=== PATIENT | female | born 1930 | race Caucasian/White ===

== ENCOUNTER 2016-10-02 10:55 | Emergency (ER) | payer MEDICARE ==
--- NOTE | 2016-10-02 12:11 | XR ---
EXAMINATION TYPE: XR chest 2V DATE OF EXAM: 10/02/2016 12:05 PM COMPARISON: Chest x-ray May 27, 2015. CTA chest January 08, 2016. HISTORY: Left-sided chest pain today TECHNIQUE: Frontal and lateral views of the chest are obtained. FINDINGS: Chronic emphysematous change is redemonstrated. There is no focal air space opacity, pleur al effusion, or pneumothorax seen. The cardiac silhouette size is stable in the upper limits of norm al with atherosclerotic and ectatic thoracic aorta redemonstrated. There is metallic stent graft in t he abdominal aorta noted. Prominence of right paratracheal stripe corresponds to brachiocephalic art deonte takeoff on CT. The osseous structures are demineralized. IMPRESSION: Chronic emphysematous change without acute pulmonary process. No significant change from prior studies.
--- NOTE | 2016-10-02 12:11 | ED ---
General Adult HPI - General Chief complaint: Chest Pain Stated complaint: Chest Pain Time Seen by Provider: 10/02/16 11:29 Source: patient, EMS, RN notes reviewed Mode of arrival: EMS Limitations: no limitations - History of Present Illness Initial comments: Chief complaint and history of present illness this is an 86-year-old female here with family. Patient reports she awakened this morning has pain to her left axillary region and wraps around to her upper back with deep breathing. Slightly with coughing. Slightly reproducible with palpation. No rashes noted early shingles discussed. No fever. No productive cough. - Related Data Home Medications Medication Instructions Recorded Confirmed Atorvastatin [Lipitor] 20 mg PO DAILY 10/02/16 10/02/16 amLODIPine [Norvasc] 5 mg PO DAILY 10/02/16 10/02/16 Previous Rx's Medication Instructions Recorded Ibuprofen [Motrin] 400 mg PO Q6HR PRN #20 tab 10/02/16 Allergies Allergy/AdvReac Type Severity Reaction Status Date / Time No Known Allergies Allergy Verified 10/02/16 12:22 Review of Systems ROS Statement: Those systems with pertinent positive or pertinent negative responses have been documented in the HPI. Review of systems no visual acuity changes patient is hard of hearing does not have her hearing aids today. No complaint neck pain. Her discomfort as noted above to the left axillary region. No complaint of shortness of breath. The discomfort does increase with breathing. Does not seem to decrease with splinting the area. No abdominal pain, no nausea ,no vomiting ,no reported neuro deficits., Past medical problems hyperlipidemia hypertension hearing disorder, cancers include stomach, breast twice, cervical and basal cell leg and second surgery for lymphoma the stomach. The patient's also had pulmonary emboli 2 years ago on Xarelto is taken off. The patient's surgeries include tonsils, hysterectomy and two thirds of her stomach removed. Family history sister had pancreatic cancer. Patient has no ALLERGIES. She quit smoking over 20 years ago drinks one glass of wine per night for medicinal purposes. ROS Other: All systems not noted in ROS Statement are negative. Past Medical History Past Medical History: Cancer, Hearing Disorder / Deafness, Hyperlipidemia, Hypertension, Pulmonary Embolus (PE) Additional Past Medical History / Comment(s): cervical ca, lymphoma, bilateral breast cancer, skin cancer, STOMACH CANCER, HX HEPATITIS A CHILD, VERTIgO History of Any Multi-Drug Resistant Organisms: None Reported Past Surgical History: Hysterectomy Additional Past Surgical History / Comment(s): 2/3 stomach removed, bilateral masectomy, skin cancer removal, ETHAN CATARACTS Past Anesthesia/Blood Transfusion Reactions: Motion Sickness Additional Past Anesthesia/Blood Transfusion Reaction / Comment(s): VERTIGO Past Psychological History: No Psychological Hx Reported Additional Psychological History / Comment(s): PT LIVES IN OWN HOME WITH 2 CATS.PT STATED GETS AROUND WITHOUT A CANE OR WALKER. 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 Smoking Status: Former smoker Past Alcohol Use History: Daily Additional Past Alcohol Use History / Comment(s): STARTED SMOKING AT AGE 22 QUIT , ENJOYS 1 GLASS OF RED WINE A NIGHT Past Drug Use History: None Reported - Past Family History Mother Family Medical History: CVA/TIA Additional Family Medical History / Comment(s): AGE 94 IN HER SLEEP. Father Family Medical History: Myocardial Infarction ([place]) Additional Family Medical History / Comment(s): FROM [place] AGE 55 General Exam - General Exam Comments Initial Comments: General: The patient is awake and alert, in no distress, and does not appear acutely ill. States she's has pain to her left axillary region with deep breathing. Started this morning. No known injury. Vital signs show temperature 97.3 pulse 80 respiratory rate 20 pulse ox 99% on 2 L. Blood pressure 161/79. Elevated systolic noted. Patient does have some discomfort. This be rechecked. She will be following up with her family physician in the next 1-4 weeks. Eye: Pupils are equal, round and reactive to light, extra-ocular movements are intact ; there is normal conjunctiva bilaterally. No signs of icterus. Ears, nose, mouth and throat: There are moist mucous membranes and no oral lesions. Neck: The neck is supple, there is no tenderness , no anterior cervical lymphadenopathy, thyroid not enlarged. Cardiovascular: There is a regular rate and rhythm. No murmur, rub or gallop is appreciated. Respiratory: Lungs are clear to auscultation, respirations are non-labored, breath sounds are equal. No wheezes, stridor, rales, or rhonchi. Deep breathing causes discomfort to the left axillary region. Small area over the patient appears to been scratching or itching. Early shingles was discussed she and her family member told to continue to watch this area should she developed shingles this should be reported to her family physician. Gastrointestinal: Soft, non-distended, non-tender abdomen without masses or organomegaly noted. There is no rebound or guarding present. No CVA tenderness. Bowel sounds are unremarkable. No change in appetite or bowel movements. Back: There is no tenderness to palpation in the midline. There is no obvious deformity. No rashes noted. Again early shingles discussed. Musculoskeletal: Normal ROM, no tenderness, right leg slightly edematous left leg normal. She reports her right leg shows a little swollen.. There is no calf tenderness or swelling. Sensation intact. Neurological: No complaint of any neuro deficits, no complaint of balance problems. No evidence of any focal or lateralizing findings. Skin: No rashes noted. Early shingles discussed. Limitations: no limitations Course Vital Signs 10/02/16 10:57 Temperature 97.3 F L Pulse Rate 80 Respiratory 20 Rate Blood Pressure 161/79 O2 Sat by Pulse 99 Oximetry EKG Findings - EKG Comments: EKG Findings:: EKG was done and reviewed at 1113 showing sinus bradycardia rate 57. Left ventricular hypertrophy noted. Age undetermined anterior DE. CO interval is 186 QRS [address] Escalante Medical Decision Making - Medical Decision Making Medical decision making; chest x-ray was done and reviewed by radiologist his impression is a chronic emphysematous changes redemonstrated. There is no focal airspace opacity., Pleural effusion, or pneumothorax seen. Cardiac silhouette size is stable in the upper limits of normal with atherosclerotic and ectatic thoracic aorta redemonstrated. There is metallic stent and graft in the abdominal aorta noted. Prominence of the right peritracheal stripe corresponds to brachial cephalic artery takeoff on CT. The osseous structures are demineralized. Impression; chronic emphysematous changes without acute bony process. No significant change from prior studies. As read by Dr. chi Patient appears to have either pleuritic discomfort or costochondritis. Due to poor hearing problem and advanced age difficulty determine which. We did discuss early onset shingles and this will be watched by her family member who takes care of her. In the meanwhile the patient be placed on ibuprofen 400 mg 1 every 6 hours for the next several days and advised to watch for rash development and follow-up with family physician. Disposition Clinical Impression: Costochondritis, acute Disposition: HOME SELF-CARE Condition: Fair Instructions: Costochondritis (ED) Additional Instructions: Take the pain medication started first with Tylenol if that's not sufficient use ibuprofen. Watch for any rash and may signal shingles. If you do see a rash contact her family physician for antiviral medications. Prescriptions: Ibuprofen [Motrin] 400 mg PO Q6HR PRN #20 tab PRN Reason: Pain Time of Disposition: 12:29
[2016-10-02 12:31] VITALS: BP 161/69; PULSE 56; RESP 17; TEMP 97.5
== END 2016-10-02 12:43 | disposition home or self-care (01) ==
LOC: EC 10:55
DX: M94.0 Chondrocostal junction syndrome [Tietze] (principal); E78.5 Hyperlipidemia, unspecified; I10 Essential (primary) hypertension; H91.90 Unspecified hearing loss, unspecified ear; Z85.028 Personal history of other malignant neoplasm of stomach; Z85.3 Personal history of malignant neoplasm of breast; Z85.41 Personal history of malignant neoplasm of cervix uteri; Z85.828 Personal history of other malignant neoplasm of skin; Z86.711 Personal history of pulmonary embolism; Z87.891 Personal history of nicotine dependence; Z79.899 Other long term (current) drug therapy
CPT/HCPCS: 71020; 93005; 99285

== ENCOUNTER 2016-10-14 11:46 | Observation (INO) | payer MEDICARE ==
--- NOTE | 2016-10-14 12:07 | ED ---
General Adult HPI - General Chief complaint: Chest Pain Stated complaint: abdominal pain Time Seen by Provider: 10/14/16 11:55 Source: patient, RN notes reviewed Mode of arrival: EMS Limitations: physical limitation - History of Present Illness Initial comments: This is an 86-year-old female with past medical history significant for an aortic abdominal aneurysm repair and also she had a pulmonary embolism about one year ago on the right side. Patient comes in today complaining of left- sided chest pain. She states it started yesterday and it's a pressure sensation but it is worse with deep breathing. Patient denies any shortness of breath. Patient denies any radiation of the pain she states it doesn't go to her neck back or arm. Patient denies any diaphoretic episodes. Patient denies any abdominal pain patient denies nausea vomiting or diarrhea. Patient denies any recent fever chills or cough. Patient denies any headache patient denies numbness weakness. Patient denies any dizziness lightheadedness or near syncopal episode. - Related Data Home Medications Medication Instructions Recorded Confirmed Atorvastatin [Lipitor] 20 mg PO DAILY 10/02/16 10/14/16 amLODIPine [Norvasc] 5 mg PO DAILY 10/02/16 10/14/16 Allergies Allergy/AdvReac Type Severity Reaction Status Date / Time No Known Allergies Allergy Verified 10/14/16 11:56 Review of Systems ROS Statement: Those systems with pertinent positive or pertinent negative responses have been documented in the HPI. ROS Other: All systems not noted in ROS Statement are negative. Past Medical History Past Medical History: Cancer, Hearing Disorder / Deafness, Hyperlipidemia, Hypertension, Pulmonary Embolus (PE) Additional Past Medical History / Comment(s): cervical ca, lymphoma, bilateral breast cancer, skin cancer, STOMACH CANCER, HX HEPATITIS A CHILD, VERTIgO History of Any Multi-Drug Resistant Organisms: None Reported Past Surgical History: Hysterectomy Additional Past Surgical History / Comment(s): 2/3 stomach removed, bilateral masectomy, skin cancer removal, ETHAN CATARACTS Past Anesthesia/Blood Transfusion Reactions: Motion Sickness Additional Past Anesthesia/Blood Transfusion Reaction / Comment(s): VERTIGO Past Psychological History: No Psychological Hx Reported Additional Psychological History / Comment(s): PT LIVES IN OWN HOME WITH 2 CATS.PT STATED GETS AROUND WITHOUT A CANE OR WALKER. 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 Smoking Status: Former smoker Past Alcohol Use History: Daily Additional Past Alcohol Use History / Comment(s): STARTED SMOKING AT AGE 22 QUIT , ENJOYS 1 GLASS OF RED WINE A NIGHT Past Drug Use History: None Reported - Past Family History Mother Family Medical History: CVA/TIA Additional Family Medical History / Comment(s): AGE 94 IN HER SLEEP. Father Family Medical History: Myocardial Infarction ([place]) Additional Family Medical History / Comment(s): FROM [place] AGE 55 General Exam - General Exam Comments Initial Comments: GENERAL: Patient is well-developed and well-nourished. Patient is nontoxic and well- hydrated and is in mild distress. ENT: Neck is soft and supple. No significant lymphadenopathy is noted. Oropharynx is clear. Moist mucous membranes. Neck has full range of motion without eliciting any pain. EYES: The sclera were anicteric and conjunctiva were pink and moist. Extraocular movements were intact and pupils were equal round and reactive to light. Eyelids were unremarkable. PULMONARY: Unlabored respirations. Good breath sounds bilaterally. No audible rales rhonchi or wheezing was noted. CARDIOVASCULAR: There is a regular rate and rhythm without any murmurs gallops or rubs. ABDOMEN: Soft and nontender with normal bowel sounds. SKIN: Skin is clear with no lesions or rashes and otherwise unremarkable. NEUROLOGIC: Patient is alert and oriented x3. Cranial nerves II through XII are grossly intact. Motor and sensory are also intact. Normal speech, volume and content. Symmetrical smile. MUSCULOSKELETAL: Normal extremities with adequate strength and full range of motion. No lower extremity swelling or edema. No calf tenderness. LYMPHATICS: No significant lymphadenopathy is noted PSYCHIATRIC: Normal psychiatric evaluation. Limitations: physical limitation Course Vital Signs 10/14/16 10/14/16 10/14/16 11:52 12:12 13:48 Temperature 96.9 F L Pulse Rate 64 70 Pulse Rate [ 63 Crisis Clinician ] Respiratory 18 18 Rate Blood Pressure 184/93 167/64 O2 Sat by Pulse 97 98 Oximetry 10/14/16 14:50 Temperature 97.2 F L Pulse Rate 57 L Pulse Rate [ Crisis Clinician ] Respiratory 20 Rate Blood Pressure 144/63 O2 Sat by Pulse 99 Oximetry Medical Decision Making - Medical Decision Making EKG shows sinus bradycardia 58 bpm. It was 178 QRSs 82 QT interval 418 QTC of 410 per patient's EKG shows no ST segment elevation or depression or T-wave abdomen is noted. Chest x-ray shows normality. patient's d-dimer was elevated i sent the patient for a ct of the chest to rule out pe. radiology read the cat scan and stated there was no PE. Patient still has chest discomfort so the patient will be admitted. Patient will be getting heparin aspirin and Nitropaste and those will continue on the floor. I spoke with because he agreed to admit the patient admitted the patient and consult cardiology I wrote admitting orders. - Lab Data Result diagrams: 10/14/16 12:08 10/14/16 12:08 Lab Results 10/14/16 10/14/16 10/14/16 Range/Units 12:08 12:08 12:08 WBC 7.0 (3.8-10.6) k/uL RBC 5.17 (3.80-5.40) m/uL Hgb 15.6 (11.4-16.0) gm/dL Hct 48.5 H (34.0-46.0) % MCV 94.0 (80.0-100.0) fL MCH 30.2 (25.0-35.0) pg MCHC 32.2 (31.0-37.0) g/dL RDW 14.3 (11.5-15.5) % Plt Count 200 (150-450) k/uL Neutrophils % 63 % Lymphocytes % 24 % Monocytes % 8 % Eosinophils % 3 % Basophils % 0 % Neutrophils # 4.4 (1.3-7.7) k/uL Lymphocytes # 1.7 (1.0-4.8) k/uL Monocytes # 0.5 (0-1.0) k/uL Eosinophils # 0.2 (0-0.7) k/uL Basophils # 0.0 (0-0.2) k/uL PT (9.0-12.0) sec INR (<1.1) APTT (22.0-30.0) sec D-Dimer (<0.60) mg/L FEU Sodium 140 (137-145) mmol/L Potassium 5.0 (3.5-5.1) mmol/L Chloride 104 (98-107) mmol/L Carbon Dioxide 25 (22-30) mmol/L Anion Gap 11 mmol/L BUN 13 (7-17) mg/dL Creatinine 0.85 (0.52-1.04) mg/dL Est GFR (MDRD) Af Amer >60 (>60 ml/min/1.73 sqM) Est GFR (MDRD) Non-Af >60 (>60 ml/min/1.73 sqM) Glucose 95 (74-99) mg/dL Calcium 9.6 (8.4-10.2) mg/dL Magnesium 2.0 (1.6-2.3) mg/dL Total Bilirubin 0.9 (0.2-1.3) mg/dL AST 27 (14-36) U/L ALT 25 (9-52) U/L Alkaline Phosphatase 115 (38-126) U/L Total Creatine Kinase 44 (30-135) U/L CK-MB (CK-2) 0.3 (0.0-2.4) ng/mL CK-MB (CK-2) Rel Index 0.7 Troponin I <0.012 (0.000-0.034) ng/mL Total Protein 6.9 (6.3-8.2) g/dL Albumin 4.0 (3.5-5.0) g/dL 10/14/16 Range/Units 12:08 WBC (3.8-10.6) k/uL RBC (3.80-5.40) m/uL Hgb (11.4-16.0) gm/dL Hct (34.0-46.0) % MCV (80.0-100.0) fL MCH (25.0-35.0) pg MCHC (31.0-37.0) g/dL RDW (11.5-15.5) % Plt Count (150-450) k/uL Neutrophils % % Lymphocytes % % Monocytes % % Eosinophils % % Basophils % % Neutrophils # (1.3-7.7) k/uL Lymphocytes # (1.0-4.8) k/uL Monocytes # (0-1.0) k/uL Eosinophils # (0-0.7) k/uL Basophils # (0-0.2) k/uL PT 10.8 (9.0-12.0) sec INR 1.1 (<1.1) APTT 18.7 L (22.0-30.0) sec D-Dimer 4.49 H (<0.60) mg/L FEU Sodium (137-145) mmol/L Potassium (3.5-5.1) mmol/L Chloride (98-107) mmol/L Carbon Dioxide (22-30) mmol/L Anion Gap mmol/L BUN (7-17) mg/dL Creatinine (0.52-1.04) mg/dL Est GFR (MDRD) Af Amer (>60 ml/min/1.73 sqM) Est GFR (MDRD) Non-Af (>60 ml/min/1.73 sqM) Glucose (74-99) mg/dL Calcium (8.4-10.2) mg/dL Magnesium (1.6-2.3) mg/dL Total Bilirubin (0.2-1.3) mg/dL AST (14-36) U/L ALT (9-52) U/L Alkaline Phosphatase (38-126) U/L Total Creatine Kinase (30-135) U/L CK-MB (CK-2) (0.0-2.4) ng/mL CK-MB (CK-2) Rel Index Troponin I (0.000-0.034) ng/mL Total Protein (6.3-8.2) g/dL Albumin (3.5-5.0) g/dL Critical Care Time Critical Care Time: Yes Total Critical Care Time: 35 Disposition Clinical Impression: Unstable angina pectoris Disposition: ADMITTED IP TO THIS [facility] Time of Disposition: 15:11
[2016-10-14 12:27] LABS: Basophils % (A) 0 %; CH 30.4; CHCM 32.4; Eosinophils # (A) 0.2 k/uL (0-0.7); Eosinophils % (A) 3 %; HCT 48.5 % (34.0-46.0); HDW 2.32; HGB 15.6 gm/dL (11.4-16.0); Luc # (Auto) 0.11; Luc % (Auto) 2; Lymphocytes # (A) 1.7 k/uL (1.0-4.8); Lymphocytes % (A) 24 %; MCH 30.2 pg (25.0-35.0); MCHC 32.2 g/dL (31.0-37.0); Mean Platelet Volume 8.2; Monocytes # (A) 0.5 k/uL (0-1.0); Monocytes % (A) 8 %; Neutrophils # (A) 4.4 k/uL (1.3-7.7); Neutrophils % (A) 63 %; RBC 5.17 m/uL (3.80-5.40); RDW 14.3 % (11.5-15.5); WBC (Perox) 7.23
--- NOTE | 2016-10-14 12:33 | XR ---
EXAMINATION TYPE: XR chest 2V DATE OF EXAM: 10/14/2016 12:26 PM COMPARISON: 10/02/2016 HISTORY: 86-year-old female with left-sided chest pain TECHNIQUE: Frontal and lateral views FINDINGS: Heart is upper limits of normal in size. Aorta and pulmonary vasculature within normal limits. Increa sed AP chest dimension secondary to a pronounced thoracic kyphosis. No consolidation or pleural effus ion seen. There is endovascular stent graft of the abdominal aorta. IMPRESSION: Chronic changes and a marked thoracic kyphosis. No acute cardiopulmonary process seen.
[2016-10-14 12:39] LABS: Anion Gap 11 mmol/L; Calcium 9.6 mg/dL (8.4-10.2); Carbon Dioxide 25 mmol/L (22-30); Chloride 104 mmol/L (98-107); Glucose 95 mg/dL (74-99); Non-African American GFR(MDRD) >60 (>60 ml/min/1.73 sqM); Sodium 140 mmol/L (137-145); Total Bilirubin 0.9 mg/dL (0.2-1.3); Total Protein 6.9 g/dL (6.3-8.2)
[2016-10-14 12:42] LABS: AST 27 U/L (14-36); Blood Urea Nitrogen 13 mg/dL (7-17)
[2016-10-14 12:43] LABS: ALT 25 U/L (9-52); Alkaline Phosphatase 115 U/L (38-126)
[2016-10-14 12:50] LABS: Creatine Kinase 44 U/L (30-135)
[2016-10-14 13:06] LABS: Creatine Kinase MB 0.3 ng/mL (0.0-2.4); Troponin I <0.012 ng/mL (0.000-0.034)
[2016-10-14 13:21] LABS: INR 1.1 (<1.1); Prothrombin Time 10.8 sec (9.0-12.0)
[2016-10-14 13:22] LABS: Partial Thromboplastin Time 18.7 sec (22.0-30.0)
[2016-10-14] MEDS ORDERED: RX INFO: IV CONTRAST WAS GIVEN 1 EACH MISC MISCELLANE PRN (13:25)
--- NOTE | 2016-10-14 14:37 | CT ---
EXAMINATION TYPE: CT chest angio for PE DATE OF EXAM: 10/14/2016 2:12 PM COMPARISON: 01/08/2016 and radiograph same day HISTORY: 86-year-old female with pain, evaluate for PE. TECHNIQUE: Contiguous axial scanning of the chest performed with IV Contrast, patient injected with 1 00 ml mL of Omnipaque 350. Delayed coronal/sagittal MIP reconstructions performed. CT DLP: 322 mGycm Automated exposure control for dose reduction was used. FINDINGS: The heart is upper limits of normal in size without pericardial effusion. Coronary vessel calcificati ons are present and are remarkable for coronary artery disease. Aorta is normal caliber with moderate atherosclerotic calcifications and conventional arch vessel bra nching anatomy. Moderate plaque is present in the proximal left subclavian artery with mild narrowing . There is satisfactory opacification of the pulmonary arterial system with large caliber to the main r ight and left pulmonary arteries which measure 3.1 and 2.7 cm, respectively, suggesting underlying pu lmonary arterial hypertension. There is small amount of mural-based low density along the roof of the distal right main pulmonary artery which may represent small amount of chronic thrombus. No acute pu lmonary embolus is seen. A few nonenlarged mediastinal lymph nodes are present. No thoracic lymphadenopathy. Lungs show mild emphysematous change and some strandy atelectasis at the lung bases. No consolidation or pleural effusion. There is some reflux of contrast into the IVC and hepatic veins. Upper abdomen shows mild diffuse thi ckening of the adrenal glands without discrete nodularity. Abdominal aortic endovascular stent graft is present. Bones: Degenerative disc disease especially in the mid to lower thoracic spine with accentuated thora cic kyphosis. IMPRESSION: 1. NO EVIDENCE FOR ACUTE PULMONARY EMBOLUS. SOME LOW-DENSITY MATERIAL ADHERENT TO THE ROOF OF THE RIG HT MAIN PULMONARY ARTERY COULD REPRESENT SOME CHRONIC THROMBUS. 2. 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
[2016-10-14] MEDS ORDERED: HEPARIN SODIUM,PORCINE 5,000 UNIT/ML 1 ML VIAL IV ONE (15:09)
[2016-10-14] MEDS ORDERED: ASPIRIN 81 MG CHEW PO STA (15:13)
[2016-10-14] MEDS ORDERED: NITROGLYCERIN SL TABS 0.4 MG TAB SUBLINGUAL PRN (15:13)
[2016-10-14] MEDS ORDERED: HEPARIN SODIUM,PORCINE/D5W PMX 25,000 UNIT in DEXTROSE/WATER 1 500ML.BAG IV SCH (15:15)
[2016-10-14] MEDS ORDERED: IBUPROFEN 400 MG TAB PO PRN (16:28)
[2016-10-14] MEDS: NITROGLYCERIN OINT 1 INCH/GM PACKET TOPICAL SCH ×2 (18:18→23:59)
--- NOTE | 2016-10-14 18:18 | P.HPIM ---
History of Present Illness H&P Date: 10/14/16 Chief Complaint: CP 86 yr old with history of multiple cancers, PE, COPD is admitted to the hospital with complaints of left sided chest pain, that started while pt was resting, states it was 6/10, non radiating, exacerbated with deep breathing. No alleviating factors are reported. Pt states that pain has been constant since the last 24 hrs, onset of pain. Denies recent uri symptoms, cough. Pt has had a MALTOMA< Breast cancer times 2, basal cell cancer and cervical cancer. Pt was noted to be hypoxic, CTA was negative on admission, however was noted to have an enlarged pulmonary artery. Review of Systems All systems: negative (noted in HPI) Past Medical History Past Medical History: Cancer, Hearing Disorder / Deafness, Hyperlipidemia, Hypertension, Pulmonary Embolus (PE) Additional Past Medical History / Comment(s): cervical ca, lymphoma, bilateral breast cancer, skin cancer, STOMACH CANCER, HX HEPATITIS A CHILD, VERTIgO History of Any Multi-Drug Resistant Organisms: None Reported Past Surgical History: Hysterectomy Additional Past Surgical History / Comment(s): 2/3 stomach removed, bilateral masectomy, skin cancer removal, ETHAN CATARACTS Past Anesthesia/Blood Transfusion Reactions: Motion Sickness Additional Past Anesthesia/Blood Transfusion Reaction / Comment(s): VERTIGO Past Psychological History: No Psychological Hx Reported Additional Psychological History / Comment(s): PT LIVES IN OWN HOME WITH 2 CATS.PT STATED GETS AROUND WITHOUT A CANE OR WALKER. 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 Smoking Status: Former smoker Past Alcohol Use History: Daily Additional Past Alcohol Use History / Comment(s): STARTED SMOKING AT AGE 22 QUIT , ENJOYS 1 GLASS OF RED WINE A NIGHT Past Drug Use History: None Reported - Past Family History Mother Family Medical History: CVA/TIA Additional Family Medical History / Comment(s): AGE 94 IN HER SLEEP. Father Family Medical History: Myocardial Infarction ([place]) Additional Family Medical History / Comment(s): FROM [place] AGE 55 Medications and Allergies Home Medications Medication Instructions Recorded Confirmed Type Atorvastatin [Lipitor] 20 mg PO DAILY 10/02/16 10/14/16 History amLODIPine [Norvasc] 5 mg PO DAILY 10/02/16 10/14/16 History Allergies Allergy/AdvReac Type Severity Reaction Status Date / Time No Known Allergies Allergy Verified 10/14/16 11:56 Physical Exam Vitals: Vital Signs Temp Pulse Pulse Resp BP BP Pulse Ox 10/14/16 16:00 98.0 F 68 18 142/61 98 10/14/16 15:45 98.4 F 10/14/16 15:42 69 18 160/71 99 Intake and Output 10/14/16 10/14/16 10/14/16 06:59 14:59 22:59 Intake Total 100 Balance 100 Intake: Oral 100 Other: Weight 51.2 kg Patient Weight 10/15/16 06:59 Weight 51.2 kg Gen alert oriented times 3 Lungs Diminished breath sounds, no wheezing, crackles HEart RRR< s1, s2 heard, no mumurs Abdomen Soft , non tender BS present, no organomegaly. Lower ext no edema noted. Neuro No focal motor or sensory deficits noted. At baseline, pt doesnot ambualte, is bedridden most of the time. Results CBC & Chem 7: 10/14/16 12:08 10/14/16 12:08 Assessment and Plan Plan: 1. Acute hypoxic respiratory failure, unknown etiology , question of chronic hypoxia 2. Atypical CP, rule out acs, unlikely cardiac in nature 3. HTN, stable 4. COPD, 5. Underlying pulmonary HTN 6. Dyslipidemia 7. Multiple cancers, currently in remission Plan Echocardiogram to eval RVSP. Titrate down o2. O2 test at bedside Cardiology consult. Cardiac enzymes.
[2016-10-14 18:42] LABS: Creatine Kinase <20 U/L (30-135)
[2016-10-14 18:54] LABS: Troponin I <0.012 ng/mL (0.000-0.034)
[2016-10-14 18:59] LABS: Creatine Kinase MB <0.2 ng/mL (0.0-2.4)
[2016-10-15 00:58] LABS: Creatine Kinase <20 U/L (30-135)
[2016-10-15 01:11] LABS: Creatine Kinase MB 0.3 ng/mL (0.0-2.4); Troponin I <0.012 ng/mL (0.000-0.034)
[2016-10-15 01:30] LABS: Cholesterol 146 mg/dL (<200); HDL Cholesterol 74 mg/dL (40-60); Triglycerides 82 mg/dL (<150)
[2016-10-15] MEDS: NITROGLYCERIN OINT 1 INCH/GM PACKET TOPICAL SCH ×2 (06:38→12:36)
[2016-10-15] MEDS ORDERED: ATORVASTATIN 20 MG TAB PO SCH (09:00)
[2016-10-15] MEDS ORDERED: ASPIRIN 325 MG TAB PO SCH (09:00)
[2016-10-15] MEDS ORDERED: amLODIPine 5 MG TAB PO SCH (09:00)
--- NOTE | 2016-10-15 10:08 | ECHOF ---
Referral Reason:pulmonary HTN MEASUREMENTS -------- HEIGHT: 157.5 cm WEIGHT: 50.8 kg BP: RVIDd: 2.4 cm (< 3.3) IVSd: 0.9 cm (0.6 - 1.1) LVIDd: 4.1 cm (3.9 - 5.3) LVPWd: 1.0 cm (0.6 - 1.1) IVSs: 1.2 cm LVIDs: 3.1 cm LVPWs: 1.4 cm LA Diam: 3.5 cm (2.7 - 3.8) LAESV Index (A-L): 25.98 ml/m Ao Diam: 3.1 cm (2.0 - 3.7) AV Cusp: 1.9 cm (1.5 - 2.6) LA Diam: 3.3 cm (2.7 - 3.8) MV EXCURSION: 16.703 mm (> 18.000) MV EF SLOPE: 73 mm/s (70 - 150) EPSS: 0.5 cm MV E Brendan: 0.45 m/s MV DecT: 374 ms MV A Brendan: 0.80 m/s MV E/A Ratio: 0.56 RAP: 5.00 mmHg RVSP: 24.28 mmHg FINDINGS -------- Sinus rhythm. This was a technically adequate study. There is mild concentric left ventricular hypertrophy. Overall left ventricular systolic function is low-normal with, an EF between 50 - 55 %. The right ventricle is normal in size. Normal LA size by volume 22+/-6 ml/m2. There is an area of intrest seen in the RA There is mild aortic valve sclerosis. There is no evidence of aortic regurgitation. Mild mitral annular calcification present. Mild mitral regurgitation is present. Mild tricuspid regurgitation present. There is no evidence of pulmonary hypertension. The right ventricular systolic pressure, as measured by Doppler, is 24.28mmHg. There is no pulmonic regurgitation present. The aortic root size is normal. There is no pericardial effusion. CONCLUSIONS -------- 1. There is mild concentric left ventricular hypertrophy. 2. Overall left ventricular systolic function is low-normal with, an EF between 50 - 55 %. 3. There is mild aortic valve sclerosis. 4. Mild mitral annular calcification present. 5. Mild mitral regurgitation is present. 6. Mild tricuspid regurgitation present. 7. There is no evidence of pulmonary hypertension. 8. The right ventricular systolic pressure, as measured by Doppler, is 24.28mmHg. AIRPLANE RIGGER: Oneida Georges RDCS
--- NOTE | 2016-10-15 10:43 | P.CRDCN ---
History of Present Illness Consult date: 10/15/16 Chief complaint: Chest discomfort History of present illness: This is a pleasant 86-year-old female patient who sees Dr. Ortiz as an outpatient with a known history of breast cancer and history of PE presented to the hospital was atypical and pleuritic chest discomfort. In view of her history she underwent a CTA of the chest which showed no evidence of acute PE but chronic PE. The EKG showed sinus rhythm without any significant ST or T-wave abnormalities. She had 3 sets of cardiac enzymes came in to be unremarkable. I recommended proceeding with a stress test. The patient would like to go home and have the test done as an outpatient. I will get the patient up and around and she is asymptomatic she can be discharged home when she follows with Dr. Ortiz in the office next week. Past Medical History Past Medical History: Cancer, Hearing Disorder / Deafness, Hyperlipidemia, Hypertension, Pulmonary Embolus (PE) Additional Past Medical History / Comment(s): cervical ca, lymphoma, bilateral breast cancer, skin cancer, STOMACH CANCER, HX HEPATITIS A CHILD, VERTIgO, AAA(UNK SIZE), UTI, EATS SMALL FREQ MEALS D/T HAVING 2/3 STOMACH REMOVED. History of Any Multi-Drug Resistant Organisms: None Reported Past Surgical History: Hysterectomy Additional Past Surgical History / Comment(s): 2/3 stomach removed, bilateral masectomy, skin cancer removal, ETHAN CATARACTS Past Anesthesia/Blood Transfusion Reactions: Motion Sickness Additional Past Anesthesia/Blood Transfusion Reaction / Comment(s): VERTIGO Past Psychological History: No Psychological Hx Reported Additional Psychological History / Comment(s): PT LIVES IN OWN HOME WITH 1 CAT.PT STATED GETS AROUND WITHOUT A CANE OR WALKER.STILL DRIVES, HAS PERSON COME IN TO CLEAN HOUSE EVERY OTHER WEEK. 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 Smoking Status: Former smoker Past Alcohol Use History: Daily Additional Past Alcohol Use History / Comment(s): STARTED SMOKING AT AGE 22 QUIT , ENJOYS 1 GLASS OF WINE A NIGHT Past Drug Use History: None Reported - Past Family History Mother Family Medical History: CVA/TIA Additional Family Medical History / Comment(s): AGE 94 IN HER SLEEP. Father Family Medical History: Myocardial Infarction ([place]) Additional Family Medical History / Comment(s): FROM [place] AGE 55 Medications and Allergies Home Medications Medication Instructions Recorded Confirmed Type Atorvastatin [Lipitor] 20 mg PO DAILY 10/02/16 10/14/16 History amLODIPine [Norvasc] 5 mg PO DAILY 10/02/16 10/14/16 History Allergies Allergy/AdvReac Type Severity Reaction Status Date / Time No Known Allergies Allergy Verified 10/14/16 11:56 Physical Exam Vitals: Vital Signs Temp Pulse Pulse Pulse Resp BP BP 10/15/16 08:00 98.1 F 61 18 129/64 10/15/16 04:00 98.6 F 66 16 116/55 10/15/16 00:00 98.3 F 80 16 118/72 10/14/16 20:00 16 10/14/16 19:50 98.4 F 64 18 126/62 10/14/16 16:05 60 16 10/14/16 16:00 98.0 F 68 18 142/61 10/14/16 15:45 98.4 F 10/14/16 15:42 69 18 160/71 Pulse Ox 10/15/16 08:00 99 10/15/16 04:00 92 L 10/15/16 00:00 98 10/14/16 20:00 10/14/16 19:50 99 10/14/16 16:05 10/14/16 16:00 98 10/14/16 15:45 10/14/16 15:42 99 Intake and Output 10/14/16 10/15/16 10/15/16 22:59 06:59 14:59 Intake Total 218 120.584 Balance 218 120.584 Intake: Intake, IV Titration 120.584 Amount Heparin Sodium,Porcine/ 120.584 D5w Pmx 25,000 unit In Dextrose/Water 1 500ml. bag @ 12 UNITS/KG/HR 12. 41 mls/hr IV .Q24H [facility] Rx #:[id number] Oral 218 Other: Voiding Method Toilet Toilet Toilet # Voids 1 Weight 51.2 kg - Constitutional General appearance: no acute distress - Respiratory Respiratory: bilateral: CTA - Cardiovascular Rhythm: regular Heart sounds: normal: S1, S2 Results 10/14/16 12:08 10/14/16 12:08 Cardiac Enzymes 10/14/16 10/15/16 Range/Units 17:59 00:09 CK-MB (CK-2) <0.2 0.3 (0.0-2.4) ng/mL Troponin I <0.012 <0.012 (0.000-0.034) ng/mL Coagulation 10/15/16 10/15/16 Range/Units 00:09 07:24 APTT 34.3 H >200.0 H* (22.0-30.0) sec Current Medications Generic Name Dose Route Start Last Admin Trade Name Freq PRN Reason Stop Dose Admin Amlodipine Besylate 5 mg 10/15/16 09:00 Norvasc PO DAILY [facility] Aspirin 325 mg 10/15/16 09:00 Aspirin PO DAILY [facility] Atorvastatin Calcium 20 mg 10/15/16 09:00 Lipitor PO DAILY [facility] Heparin Sodium/Dextrose 25,000 500 mls @ 12.41 mls/hr 10/14/16 15:15 01:23 unit/ IV Solution IV 15 units/kg/hr .Q24H [facility]ANDI 15.51 mls/hr Protocol Titration 12 UNITS/KG/HR Ibuprofen 400 mg 10/14/16 16:28 10/14/16 18:21 Motrin PO 400 mg Q6HR PRN Administration Pain Miscellaneous Information 1 each 10/14/16 13:25 Rx Info: Iv Contrast Was Given MISCELLANE 10/16/16 13:25 DAILY PRN Per Protocol Nitroglycerin 1 inch 10/14/16 18:00 10/15/16 06:38 Nitro-Bid Oint TOPICAL 1 inch Q6HR MANDI Administration Nitroglycerin 0.4 mg 10/14/16 15:13 10/14/16 20:20 Nitrostat SUBLINGUAL 0.4 mg Q5M PRN Administration Chest Pain Intake and Output 10/14/16 10/15/16 10/15/16 22:59 06:59 14:59 Intake Total 218 120.584 Balance 218 120.584 Intake: Intake, IV Titration 120.584 Amount Heparin Sodium,Porcine/ 120.584 D5w Pmx 25,000 unit In Dextrose/Water 1 500ml. bag @ 12 UNITS/KG/HR 12. 41 mls/hr IV .Q24H [facility] Rx #:[id number] Oral 218 Other: Voiding Method Toilet Toilet Toilet # Voids 1 Weight 51.2 kg Assessment and Plan Plan: Assessment #1 atypical chest pain #2 history of PE Plan #1 we'll get the patient up and around and if she is asymptomatic she can be discharged home
[2016-10-15 11:54] VITALS: BP 124/59; PULSE 69; RESP 16; TEMP 98.7
--- NOTE | 2016-10-18 11:31 | DS ---
DATE OF ADMISSION: 10/14/2016 DATE OF DISCHARGE: 10/15/2016 DISCHARGE DIAGNOSES: 1. Atypical chest pain. Serial EKG's and troponins are negative but admission, resolved now. History of pulmonary embolism, currently CT angiogram is negative for pulmonary embolism. 2. Hypertension. 3. Chronic obstructive pulmonary disease. 4. Underlying pulmonary hypertension. 5. Dyslipidemia. 6. Multiple cancers history. HOSPITAL COURSE: Ms. Hernandez is an 86 -year-old with known history of multiple medical problems including multiple cancers, ( ) breast cancer x2, basal cell carcinoma and cervical cancer, came to the hospital with complaints of left-sided chest pain exacerbated with deep breathing and not associated nausea, vomiting or dizziness, lightheadedness. Patient underwent a CT angiogram ( ) showed no evidence of pulmonary embolism. Patient does have history of PE. Otherwise, the patient was monitored in the telemetry unit and serial EKGs and troponins are negative. Cardiology recommended 2-D echocardiogram showed normal ejection fraction and also there is no evidence of pulmonary hypertension on the 2-D echocardiogram. Currently patient is chest pain free and will be discharged home and will follow with cardiology as an outpatient for stress test. Patient is stable to be discharged home. DISCHARGE PHYSICAL EXAMINATION: An 86 -year-old female lying in the bed comfortably, awake, alert, oriented times three. Appears to be in no apparent distress. VITALS SIGNS: Blood pressure is 125/59, pulse is 69, respirations 16, temperature afebrile, pulse ox 96% on room air. Laboratory data reviewed. Discharge physical examination done. Discharge medications include: 1. Atorvastatin 20 mg p.o. daily. 2. Amlodipine 5 mg p.o. daily. Patient will be discharged home in stable condition. Follow with primary care physician in one to three days. Follow with Dr. Ortiz on 10/22/2016 at 4:00 p.m. Home with self-care. Heart healthy diet.
== END 2016-10-15 16:05 | disposition home or self-care (01) ==
LOC: EC 11:46 → 3OBS 15:13
PROVIDERS: ADMIT Internal Medicine; ATTEND Internal Medicine
DX: R07.89 Other chest pain (principal); J96.01 Acute respiratory failure with hypoxia; I10 Essential (primary) hypertension; J44.9 Chronic obstructive pulmonary disease, unspecified; I27.2 Other secondary pulmonary hypertension; E78.5 Hyperlipidemia, unspecified; H91.90 Unspecified hearing loss, unspecified ear; Z86.711 Personal history of pulmonary embolism; Z85.41 Personal history of malignant neoplasm of cervix uteri; Z85.3 Personal history of malignant neoplasm of breast; Z85.828 Personal history of other malignant neoplasm of skin; Z85.72 Personal history of non-Hodgkin lymphomas; Z85.028 Personal history of other malignant neoplasm of stomach; Z87.891 Personal history of nicotine dependence; Z90.13 Acquired absence of bilateral breasts and nipples; Z79.899 Other long term (current) drug therapy; Z82.49 Family history of ischemic heart disease and other diseases of the circulatory system; Z82.3 Family history of stroke
CPT/HCPCS: 36415; 93005; 93306; 85379; 80061; 80053; 82550 ×2; 82553 ×2; 83735; 84484 ×2; 85025; 85610; 85730 ×2; 71020; 71275; 99291; 96376; G0378 ×2; J1644 ×2; Q9967; 96366

== ENCOUNTER 2016-10-22 07:59 | Observation (INO) | payer MEDICARE ==
[2016-10-22] MEDS ORDERED: NITROGLYCERIN OINT 1 INCH/GM PACKET TOPICAL STA (08:31)
[2016-10-22] MEDS ORDERED: NITROGLYCERIN SL TABS 0.4 MG TAB SUBLINGUAL STA (08:31)
[2016-10-22] MEDS ORDERED: ASPIRIN 81 MG CHEW PO STA (08:31)
--- NOTE | 2016-10-22 08:33 | ED ---
General Adult HPI - General Chief complaint: Chest Pain Stated complaint: CHEST PAIN Time Seen by Provider: 10/22/16 08:00 Source: patient, family, RN notes reviewed Mode of arrival: wheelchair Limitations: no limitations - History of Present Illness Initial comments: This is an 86-year-old female who who presents emergency Department with left- sided chest pain. Patient states is no radiation of the pain patient states his been ongoing since last night and associated with this pain has been some shortness of breath. Patient states she had a similar symptoms approximately a week ago she was set to do a stress test today with Dr. Ortiz. Patient states his been no sweating is been no nausea. Patient states the pain persists at this time. Patient denies any headache patient denies any lightheadedness dizziness or near syncopal episode. Patient denies any recent fever chills or cough. Patient denies any palpitations. Patient denies any abdominal pain. - Related Data Home Medications Medication Instructions Recorded Confirmed Atorvastatin [Lipitor] 20 mg PO DAILY 10/02/16 10/22/16 amLODIPine [Norvasc] 5 mg PO DAILY 10/02/16 10/22/16 Allergies Allergy/AdvReac Type Severity Reaction Status Date / Time No Known Allergies Allergy Verified 10/22/16 08:36 Review of Systems ROS Statement: Those systems with pertinent positive or pertinent negative responses have been documented in the HPI. ROS Other: All systems not noted in ROS Statement are negative. Past Medical History Past Medical History: Cancer, Hearing Disorder / Deafness, Hyperlipidemia, Hypertension, Pulmonary Embolus (PE) Additional Past Medical History / Comment(s): cervical ca, lymphoma, bilateral breast cancer, skin cancer, STOMACH CANCER, HX HEPATITIS A CHILD, VERTIgO, AAA(UNK SIZE), UTI, EATS SMALL FREQ MEALS D/T HAVING 2/3 STOMACH REMOVED. History of Any Multi-Drug Resistant Organisms: None Reported Past Surgical History: Hysterectomy Additional Past Surgical History / Comment(s): 2/3 stomach removed, bilateral masectomy, skin cancer removal, ETHAN CATARACTS Past Anesthesia/Blood Transfusion Reactions: Motion Sickness Additional Past Anesthesia/Blood Transfusion Reaction / Comment(s): VERTIGO Past Psychological History: No Psychological Hx Reported Additional Psychological History / Comment(s): PT LIVES IN OWN HOME WITH 1 CAT.PT STATED GETS AROUND WITHOUT A CANE OR WALKER.STILL DRIVES, HAS PERSON COME IN TO CLEAN HOUSE EVERY OTHER WEEK. 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 Smoking Status: Former smoker Past Alcohol Use History: Daily Additional Past Alcohol Use History / Comment(s): STARTED SMOKING AT AGE 22 QUIT , ENJOYS 1 GLASS OF WINE A NIGHT Past Drug Use History: None Reported - Past Family History Mother Family Medical History: CVA/TIA Additional Family Medical History / Comment(s): AGE 94 IN HER SLEEP. Father Family Medical History: Myocardial Infarction ([place]) Additional Family Medical History / Comment(s): FROM [place] AGE 55 General Exam - General Exam Comments Initial Comments: GENERAL: Patient is well-developed and well-nourished. Patient is nontoxic and well- hydrated and is in mild distress ENT: Neck is soft and supple. No significant lymphadenopathy is noted. Oropharynx is clear. Moist mucous membranes. Neck has full range of motion without eliciting any pain. EYES: The sclera were anicteric and conjunctiva were pink and moist. Extraocular movements were intact and pupils were equal round and reactive to light. Eyelids were unremarkable. PULMONARY: Unlabored respirations. Good breath sounds bilaterally. No audible rales rhonchi or wheezing was noted. CARDIOVASCULAR: There is a regular rate and rhythm without any murmurs gallops or rubs. ABDOMEN: Soft and nontender with normal bowel sounds. No palpable organomegaly was noted. There is no palpable pulsatile mass. SKIN: Skin is clear with no lesions or rashes and otherwise unremarkable. NEUROLOGIC: Patient is alert and oriented x3. Cranial nerves II through XII are grossly intact. Motor and sensory are also intact. Normal speech, volume and content. Symmetrical smile. MUSCULOSKELETAL: Normal extremities with adequate strength and full range of motion. No lower extremity swelling or edema. No calf tenderness. LYMPHATICS: No significant lymphadenopathy is noted PSYCHIATRIC: Normal psychiatric evaluation. Normal interpersonal interactions appears functionally intact in deals appropriately with others. No signs of depression. No signs of anxiety. Limitations: no limitations Course Vital Signs 10/22/16 10/22/16 10/22/16 08:02 08:57 11:44 Temperature 97.5 F L Pulse Rate 80 81 80 Respiratory 20 17 17 Rate Blood Pressure 142/79 141/81 146/88 O2 Sat by Pulse 96 99 93 L Oximetry 10/22/16 10/22/16 12:47 14:25 Temperature 98.4 F 98.2 F Pulse Rate 80 65 Respiratory 16 16 Rate Blood Pressure 146/88 158/88 O2 Sat by Pulse 97 98 Oximetry Medical Decision Making - Medical Decision Making EKG shows a normal sinus rhythm at 60 bpm NC interval is 188 QRSs 88 QT interval 396 QTC is 421. Patient's EKG shows no ST segment elevation or depression or T-wave abdomen is noted. Because of the patient's significant symptoms and the fact that the patient was already scheduled for stress test I started the patient on heparin and admit her for unstable angina. I spoke with the hospitalist and they agreed to admit the patient I wrote admitting orders and consult cardiology and continue the heparin and nitroglycerin and aspirin on the floor. I went back in and reexamined the patient she stated this time she was chest pain-free and had no complaints Patient was having sore chest pain near his or repeated EKG showed normal sinus rhythm at 81 bpm NC interval is 178 QRSs 88 QT interval is 406 QTC is 471 per patient's EKG shows no ST segment elevation or depression when compared the old EKG there are no acute changes noted. - Lab Data Result diagrams: 10/22/16 08:30 10/22/16 08:30 Lab Results 10/22/16 10/22/16 10/22/16 Range/Units 08:30 08:30 08:30 WBC 6.2 (3.8-10.6) k/uL RBC 4.94 (3.80-5.40) m/uL Hgb 15.0 (11.4-16.0) gm/dL Hct 46.2 H (34.0-46.0) % MCV 93.7 (80.0-100.0) fL MCH 30.3 (25.0-35.0) pg MCHC 32.3 (31.0-37.0) g/dL RDW 14.0 (11.5-15.5) % Plt Count 218 (150-450) k/uL Neutrophils % 62 % Lymphocytes % 26 % Monocytes % 6 % Eosinophils % 4 % Basophils % 1 % Neutrophils # 3.8 (1.3-7.7) k/uL Lymphocytes # 1.6 (1.0-4.8) k/uL Monocytes # 0.4 (0-1.0) k/uL Eosinophils # 0.2 (0-0.7) k/uL Basophils # 0.1 (0-0.2) k/uL PT (9.0-12.0) sec INR (<1.1) APTT (22.0-30.0) sec Sodium 141 (137-145) mmol/L Potassium 5.6 H (3.5-5.1) mmol/L Chloride 105 (98-107) mmol/L Carbon Dioxide 26 (22-30) mmol/L Anion Gap 10 mmol/L BUN 15 (7-17) mg/dL Creatinine 0.82 (0.52-1.04) mg/dL Est GFR (MDRD) Af Amer >60 (>60 ml/min/1.73 sqM) Est GFR (MDRD) Non-Af >60 (>60 ml/min/1.73 sqM) Glucose 97 (74-99) mg/dL Calcium 9.5 (8.4-10.2) mg/dL Magnesium 2.1 (1.6-2.3) mg/dL Total Bilirubin 0.8 (0.2-1.3) mg/dL AST 27 (14-36) U/L ALT 21 (9-52) U/L Alkaline Phosphatase 100 (38-126) U/L Total Creatine Kinase <20 L (30-135) U/L CK-MB (CK-2) 0.4 (0.0-2.4) ng/mL CK-MB (CK-2) Rel Index 0.0 Troponin I <0.012 (0.000-0.034) ng/mL Total Protein 6.7 (6.3-8.2) g/dL Albumin 3.7 (3.5-5.0) g/dL 10/22/16 Range/Units 08:30 WBC (3.8-10.6) k/uL RBC (3.80-5.40) m/uL Hgb (11.4-16.0) gm/dL Hct (34.0-46.0) % MCV (80.0-100.0) fL MCH (25.0-35.0) pg MCHC (31.0-37.0) g/dL RDW (11.5-15.5) % Plt Count (150-450) k/uL Neutrophils % % Lymphocytes % % Monocytes % % Eosinophils % % Basophils % % Neutrophils # (1.3-7.7) k/uL Lymphocytes # (1.0-4.8) k/uL Monocytes # (0-1.0) k/uL Eosinophils # (0-0.7) k/uL Basophils # (0-0.2) k/uL PT 11.2 (9.0-12.0) sec INR 1.1 (<1.1) APTT 22.2 (22.0-30.0) sec Sodium (137-145) mmol/L Potassium (3.5-5.1) mmol/L Chloride (98-107) mmol/L Carbon Dioxide (22-30) mmol/L Anion Gap mmol/L BUN (7-17) mg/dL Creatinine (0.52-1.04) mg/dL Est GFR (MDRD) Af Amer (>60 ml/min/1.73 sqM) Est GFR (MDRD) Non-Af (>60 ml/min/1.73 sqM) Glucose (74-99) mg/dL Calcium (8.4-10.2) mg/dL Magnesium (1.6-2.3) mg/dL Total Bilirubin (0.2-1.3) mg/dL AST (14-36) U/L ALT (9-52) U/L Alkaline Phosphatase (38-126) U/L Total Creatine Kinase (30-135) U/L CK-MB (CK-2) (0.0-2.4) ng/mL CK-MB (CK-2) Rel Index Troponin I (0.000-0.034) ng/mL Total Protein (6.3-8.2) g/dL Albumin (3.5-5.0) g/dL Critical Care Time Critical Care Time: Yes Total Critical Care Time: 35 Disposition Clinical Impression: Unstable angina Disposition: ADMITTED IP TO THIS [facility] Time of Disposition: 10:14
[2016-10-22] MEDS ORDERED: amLODIPine 5 MG TAB PO STA (08:39)
[2016-10-22 08:51] LABS: Basophils # (A) 0.1 k/uL (0-0.2); Basophils % (A) 1 %; CH 30.7; Eosinophils # (A) 0.2 k/uL (0-0.7); Eosinophils % (A) 4 %; HCT 46.2 % (34.0-46.0); HDW 2.31; Luc # (Auto) 0.09; Luc % (Auto) 1; Lymphocytes # (A) 1.6 k/uL (1.0-4.8); Lymphocytes % (A) 26 %; MCH 30.3 pg (25.0-35.0); MCHC 32.3 g/dL (31.0-37.0); MCV 93.7 fL (80.0-100.0); Mean Platelet Volume 7.6; Monocytes # (A) 0.4 k/uL (0-1.0); Monocytes % (A) 6 %; Neutrophils # (A) 3.8 k/uL (1.3-7.7); Neutrophils % (A) 62 %; RBC 4.94 m/uL (3.80-5.40); WBC 6.2 k/uL (3.8-10.6); WBC (Perox) 6.19
[2016-10-22 09:02] LABS: ALT 21 U/L (9-52); AST 27 U/L (14-36); Alkaline Phosphatase 100 U/L (38-126); Anion Gap 10 mmol/L; Blood Urea Nitrogen 15 mg/dL (7-17); Calcium 9.5 mg/dL (8.4-10.2); Carbon Dioxide 26 mmol/L (22-30); Chloride 105 mmol/L (98-107); Glucose 97 mg/dL (74-99); Magnesium 2.1 mg/dL (1.6-2.3); Non-African American GFR(MDRD) >60 (>60 ml/min/1.73 sqM); Sodium 141 mmol/L (137-145); Total Bilirubin 0.8 mg/dL (0.2-1.3); Total Protein 6.7 g/dL (6.3-8.2)
[2016-10-22 09:07] LABS: Potassium 5.6 mmol/L (3.5-5.1)
[2016-10-22 09:16] LABS: Creatine Kinase <20 U/L (30-135)
[2016-10-22 09:18] LABS: INR 1.1 (<1.1); Partial Thromboplastin Time 22.2 sec (22.0-30.0); Prothrombin Time 11.2 sec (9.0-12.0)
[2016-10-22 09:29] LABS: Creatine Kinase MB 0.4 ng/mL (0.0-2.4); Troponin I <0.012 ng/mL (0.000-0.034)
--- NOTE | 2016-10-22 09:59 | XR ---
EXAMINATION TYPE: XR chest 2V DATE OF EXAM: 10/22/2016 9:08 AM COMPARISON: Prior chest x-ray 14 October 2016 HISTORY: Chest pain TECHNIQUE: Frontal and lateral views of the chest are obtained. FINDINGS: Prominent lung volumes are again noted compatible with emphysema. Aortic stent graft alexis e present in the abdomen. The aorta is dense. Degenerative disc changes in the visualized spine. No a irspace disease, pneumothorax, or pleural effusion. Patient is rotated, there may be scoliotic curvat ure. Cardiomediastinal silhouette, pulmonary vascularity and roberto are stable. There are overlying car diac leads. IMPRESSION: No acute cardiopulmonary process.
[2016-10-22] MEDS ORDERED: HEPARIN SODIUM,PORCINE 5,000 UNIT/ML 1 ML VIAL IV ONE (10:12)
[2016-10-22] MEDS ORDERED: NITROGLYCERIN SL TABS 0.4 MG TAB SUBLINGUAL PRN (10:14)
[2016-10-22] MEDS ORDERED: HEPARIN SODIUM,PORCINE/D5W PMX 25,000 UNIT in DEXTROSE/WATER 1 500ML.BAG IV SCH (10:15)
[2016-10-22] MEDS: NITROGLYCERIN OINT 1 INCH/GM PACKET TOPICAL SCH ×2 (12:44→18:56)
[2016-10-22] MEDS ORDERED: MORPHINE SULFATE 2 MG/ML SYRINGE IVP PRN (14:32)
[2016-10-22 16:09] LABS: Creatine Kinase <20 U/L (30-135)
[2016-10-22 16:23] LABS: Creatine Kinase MB 0.4 ng/mL (0.0-2.4); Troponin I <0.012 ng/mL (0.000-0.034)
[2016-10-22 20:01] LABS: Creatine Kinase 21 U/L (30-135)
[2016-10-22 20:14] LABS: Creatine Kinase MB 0.4 ng/mL (0.0-2.4); Troponin I <0.012 ng/mL (0.000-0.034)
[2016-10-22] MEDS ORDERED: HEPARIN SODIUM,PORCINE 5,000 UNIT/ML 1 ML VIAL IV PRN (20:21)
[2016-10-22] MEDS ORDERED: methylPREDNISolone SOD SUCCI 125 MG/2 ML VIAL IV STA (20:30)
--- NOTE | 2016-10-22 20:30 | P.HPIM ---
History of Present Illness H&P Date: 10/22/16 Chief Complaint: cp 86 yr old with history of Multiple cancers who was recently seen on our service for chest pain comes back into the hospital with complaints of chest pain, Pt was hypoxic on a previous admission, CTA was negative. Pt does have a history of PE . Pt was noted to have atypical chest pain, which was mostly pleuritc in nature, echocardiogram was done, which didnot reveal any wall motion abnormalities, pt was discharged to be setup with an outpatient stress test bi. However pt was having recurring episodes of chest pain, that was worse and hence came into the hospital . Chest pain is left sided, exacerbated by arm movement, and deep breathing, denies any cough, fevers, chills, nausea, vomiting. No radiating features are described. Review of Systems All systems: negative (noted in hpi) Past Medical History Past Medical History: Cancer, Hearing Disorder / Deafness, Hyperlipidemia, Hypertension, Pulmonary Embolus (PE) Additional Past Medical History / Comment(s): cervical ca, lymphoma, bilateral breast cancer, skin cancer, STOMACH CANCER, HX HEPATITIS A CHILD, VERTIgO, AAA(UNK SIZE), UTI, EATS SMALL FREQ MEALS D/T HAVING 2/3 STOMACH REMOVED. History of Any Multi-Drug Resistant Organisms: None Reported Past Surgical History: Hysterectomy Additional Past Surgical History / Comment(s): 2/3 stomach removed, bilateral masectomy, skin cancer removal, ETHAN CATARACTS Past Anesthesia/Blood Transfusion Reactions: Motion Sickness Additional Past Anesthesia/Blood Transfusion Reaction / Comment(s): VERTIGO Past Psychological History: No Psychological Hx Reported Additional Psychological History / Comment(s): PT LIVES IN OWN HOME WITH 1 CAT.PT STATED GETS AROUND WITHOUT A CANE OR WALKER.STILL DRIVES, HAS PERSON COME IN TO CLEAN HOUSE EVERY OTHER WEEK. 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 Smoking Status: Former smoker Past Alcohol Use History: Daily Additional Past Alcohol Use History / Comment(s): STARTED SMOKING AT AGE 22 QUIT , ENJOYS 1 GLASS OF WINE A NIGHT Past Drug Use History: None Reported - Past Family History Mother Family Medical History: CVA/TIA Additional Family Medical History / Comment(s): AGE 94 IN HER SLEEP. Father Family Medical History: Myocardial Infarction ([place]) Additional Family Medical History / Comment(s): FROM [place] AGE 55 Medications and Allergies Home Medications Medication Instructions Recorded Confirmed Type Atorvastatin [Lipitor] 20 mg PO DAILY 10/02/16 10/22/16 History amLODIPine [Norvasc] 5 mg PO DAILY 10/02/16 10/22/16 History Allergies Allergy/AdvReac Type Severity Reaction Status Date / Time No Known Allergies Allergy Verified 10/22/16 08:36 Physical Exam Vitals: Vital Signs Temp Pulse Pulse Resp BP BP Pulse Ox 10/22/16 16:00 65 18 10/22/16 15:00 98.3 F 65 18 158/74 97 10/22/16 14:25 98.2 F 65 16 158/88 98 10/22/16 12:47 98.4 F 80 16 146/88 97 10/22/16 11:44 80 17 146/88 93 L Intake and Output 10/22/16 10/22/16 10/22/16 06:59 14:59 22:59 Other: Voiding Method Toilet Gen; alert oriented times 3, in no distress Lungs CTA b/l, no rhonchi, wheezing, or crackles HEart RRR< no murmurs appreciated. Abdomen soft non tender no organomegaly. Musculoskeletal. Left arm movement pain is reproducible on the left chest Neuro cranial nerves intact, no focal motor or sensory deficits noted. Lower extremities no edema noted. Results CBC & Chem 7: 10/22/16 08:30 10/22/16 08:30 Labs: Abnormal Lab Results - Last 24 Hours (Table) 10/22/16 10/22/16 Range/Units 15:23 19:14 Total Creatine Kinase <20 L 21 L (30-135) U/L Thrombosis Risk Factor Assmnt - Choose All That Apply Any of the Below Risk Factors Present?: Yes Other Risk Factors: Yes Each Risk Factor Represents 2 Points: Malignancy Each Risk Factor Represents 3 Points: Age 75 years or older Other congenital or acquired thrombophilia - If yes, enter type in comment: No Thrombosis Risk Factor Assessment Total Risk Factor Score: 5 Thrombosis Risk Factor Assessment Level: High Risk Assessment and Plan Plan: 1. Atypical chest pain 2. Hyperkalemia 3. Multiple cancers, Breast ca, Maltoma, skin cancer, Cervical ca. 4. HTN 5. COPD 6. h/o of PE, ruled out on a recent admission Plan Consult cardiology will need a stress test. Pain appears atypical and pleuritc/musculoskeletal. WIll give a dose of solumedrol for pleurisy. DVT prophylaxis.
[2016-10-23] MEDS: NITROGLYCERIN OINT 1 INCH/GM PACKET TOPICAL SCH ×3 (01:27→13:41)
[2016-10-23 03:24] LABS: Cholesterol 143 mg/dL (<200); HDL Cholesterol 86 mg/dL (40-60); Triglycerides 46 mg/dL (<150)
[2016-10-23] MEDS ORDERED: ATORVASTATIN 20 MG TAB PO SCH (09:00)
[2016-10-23] MEDS ORDERED: ASPIRIN 325 MG TAB PO SCH (09:00)
[2016-10-23] MEDS ORDERED: amLODIPine 5 MG TAB PO SCH (09:00)
[2016-10-23 16:15] VITALS: BP 153/93; PULSE 78; RESP 16; TEMP 98.6
--- NOTE | 2016-10-23 17:27 | P.DS ---
Providers Date of admission: 10/22/16 10:15 Attending physician: Soco Marvin Primary care physician: Abdoulaye [facility] Course: Chief Complaint: cp 86 yr old with history of Multiple cancers who was recently seen on our service for chest pain comes back into the hospital with complaints of chest pain, Pt was hypoxic on a previous admission, CTA was negative. Pt does have a history of PE . Pt was noted to have atypical chest pain, which was mostly pleuritc in nature, echocardiogram was done, which didnot reveal any wall motion abnormalities, pt was discharged to be setup with an outpatient stress test bi. However pt was having recurring episodes of chest pain, that was worse and hence came into the hospital . Chest pain is left sided, exacerbated by arm movement, and deep breathing, denies any cough, fevers, chills, nausea, vomiting. No radiating features are described. Gen; alert oriented times 3, in no distress Lungs CTA b/l, no rhonchi, wheezing, or crackles HEart RRR< no murmurs appreciated. Abdomen soft non tender no organomegaly. Musculoskeletal. Left arm movement pain is reproducible on the left chest Neuro cranial nerves intact, no focal motor or sensory deficits noted. Lower extremities no edema. Assessment and Plan Plan: 1. Atypical chest pain 2. Hyperkalemia 3. Multiple cancers, Breast ca, Maltoma, skin cancer, Cervical ca. 4. HTN 5. COPD 6. h/o of PE, ruled out on a recent admission No further workup is needed. Patient can follow up with Dr. Ortiz for outpatient stress test sometime next week. Patient's pain was purely pleuritic improved with steroids. Patient is symptom-free. ACS was ruled out. Plan - Discharge Summary Discharge Medication List Atorvastatin [Lipitor] 20 mg PO DAILY 10/02/16 [History] amLODIPine [Norvasc] 5 mg PO DAILY 10/02/16 [History] Follow up Appointment(s)/Referral(s): Abdoulaye Dunbar MD [Primary Care Provider] - 1-2 days Jimy Ortiz MD [STAFF PHYSICIAN] - 10/30/16 3:15 pm (WedOct 30 at 3: 15 pm)
--- NOTE | 2016-10-24 18:25 | CONS ---
DATE OF CONSULTATION: 10/23/2016 86-year-old female who presents with chest discomfort on the left side, which is pleuritic in nature and she has prolonged episode of chest discomfort, cardiac enzymes x3 have been normal. Potassium is 5.6 She is 86-year-old female who has had recurrent chest discomfort which is pleuritic in nature and 2-D echocardiogram did not show any pericardial effusion. Did not show any wall motion abnormalities. Past history of cancer, dyslipidemia and hypertension. PAST SURGICAL HISTORY: Hysterectomy. SOCIAL HISTORY: She quit smoking in 1989. She drinks a glass of the night every night. On examination she is afebrile. Pulse rate is in the 60s. Blood pressure is 146/88 eighths millimeters of Hg. Head and neck examination is normal. Heart sounds S1, and S2 are soft. No murmurs or gallops. Breath sounds are reduced bilaterally. IMPRESSION: 1. Pleuritic chest discomfort. 2. Hyperkalemia. 3. Hypertension. 4. Chronic obstructive pulmonary disease. From a cardiac standpoint, I do not see any indication for stress testing at this point. 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 Management of hyperkalemia per primary team.
== END 2016-10-23 18:04 | disposition home or self-care (01) ==
LOC: EC 07:59 → 3OBS 10:15
PROVIDERS: ADMIT Hospitalist; ATTEND Hospitalist
DX: R07.89 Other chest pain (principal); E87.5 Hyperkalemia; I10 Essential (primary) hypertension; J44.9 Chronic obstructive pulmonary disease, unspecified; Z87.891 Personal history of nicotine dependence; R09.1 Pleurisy; Z79.899 Other long term (current) drug therapy; Z82.49 Family history of ischemic heart disease and other diseases of the circulatory system; Z85.028 Personal history of other malignant neoplasm of stomach; Z85.3 Personal history of malignant neoplasm of breast; Z85.41 Personal history of malignant neoplasm of cervix uteri; Z85.72 Personal history of non-Hodgkin lymphomas; Z86.711 Personal history of pulmonary embolism; Z90.3 Acquired absence of stomach [part of]
CPT/HCPCS: 99291; 96365; 96366; 96375; 96376; 93005 ×3; 36415; 80061; 80053; 82550; 82553; 83735; 84484; 85025; 85610; 85730 ×2; 71020; G0378 ×2; J1644 ×2; J2930; J2270

== ENCOUNTER 2017-05-22 11:32 | Observation (INO) | payer MEDICARE ==
[2017-05-22] MEDS ORDERED: SODIUM CHLORIDE 0.9% 500 ML IV STA (11:59)
--- NOTE | 2017-05-22 12:06 | ED ---
General Adult HPI - General Chief complaint: Dizziness Stated complaint: vertigo Time Seen by Provider: 05/22/17 11:42 Source: patient, family, EMS, RN notes reviewed Mode of arrival: EMS Limitations: no limitations - History of Present Illness Initial comments: 86 female presenting for evaluation of bilateral upper extremity tingling primarily in the hands. Patient was in her normal state of health yesterday with no complaints. This morning she developed symptoms per chills also complaining of some generalized weakness and fatigue. Denies any focal weakness. Denies headache. Denies fever or chills. Denies abdominal pain. Denies chest pain. Has noted some shortness of breath but this is chronic in nature, no changes. No cough. Patient does report having decreased by mouth intake over the last 3 days. There is no nausea vomiting or diarrhea. She has past medical history of multiple cancers including rest cancer, GI cancer, and skin cancer. She is not currently on any treatment for these. She also has a history of abdominal aortic aneurysm status post repair. - Related Data Home Medications Medication Instructions Recorded Confirmed Atorvastatin [Lipitor] 20 mg PO DAILY 10/02/16 05/22/17 amLODIPine [Norvasc] 5 mg PO DAILY 10/02/16 05/22/17 Budesonide-Formot 160-4.5 Mcg 1 puff INHALATION RT-BID 05/22/17 05/22/17 [Symbicort 160-4.5 Mcg Inhaler] Allergies Allergy/AdvReac Type Severity Reaction Status Date / Time No Known Allergies Allergy Verified 05/22/17 12:57 Review of Systems ROS Statement: Those systems with pertinent positive or pertinent negative responses have been documented in the HPI. ROS Other: All systems not noted in ROS Statement are negative. Past Medical History Past Medical History: Cancer, Hearing Disorder / Deafness, Hyperlipidemia, Hypertension, Pulmonary Embolus (PE) Additional Past Medical History / Comment(s): cervical ca, lymphoma, bilateral breast cancer, skin cancer, STOMACH CANCER, HX HEPATITIS A CHILD, VERTIgO, AAA(UNK SIZE), UTI, EATS SMALL FREQ MEALS D/T HAVING 2/3 STOMACH REMOVED. History of Any Multi-Drug Resistant Organisms: None Reported Past Surgical History: Hysterectomy Additional Past Surgical History / Comment(s): 2/3 stomach removed, bilateral masectomy, skin cancer removal, ETHAN CATARACTS Past Anesthesia/Blood Transfusion Reactions: Motion Sickness Additional Past Anesthesia/Blood Transfusion Reaction / Comment(s): VERTIGO Past Psychological History: No Psychological Hx Reported Smoking Status: Former smoker Past Alcohol Use History: Daily Past Drug Use History: None Reported - Past Family History Mother Family Medical History: CVA/TIA Additional Family Medical History / Comment(s): AGE 94 IN HER SLEEP. Father Family Medical History: Myocardial Infarction ([place]) Additional Family Medical History / Comment(s): FROM [place] AGE 55 General Exam Limitations: no limitations General appearance: alert, in no apparent distress Head exam: Present: atraumatic, normocephalic Eye exam: Present: normal appearance, PERRL, EOMI. Absent: scleral icterus, conjunctival injection ENT exam: Present: mucous membranes dry Neck exam: Present: normal inspection. Absent: tenderness, meningismus Respiratory exam: Present: normal lung sounds bilaterally. Absent: respiratory distress, wheezes, rales Cardiovascular Exam: Present: regular rate, normal rhythm GI/Abdominal exam: Present: soft. Absent: distended, tenderness, guarding Extremities exam: Present: normal inspection, full ROM, normal capillary refill , other (Bilateral femoral pulses 2+). Absent: pedal edema, calf tenderness Back exam: Present: normal inspection, full ROM, other (Kyphosis). Absent: tenderness Neurological exam: Present: alert, oriented X3, CN II-XII intact. Absent: motor sensory deficit Psychiatric exam: Present: normal affect, normal mood Skin exam: Present: warm, dry. Absent: cyanosis, diaphoretic Course Vital Signs 05/22/17 11:35 Temperature 97.8 F Pulse Rate 77 Respiratory 20 Rate Blood Pressure 162/74 O2 Sat by Pulse 92 L Oximetry EKG Findings - EKG Comments: EKG Findings:: EKG shows normal sinus rhythm with sinus arrhythmia, ventricular rate of 60,. 188, QRS duration 82, QTC 42, no signs of ischemia Medical Decision Making - Medical Decision Making 86-year-old female coming in with generalized weakness and bilateral hand tingling. Patient does report decreased intake over the past 3 days. There is no neck pain or focal neurological deficits on examination. No sensory changes. Laboratory studies reveal hemoglobin stable at 14.8, white blood cell count 6.0, there is mild lactic acidosis consistent with dehydration at 2.8. Urinalysis does show 21 white blood cells with large leukocyte esterase. Urine culture is obtained. Patient is given a dose of ceftriaxone emergency department. She does appear dehydrated on examination. She will be given normal saline and placed in observation for reevaluation and down trending lactic acid. Case is discussed with internal medicine patient will be admitted to . Diagnosis: Dehydration, UTI, lactic acidosis - Lab Data Result diagrams: 05/22/17 12:18 05/22/17 12:18 Lab Results 05/22/17 05/22/17 05/22/17 Range/Units 12:18 12:18 12:18 WBC 6.0 (3.8-10.6) k/uL RBC 4.67 (3.80-5.40) m/uL Hgb 14.8 (11.4-16.0) gm/dL Hct 46.7 H (34.0-46.0) % MCV 100.0 (80.0-100.0) fL MCH 31.6 (25.0-35.0) pg MCHC 31.6 (31.0-37.0) g/dL RDW 14.3 (11.5-15.5) % Plt Count 232 (150-450) k/uL Neutrophils % 69 % Lymphocytes % 22 % Monocytes % 5 % Eosinophils % 1 % Basophils % 1 % Neutrophils # 4.2 (1.3-7.7) k/uL Lymphocytes # 1.4 (1.0-4.8) k/uL Monocytes # 0.3 (0-1.0) k/uL Eosinophils # 0.1 (0-0.7) k/uL Basophils # 0.0 (0-0.2) k/uL PT (9.0-12.0) sec INR (<1.2) VBG pH (7.31-7.41) VBG pCO2 (37-51) mmHg VBG HCO3 (24-28) mmol/L Sodium 141 (137-145) mmol/L Potassium 3.8 (3.5-5.1) mmol/L Chloride 106 (98-107) mmol/L Carbon Dioxide 24 (22-30) mmol/L Anion Gap 11 mmol/L BUN 17 (7-17) mg/dL Creatinine 0.88 (0.52-1.04) mg/dL Est GFR (MDRD) Af Amer >60 (>60 ml/min/1.73 sqM) Est GFR (MDRD) Non-Af >60 (>60 ml/min/1.73 sqM) Glucose 120 H (74-99) mg/dL Plasma Lactic Acid Roland 2.8 H* (0.7-2.0) mmol/L Calcium 9.2 (8.4-10.2) mg/dL Magnesium 1.9 (1.6-2.3) mg/dL Total Bilirubin 0.5 (0.2-1.3) mg/dL AST 21 (14-36) U/L ALT 19 (9-52) U/L Alkaline Phosphatase 70 (38-126) U/L Troponin I (0.000-0.034) ng/mL Total Protein 6.0 L (6.3-8.2) g/dL Albumin 3.6 (3.5-5.0) g/dL Urine Color Urine Appearance (Clear) Urine pH (5.0-8.0) Ur Specific [place] (1.001-1.035) Urine Protein (Negative) Urine Glucose (UA) (Negative) Urine Ketones (Negative) Urine Blood (Negative) Urine Nitrite (Negative) Urine Bilirubin (Negative) Urine Urobilinogen (<2.0) mg/dL Ur Leukocyte Esterase (Negative) Urine RBC (0-5) /hpf Urine WBC (0-5) /hpf Ur Squamous Epith Cells (0-4) /hpf Urine Bacteria (None) /hpf Urine Mucus (None) /hpf 05/22/17 05/22/17 05/22/17 Range/Units 12:18 12:18 12:18 WBC (3.8-10.6) k/uL RBC (3.80-5.40) m/uL Hgb (11.4-16.0) gm/dL Hct (34.0-46.0) % MCV (80.0-100.0) fL MCH (25.0-35.0) pg MCHC (31.0-37.0) g/dL RDW (11.5-15.5) % Plt Count (150-450) k/uL Neutrophils % % Lymphocytes % % Monocytes % % Eosinophils % % Basophils % % Neutrophils # (1.3-7.7) k/uL Lymphocytes # (1.0-4.8) k/uL Monocytes # (0-1.0) k/uL Eosinophils # (0-0.7) k/uL Basophils # (0-0.2) k/uL PT 10.7 (9.0-12.0) sec INR 1.1 (<1.2) VBG pH 7.37 (7.31-7.41) VBG pCO2 42 (37-51) mmHg VBG HCO3 23 L (24-28) mmol/L Sodium (137-145) mmol/L Potassium (3.5-5.1) mmol/L Chloride (98-107) mmol/L Carbon Dioxide (22-30) mmol/L Anion Gap mmol/L BUN (7-17) mg/dL Creatinine (0.52-1.04) mg/dL Est GFR (MDRD) Af Amer (>60 ml/min/1.73 sqM) Est GFR (MDRD) Non-Af (>60 ml/min/1.73 sqM) Glucose (74-99) mg/dL Plasma Lactic Acid Roland (0.7-2.0) mmol/L Calcium (8.4-10.2) mg/dL Magnesium (1.6-2.3) mg/dL Total Bilirubin (0.2-1.3) mg/dL AST (14-36) U/L ALT (9-52) U/L Alkaline Phosphatase (38-126) U/L Troponin I <0.012 (0.000-0.034) ng/mL Total Protein (6.3-8.2) g/dL Albumin (3.5-5.0) g/dL Urine Color Urine Appearance (Clear) Urine pH (5.0-8.0) Ur Specific [place] (1.001-1.035) Urine Protein (Negative) Urine Glucose (UA) (Negative) Urine Ketones (Negative) Urine Blood (Negative) Urine Nitrite (Negative) Urine Bilirubin (Negative) Urine Urobilinogen (<2.0) mg/dL Ur Leukocyte Esterase (Negative) Urine RBC (0-5) /hpf Urine WBC (0-5) /hpf Ur Squamous Epith Cells (0-4) /hpf Urine Bacteria (None) /hpf Urine Mucus (None) /hpf 05/22/17 Range/Units 13:52 WBC (3.8-10.6) k/uL RBC (3.80-5.40) m/uL Hgb (11.4-16.0) gm/dL Hct (34.0-46.0) % MCV (80.0-100.0) fL MCH (25.0-35.0) pg MCHC (31.0-37.0) g/dL RDW (11.5-15.5) % Plt Count (150-450) k/uL Neutrophils % % Lymphocytes % % Monocytes % % Eosinophils % % Basophils % % Neutrophils # (1.3-7.7) k/uL Lymphocytes # (1.0-4.8) k/uL Monocytes # (0-1.0) k/uL Eosinophils # (0-0.7) k/uL Basophils # (0-0.2) k/uL PT (9.0-12.0) sec INR (<1.2) VBG pH (7.31-7.41) VBG pCO2 (37-51) mmHg VBG HCO3 (24-28) mmol/L Sodium (137-145) mmol/L Potassium (3.5-5.1) mmol/L Chloride (98-107) mmol/L Carbon Dioxide (22-30) mmol/L Anion Gap mmol/L BUN (7-17) mg/dL Creatinine (0.52-1.04) mg/dL Est GFR (MDRD) Af Amer (>60 ml/min/1.73 sqM) Est GFR (MDRD) Non-Af (>60 ml/min/1.73 sqM) Glucose (74-99) mg/dL Plasma Lactic Acid Roland (0.7-2.0) mmol/L Calcium (8.4-10.2) mg/dL Magnesium (1.6-2.3) mg/dL Total Bilirubin (0.2-1.3) mg/dL AST (14-36) U/L ALT (9-52) U/L Alkaline Phosphatase (38-126) U/L Troponin I (0.000-0.034) ng/mL Total Protein (6.3-8.2) g/dL Albumin (3.5-5.0) g/dL Urine Color Yellow Urine Appearance Cloudy H (Clear) Urine pH 6.0 (5.0-8.0) Ur Specific [place] 1.012 (1.001-1.035) Urine Protein Negative (Negative) Urine Glucose (UA) Negative (Negative) Urine Ketones Negative (Negative) Urine Blood Negative (Negative) Urine Nitrite Negative (Negative) Urine Bilirubin Negative (Negative) Urine Urobilinogen <2.0 (<2.0) mg/dL Ur Leukocyte Esterase Large H (Negative) Urine RBC 3 (0-5) /hpf Urine WBC 21 H (0-5) /hpf Ur Squamous Epith Cells 7 H (0-4) /hpf Urine Bacteria Occasional H (None) /hpf Urine Mucus Rare H (None) /hpf Disposition Clinical Impression: Dehydration, Urinary tract infection, Lactic acidosis Disposition: ADMITTED IP TO THIS [facility] Condition: Stable Referrals: None,Stated [Primary Care Provider] - 1-2 days Decision to Admit Reason: Admit from EC Decision Date: 05/22/17 Decision Time: 13:30
[2017-05-22 12:34] LABS: Basophils % (A) 1 %; CH 32.2; CHCM 32.4; Eosinophils # (A) 0.1 k/uL (0-0.7); Eosinophils % (A) 1 %; HCT 46.7 % (34.0-46.0); HDW 2.17; HGB 14.8 gm/dL (11.4-16.0); Luc # (Auto) 0.08; Luc % (Auto) 1; Lymphocytes # (A) 1.4 k/uL (1.0-4.8); Lymphocytes % (A) 22 %; MCH 31.6 pg (25.0-35.0); MCHC 31.6 g/dL (31.0-37.0); Mean Platelet Volume 7.6; Monocytes # (A) 0.3 k/uL (0-1.0); Monocytes % (A) 5 %; Neutrophils # (A) 4.2 k/uL (1.3-7.7); Neutrophils % (A) 69 %; RBC 4.67 m/uL (3.80-5.40); RDW 14.3 % (11.5-15.5); WBC (Perox) 5.85
[2017-05-22 12:37] LABS: VBG PH 7.37 (7.31-7.41)
[2017-05-22 12:44] LABS: INR 1.1 (<1.2); Prothrombin Time 10.7 sec (9.0-12.0)
--- NOTE | 2017-05-22 12:49 | XR ---
EXAMINATION TYPE: XR chest 2V DATE OF EXAM: 05/22/2017 COMPARISON: 10/22/2016 INDICATION: Near syncope TECHNIQUE: Frontal and lateral views of the chest are obtained. FINDINGS: The heart size is normal. The pulmonary vasculature is normal. There is hyperinflation with increased retrosternal airspace and increased AP diameter compatible wit h emphysematous changes. Note is made of a stent within the aorta. No acute infiltrates are evident. Lung beck[place] are clear. EKG leads overlie the chest. No significant interval changes evident.. IMPRESSION: 1. COPD.
[2017-05-22 12:55] LABS: ALT 19 U/L (9-52); AST 21 U/L (14-36); Alkaline Phosphatase 70 U/L (38-126); Anion Gap 11 mmol/L; Blood Urea Nitrogen 17 mg/dL (7-17); Calcium 9.2 mg/dL (8.4-10.2); Carbon Dioxide 24 mmol/L (22-30); Chloride 106 mmol/L (98-107); Glucose 120 mg/dL (74-99); Magnesium 1.9 mg/dL (1.6-2.3); Non-African American GFR(MDRD) >60 (>60 ml/min/1.73 sqM); Potassium 3.8 mmol/L (3.5-5.1); Sodium 141 mmol/L (137-145); Total Bilirubin 0.5 mg/dL (0.2-1.3)
[2017-05-22] MEDS ORDERED: SODIUM CHLORIDE 0.9% 500 ML IV ONE (13:39)
[2017-05-22] MEDS: SODIUM CHLORIDE 0.9% 1,000 ML IV SCH (13:55)
[2017-05-22 14:08] LABS: Appearance,Urine Cloudy (Clear); Bacteria,Urine Occasional /hpf; Bilirubin,Urine Negative (Negative); Glucose,Urine (UA) Negative (Negative); Ketones,Urine Negative (Negative); Leukocyte Esterase,Urine Large (Negative); Mucus,Urine Rare /hpf; Nitrite,Urine Negative (Negative); Particle Count 13331; Protein,Urine Negative (Negative); RBC,Urine 3 /hpf (0-5); Specific Gravity,Urine 1.012 (1.001-1.035); Squamous Epithelial Cell,Urine 7 /hpf (0-4); UA Billing (MACRO vs. MICRO) MICRO; Urobilinogen,Urine <2.0 mg/dL (<2.0); WBC,Urine 21 /hpf (0-5)
[2017-05-22] MEDS ORDERED: NALOXONE 0.4 MG/ML 1 ML VIAL IV PRN (14:15)
[2017-05-22] MEDS ORDERED: ACETAMINOPHEN TAB 325 MG TAB PO PRN (14:21)
[2017-05-22] MEDS ORDERED: RX INFO: IV CONTRAST WAS GIVEN 1 EACH MISC MISCELLANE PRN (16:04)
[2017-05-22] MEDS ORDERED: HYDROcodone/APAP 5-325MG 1 EACH TAB PO PRN (16:14)
[2017-05-22] MEDS ORDERED: ONDANSETRON 4 MG/2 ML VIAL IVP PRN (16:14)
--- NOTE | 2017-05-22 16:19 | P.HPIM ---
History of Present Illness H&P Date: 05/22/17 Chief Complaint: bilateral arm numbness Patient is an 86-year-old female with past medical history of hypertension, dyslipidemia, COPD, and multiple cancers who presented with complaints of bilateral upper extremity numbness. She's had chronic intermittent right hand numbness she thought was secondary to an old fracture. Today she spelled it felt different and both upper extremities were annulment. Her left upper extremity numbness has since resolved, but her right upper extremity numbness is persistent. She reports that this is associated with feeling dizzy, slightly short of breath today. She denies any chest pain, nausea, vomiting, and dysuria. She lives alone. She does also have a history of numbness in her right lower extremity that has been chronic in nature and she was told this is from a pinched nerve in her back. She denies any recent changes in medication. Her only physician that she chronically sees is Dr. Dunbar. In the emergency department she had an elevated lactic acid. She's given IV fluids and a dose of Rocephin for probable UTI. She is admitted for further monitoring and care. Review of Systems General: no fever/chills, no rigors, no weight loss/weight gain, poor appetite her daughter Eyes: No double vision, no unusual blurry vision, no loss of vision ENT: No rhinorrhea, congestion, no trush Cardiovascular: Sinus dizziness, No chest pain, no palpitations, no syncope, no edema, Noo paroxysmal nocturnal dyspnea, No dizziness Pulmonary: + shortness of breath, no wheezing, no cough, hemoptysis Abdominal: No abdominal pain, no constipation, no diarrhea, no vomiting, no nausea, no distention Genitourinary: No dysuria, no urinary frequency, no hematuria, no unusual discharge/odor Neuro: Bilateral upper extremity numbness and intermittent right lower extremity numbness, no unusual paresis/paralysis, no headache Dermatologic: No unusual rashes, no unusual lesions, no unusual changes in nails Endocrinology: No intolerance to heat/cold, no excessive thirst,] no unusual fatigue Hematologic: No unusual bruising or bleeding, no unusual cervical lymphadenopathy Psychiatric: No changes in mood or behaviors, no changes in sleep pattern Past Medical History Past Medical History: Cancer, COPD, Hearing Disorder / Deafness, Hyperlipidemia , Hypertension, Pulmonary Embolus (PE) Additional Past Medical History / Comment(s): cervical ca, lymphoma, bilateral breast cancer, skin cancer, STOMACH CANCER, HX HEPATITIS A CHILD, VERTIgO, AAA(UNK SIZE), UTI, EATS SMALL FREQ MEALS D/T HAVING 2/3 STOMACH REMOVED. AORTIC ANEURYSM WITH AORTIC STENT, Arhtritis History of Any Multi-Drug Resistant Organisms: None Reported Past Surgical History: Hysterectomy Additional Past Surgical History / Comment(s): 2/3 stomach removed, bilateral masectomy, skin cancer removal, ETHAN CATARACTS, trigger finger left hand, stent to AAA Past Anesthesia/Blood Transfusion Reactions: Motion Sickness Additional Past Anesthesia/Blood Transfusion Reaction / Comment(s): VERTIGO Past Psychological History: No Psychological Hx Reported Additional Psychological History / Comment(s): PT LIVES IN OWN HOME WITH 1 CAT.PT STATED GETS AROUND WITHOUT A CANE OR WALKER.STILL DRIVES, HAS PERSON COME IN TO CLEAN HOUSE EVERY OTHER WEEK. 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 Smoking Status: Former smoker Past Alcohol Use History: Daily Additional Past Alcohol Use History / Comment(s): STARTED SMOKING AT AGE 22 QUIT , ENJOYS 1 GLASS OF WINE A NIGHT Past Drug Use History: None Reported - Past Family History Mother Family Medical History: CVA/TIA Additional Family Medical History / Comment(s): AGE 94 IN HER SLEEP. Father Family Medical History: Myocardial Infarction ([place]) Additional Family Medical History / Comment(s): FROM [place] AGE 55 Medications and Allergies Home Medications Medication Instructions Recorded Confirmed Type Atorvastatin [Lipitor] 20 mg PO DAILY 10/02/16 05/22/17 History amLODIPine [Norvasc] 5 mg PO DAILY 10/02/16 05/22/17 History Budesonide-Formot 160-4.5 Mcg 1 puff INHALATION RT-BID 05/22/17 05/22/17 History [Symbicort 160-4.5 Mcg Inhaler] Allergies Allergy/AdvReac Type Severity Reaction Status Date / Time No Known Allergies Allergy Verified 05/22/17 12:57 Physical Exam Osteopathic Statement: *. No significant issues noted on an osteopathic structural exam other than those noted in the History and Physical/Consult. Vitals: Vital Signs Temp Pulse Pulse Resp BP BP Pulse Ox 05/22/17 15:16 98.3 F 68 18 149/56 95 05/22/17 14:48 97.7 F 72 18 138/84 97 05/22/17 14:00 97.7 F 75 20 146/86 98 05/22/17 13:00 76 20 97 05/22/17 11:35 97.8 F 77 20 162/74 92 L Intake and Output 05/22/17 05/22/17 05/22/17 06:59 14:59 22:59 Other: Weight 50.802 kg 50.5 kg Patient Weight 05/23/17 06:59 Weight 50.5 kg General: non toxic, no distress, appears at stated age, normal weight Derm: no rashes, no lesions, no ulcers, no unusual ecchymoses Head: atraumatic, normocephalic, symmetric Eyes: EOMI, no lid lag, anicteric sclera, pupils equal round reactive to light ENT: no post nasal drip, no thrush , nearest patent, no pharyngeal erythema Neck: No thyromegaly, no cervical lymphadenopathy, trachea midline, supple Mouth: no lip lesion, mucus membranes moist Cardiovascular: S1S2 reg, no murmur, positive posterior tibial pulse bilateral, no edema , no JVD, no clubbing, no cyanosis, capillary refill less than 2 seconds Lungs: CTA bilateral, no rhonchi, no rales , no accessory muscle use Abdominal: soft, nontender to palpation, no guarding, no appreciable organomegaly, normal bowel sounds Ext: no gross muscle atrophy, muscle strength 5 out of 5 in all 4 extremities grossly, no contractures, multiple joints with arthritic changes Neuro: CN II-XI grossly intact, decreased feeling in right upper extremity, feeling intact all other extremities, finger to nose within normal limits, Psych: Alert, oriented, appropriate affect Results CBC & Chem 7: 05/22/17 12:18 05/22/17 12:18 Labs: Abnormal Lab Results - Last 24 Hours (Table) 05/22/17 05/22/17 05/22/17 Range/Units 12:18 12:18 12:18 Hct 46.7 H (34.0-46.0) % VBG HCO3 (24-28) mmol/L Glucose 120 H (74-99) mg/dL Plasma Lactic Acid Roland 2.8 H* (0.7-2.0) mmol/L Total Protein 6.0 L (6.3-8.2) g/dL Urine Appearance (Clear) Ur Leukocyte Esterase (Negative) Urine WBC (0-5) /hpf Ur Squamous Epith Cells (0-4) /hpf Urine Bacteria (None) /hpf Urine Mucus (None) /hpf 05/22/17 05/22/17 Range/Units 12:18 13:52 Hct (34.0-46.0) % VBG HCO3 23 L (24-28) mmol/L Glucose (74-99) mg/dL Plasma Lactic Acid Roland (0.7-2.0) mmol/L Total Protein (6.3-8.2) g/dL Urine Appearance Cloudy H (Clear) Ur Leukocyte Esterase Large H (Negative) Urine WBC 21 H (0-5) /hpf Ur Squamous Epith Cells 7 H (0-4) /hpf Urine Bacteria Occasional H (None) /hpf Urine Mucus Rare H (None) /hpf Thrombosis Risk Factor Assmnt - Choose All That Apply Any of the Below Risk Factors Present?: Yes Assessment and Plan Plan: #Bilateral upper extremity numbness- check CT cervical spine, check CT head to rule out possible metastatic disease with history of multiple cancers, may be related to arthritic changes continue to monitor #Dizziness-telemetry, IV fluids, precautions, consider echocardiogram however this cannot be performed on a Wednesday will need to determine if needs to be done inpatient or outpatient depending the rest of her workup #Dehydration with elevated lactic acid-IV fluids, repeat lactic acid, encourage oral intake # hypertension, controlled-continue home Norvasc, monitor blood pressures #Dyslipidemia-continue statin Surrogate decision-maker: Daughter Kinjal CODE STATUS: DNR DVT prophylaxis: early ambulation Discussed with: Patient, nursing, daughter Anticipated discharge: 24-[address]: Home A total of 45 minutes was spent on the care of this complex patient more than 50 % of the time was spent in counseling and care coordination.
--- NOTE | 2017-05-22 17:47 | CT ---
EXAMINATION TYPE: CT brain wo con DATE OF EXAM: 05/22/2017 COMPARISON: 12 September 2015 INDICATION: Arm numbness and weakness DLP: 1108.4 mGycm, Automated exposure control for dose reduction was used. CONTRAST: None CT of the brain is performed utilizing 3 mm thick sections through the posterior fossa and 3 mm thick sections through the remaining calvarium. Study is performed within 24 hours of arrival to the hosp ital. No abnormal hyperdensity is present to suggest an acute intracranial hemorrhage. No mass lesion is evident. No acute infarcts are evident. Periventricular white matter hypodensity is present, likely on the bas is of chronic white matter ischemic changes. This is progressive from 2015. Ventricles and sulci are prominent for the patient age. , Stable from prior Paranasal sinuses and mastoid air cells within the [id number] are clear. IMPRESSIONS: 1. Atrophy with progressive chronic appearing periventricular white matter ischemic type changes
--- NOTE | 2017-05-22 17:57 | CT ---
EXAMINATION TYPE: CT cervical spine w con DATE OF EXAM: 05/22/2017 COMPARISON: NONE HISTORY: Arm numbness and weakness CT DLP: 387.2 mGycm CONTRAST: Performed with IV Contrast, patient injected with 100 mL of Omnipaque 300. CT of the cervical spine is performed in the axial plane at 2 mm thick sections. Reconstructed image s in the coronal, and sagittal plane are reviewed on the computer. No acute fractures are evident. There is some exaggeration of cervical lordosis. Positional. Disc heights are preserved. Vertebral body heights are preserved. No spinal canal stenosis is evident No neural foraminal stenosis is evident. IMPRESSIONS: 1. Essentially unremarkable cervical spine.
[2017-05-22 19:19] VITALS: TEMP 97.9
[2017-05-22] MEDS: SYMBICORT 160-4.5 MCG INHALER INHALATION SCH (20:17)
[2017-05-23] MEDS: SODIUM CHLORIDE 0.9% 1,000 ML IV SCH (02:39)
[2017-05-23 05:07] VITALS: PULSE 65
[2017-05-23] MEDS: SYMBICORT 160-4.5 MCG INHALER INHALATION SCH (07:07)
[2017-05-23 07:54] LABS: Anion Gap 6 mmol/L; Blood Urea Nitrogen 10 mg/dL (7-17); Calcium 9.6 mg/dL (8.4-10.2); Carbon Dioxide 28 mmol/L (22-30); Chloride 106 mmol/L (98-107); Glucose 87 mg/dL (74-99); Magnesium 1.9 mg/dL (1.6-2.3); Non-African American GFR(MDRD) >60 (>60 ml/min/1.73 sqM); Potassium 3.9 mmol/L (3.5-5.1); Sodium 140 mmol/L (137-145)
[2017-05-23 08:16] VITALS: BP 163/72; RESP 16
[2017-05-23] MEDS ORDERED: ATORVASTATIN 20 MG TAB PO SCH (09:00)
[2017-05-23] MEDS ORDERED: amLODIPine 5 MG TAB PO SCH (09:00)
--- NOTE | 2017-05-23 19:52 | P.DS ---
Providers Date of admission: 05/22/17 14:15 Expected date of discharge: 05/23/17 Attending physician: Fannie Nickerson MD Consults: None Primary care physician: Stated None - Discharge Diagnosis(es) (1) Neuropathy Status: Acute (2) Dehydration Status: Acute (3) Dizziness Status: Acute (4) Hypertension Status: Chronic Priority: Low Hospital Course: Patient is an 86-year-old female history of hypertension, dyslipidemia , COPD, multiple cancers who presented with complaints of bilateral upper extremity numbness and dizziness. In the ER she had an elevated lactic acid level she was started on IV fluids. There was concern for possible urinary tract infection she was given 1 dose of Rocephin. She was admitted for further monitoring and care. Her left upper extremity numbness resolved but her right upper extremity numbness persisted. Her dizziness resolved after her IV fluid bolus. She underwent a CT head to rule out possible metastatic disease symptoms. This was negative. Her symptoms were not consistent with a stroke of them them being bilateral. She also underwent a CT of the cervical spine to rule out possible nerve compression resulting in neuropathy. This is also negative. She is maintained on telemetry which showed no acute arrhythmias. An echocardiogram was ordered but was not able to be done due to it being Wednesday. The patient was feeling much improved and elected to have her echocardiogram done at an outpatient with her primary care provider. She also would benefit from workup for neuropathy. She will follow-up with her primary care provider, Dr. Dunbar. With her neuropathy and resolving to the one hand only she may benefit from dietary evaluation for neuropathy. This can be done as an outpatient. She was able to ambulate to the bathroom without difficulty and without return of her dizziness. She was therefore discharged home in stable condition. Temperature 97.9 pulse 65 respiratory rate 16 blood pressure 163/72 oxygen saturation 95% on room air' General: non toxic, no distress, appears at stated age Derm: no rashes, no lesions Head: atraumatic, normocephalic, symmetric Eyes: EOMI, no lid lag, anicteric sclera ENT: no post nasal drip, no thrush Mouth: no lip lesion, mucus membranes moist Cardiovascular: S1S2 reg, no murmur, positive posterior tibial pulse bilateral, Lungs: CTA bilateral, no rhonchi, no rales , no accessory muscle use Abdominal: soft, nontender to palpation, no guarding, no appreciable organomegaly Ext: no gross muscle atrophy, no edema, no contractures Neuro: CN II-XI grossly intact, no focal neuro deficits Psych: Alert, oriented, appropriate affect Pertinent Studies: Head CT atrophy with progressive chronic appearing white matter ischemic changes. Cervical spine CT unremarkable. Procedures: None Patient Condition at Discharge: Good Plan - Discharge Summary New Discharge Prescriptions: Continue amLODIPine [Norvasc] 5 mg PO DAILY Atorvastatin [Lipitor] 20 mg PO DAILY Budesonide-Formot 160-4.5 Mcg [Symbicort 160-4.5 Mcg Inhaler] 1 puff INHALATION RT-BID Discharge Medication List Atorvastatin [Lipitor] 20 mg PO DAILY 10/02/16 [History] amLODIPine [Norvasc] 5 mg PO DAILY 10/02/16 [History] Budesonide-Formot 160-4.5 Mcg [Symbicort 160-4.5 Mcg Inhaler] 1 puff INHALATION RT-BID 05/22/17 [History] Follow up Appointment(s)/Referral(s): Abdoulaye Dunbar MD [STAFF PHYSICIAN] - 3 Days Patient Instructions/Handouts: Dehydration (GEN), Urinary Tract Infection in Women (GEN) Activity/Diet/Wound Care/Special Instructions: Frequent small meals and increase water intake, activity as tolerated. You could benefit from an outpatient echocardiogram if your primary doctor agrees. Also speak with them about further testing for your neuropathy in your hand. Discharge Disposition: HOME SELF-CARE
== END 2017-05-23 12:09 | disposition home or self-care (01) ==
LOC: EC 11:32 → 3OBS 14:15
PROVIDERS: ADMIT Internal Medicine; ATTEND Internal Medicine
DX: G62.9 Polyneuropathy, unspecified (principal); R42 Dizziness and giddiness; E86.0 Dehydration; I10 Essential (primary) hypertension; J44.9 Chronic obstructive pulmonary disease, unspecified; E78.5 Hyperlipidemia, unspecified; R20.0 Anesthesia of skin; E87.2 Acidosis; H91.90 Unspecified hearing loss, unspecified ear; Z86.79 Personal history of other diseases of the circulatory system; Z85.828 Personal history of other malignant neoplasm of skin; Z85.028 Personal history of other malignant neoplasm of stomach; Z85.3 Personal history of malignant neoplasm of breast; Z85.41 Personal history of malignant neoplasm of cervix uteri; Z85.72 Personal history of non-Hodgkin lymphomas; Z79.51 Long term (current) use of inhaled steroids; Z79.899 Other long term (current) drug therapy; Z86.711 Personal history of pulmonary embolism; Z87.891 Personal history of nicotine dependence; Z82.49 Family history of ischemic heart disease and other diseases of the circulatory system; Z66 Do not resuscitate
CPT/HCPCS: 96361; 96365; 99285; 36415; 94640 ×2; 93005; 80053; 80048; 82803; 83605; 83735 ×2; 84484; 85025; 85610; 81001; 87086; 71020; 72126; 70450; G0378 ×2; J0696; Q9967

== ENCOUNTER 2017-10-25 05:39 | Emergency (ER) | payer MEDICARE ==
[2017-10-25] MEDS ORDERED: MORPHINE SULFATE 5 MG/ML SYRINGE IV STA (06:14)
[2017-10-25 06:16] LABS: Basophils % (A) 0 %; Eosinophils # (A) 0.1 k/uL (0-0.7); Eosinophils % (A) 1 %; HGB 15.1 gm/dL (11.4-16.0); Lymphocytes % (A) 11 %; MCHC 32.2 g/dL (31.0-37.0); MCV 96.2 fL (80.0-100.0); Mean Platelet Volume 7.9; Monocytes # (A) 0.4 k/uL (0-1.0); Monocytes % (A) 4 %; Neutrophils # (A) 7.5 k/uL (1.3-7.7); Neutrophils % (A) 83 %; Platelet Count 245 k/uL (150-450); RBC 4.89 m/uL (3.80-5.40); RDW 14.6 % (11.5-15.5)
[2017-10-25 06:29] LABS: Amylase 101 U/L (30-110); Anion Gap 12 mmol/L; Calcium 10.4 mg/dL (8.4-10.2); Carbon Dioxide 23 mmol/L (22-30); Chloride 103 mmol/L (98-107); Glucose 130 mg/dL (74-99); Lipase 71 U/L (23-300); Sodium 138 mmol/L (137-145); Total Bilirubin 0.6 mg/dL (0.2-1.3)
[2017-10-25 06:33] LABS: Prothrombin Time 9.9 sec (9.0-12.0)
--- NOTE | 2017-10-25 06:34 | ED ---
Abdominal Pain HPI - General Source: patient Mode of arrival: ambulatory Limitations: no limitations - History of Present Illness MD Complaint: abdominal pain Onset/Timin -: days(s) Location: periumbilical, epigastric Radiation: back Severity: moderate Consistency: constant Improves With: nothing Worsens With: nothing Associated Symptoms: nausea <Estevan Brantley - Last Filed: 10/25/17 06:23> <Koby Jackson - Last Filed: 10/25/17 12:51> - General Chief Complaint: Abdominal Pain Stated Complaint: Abd pain Time Seen by Provider: 10/25/17 06:09 - History of Present Illness Initial Comments: This patient is an 87-year-old woman who presents to be evaluated for epigastric pain. History is from both the patient and her family members. The pain is been present since Wednesday, getting a little bit worse. She also has had some nausea.. She has a difficult time characterizing the pain. She has not noted any worsening or relieving factors. (Estevan Brantley) - Related Data Home Medications Medication Instructions Recorded Confirmed Atorvastatin [Lipitor] 20 mg PO DAILY 10/02/16 10/25/17 amLODIPine [Norvasc] 5 mg PO DAILY 10/02/16 10/25/17 Budesonide-Formot 160-4.5 Mcg 1 puff INHALATION RT-BID PRN 05/22/17 10/25/17 [Symbicort 160-4.5 Mcg Inhaler] Aspirin EC [Ecotrin Low Dose] 81 mg PO DAILY 10/25/17 10/25/17 Previous Rx's Medication Instructions Recorded Nitrofurantoin Monohyd/M-Cryst 100 mg PO Q12HR #14 cap 10/25/17 [Macrobid] Allergies Allergy/AdvReac Type Severity Reaction Status Date / Time No Known Allergies Allergy Verified 10/25/17 07:34 Review of Systems ROS Other: All systems not noted in ROS Statement are negative. Constitutional: Denies: fever, chills Respiratory: Denies: cough, dyspnea Cardiovascular: Denies: chest pain, palpitations, orthopnea, syncope Gastrointestinal: Reports: abdominal pain, nausea. Denies: vomiting, diarrhea, constipation, melena, hematochezia Genitourinary: Denies: dysuria, hematuria Musculoskeletal: Reports: back pain Skin: Denies: rash Neurological: Denies: headache, weakness, numbness <Estevan Brantley - Last Filed: 10/25/17 06:23> ROS Other: All systems not noted in ROS Statement are negative. <Koby Jackson - Last Filed: 10/25/17 12:51> ROS Statement: Those systems with pertinent positive or pertinent negative responses have been documented in the HPI. Past Medical History Past Medical History: Cancer, COPD, Hearing Disorder / Deafness, Hyperlipidemia , Hypertension, Pulmonary Embolus (PE) Additional Past Medical History / Comment(s): cervical ca, lymphoma, bilateral breast cancer, skin cancer, STOMACH CANCER, HX HEPATITIS A CHILD, VERTIgO, AAA(UNK SIZE), UTI, EATS SMALL FREQ MEALS D/T HAVING 2/3 STOMACH REMOVED. AORTIC ANEURYSM WITH AORTIC STENT, Arhtritis History of Any Multi-Drug Resistant Organisms: None Reported Past Surgical History: Hysterectomy Additional Past Surgical History / Comment(s): 2/3 stomach removed, bilateral masectomy, skin cancer removal, ETHAN CATARACTS, trigger finger left hand, stent to AAA Past Anesthesia/Blood Transfusion Reactions: Motion Sickness Additional Past Anesthesia/Blood Transfusion Reaction / Comment(s): VERTIGO Past Psychological History: No Psychological Hx Reported Smoking Status: Former smoker Past Alcohol Use History: Daily Past Drug Use History: None Reported - Past Family History Mother Family Medical History: CVA/TIA Additional Family Medical History / Comment(s): AGE 94 IN HER SLEEP. Father Family Medical History: Myocardial Infarction ([place]) Additional Family Medical History / Comment(s): FROM [place] AGE 55 <Estevan Brantley - Last Filed: 10/25/17 06:23> General Exam Limitations: no limitations General appearance: alert, in no apparent distress Head exam: Present: atraumatic, normocephalic Eye exam: Present: normal appearance. Absent: scleral icterus, conjunctival injection ENT exam: Present: mucous membranes dry Neck exam: Present: normal inspection, full ROM Respiratory exam: Present: normal lung sounds bilaterally. Absent: respiratory distress, wheezes, rales, rhonchi, stridor Cardiovascular Exam: Present: regular rate, normal rhythm, normal heart sounds. Absent: systolic murmur, diastolic murmur, rubs, gallop GI/Abdominal exam: Present: soft, tenderness. Absent: distended, guarding, rebound, rigid, mass, pulsatile mass, hernia Extremities exam: Present: normal inspection, normal capillary refill. Absent: pedal edema, calf tenderness Back exam: Present: normal inspection. Absent: CVA tenderness (R), CVA tenderness (L) Neurological exam: Present: alert Skin exam: Present: warm, dry, intact, normal color. Absent: rash <Estevan Brantley - Last Filed: 10/25/17 06:23> General appearance: alert, in no apparent distress Head exam: Present: atraumatic, normocephalic, normal inspection Eye exam: Present: normal appearance, PERRL, EOMI. Absent: scleral icterus, conjunctival injection, periorbital swelling ENT exam: Present: normal exam, mucous membranes moist Neck exam: Present: normal inspection. Absent: tenderness, meningismus, lymphadenopathy Respiratory exam: Present: normal lung sounds bilaterally. Absent: respiratory distress, wheezes, rales, rhonchi, stridor Cardiovascular Exam: Present: regular rate, normal rhythm, normal heart sounds. Absent: systolic murmur, diastolic murmur, rubs, gallop, clicks GI/Abdominal exam: Present: soft, normal bowel sounds. Absent: distended, tenderness, guarding, rebound, rigid Extremities exam: Present: normal inspection, full ROM, normal capillary refill. Absent: tenderness, pedal edema, joint swelling, calf tenderness Back exam: Present: normal inspection Neurological exam: Present: alert, oriented X3, CN II-XII intact Psychiatric exam: Present: normal affect, normal mood Skin exam: Present: warm, dry, intact, normal color. Absent: rash <Koby Jackson - Last Filed: 10/25/17 12:51> Vital Signs 10/25/17 10/25/17 10/25/17 05:40 07:22 10:36 Temperature 97.6 F Pulse Rate 94 67 72 Respiratory 16 18 17 Rate Blood Pressure 156/74 150/70 148/75 O2 Sat by Pulse 96 98 99 Oximetry Medical Decision Making - Lab Data Result diagrams: 10/25/17 05:45 <Estevan Brantley - Last Filed: 10/25/17 06:23> - Lab Data Result diagrams: 10/25/17 05:45 10/25/17 05:45 - EKG Data -: EKG Interpreted by Me (EKG shows normal sinus rhythm rate of 83, MA 178, QRS 86, QTC 418) - Radiology Data Radiology results: report reviewed (CT chest and pelvis negative for acute disease), image reviewed <Koby Jackson - Last Filed: 10/25/17 12:51> - Medical Decision Making 87 female the ER for reevaluation of bowel pain, CT chest and pelvis negative. Pain is controlled, positive urinary tract infection will treat appropriately. Patient can be discharged home (Koby Jackson) - Lab Data Lab Results 10/25/17 10/25/17 10/25/17 Range/Units 05:45 05:45 05:45 WBC (3.8-10.6) k/uL RBC (3.80-5.40) m/uL Hgb (11.4-16.0) gm/dL Hct (34.0-46.0) % MCV (80.0-100.0) fL MCH (25.0-35.0) pg MCHC (31.0-37.0) g/dL RDW (11.5-15.5) % Plt Count (150-450) k/uL Neutrophils % % Lymphocytes % % Monocytes % % Eosinophils % % Basophils % % Neutrophils # (1.3-7.7) k/uL Lymphocytes # (1.0-4.8) k/uL Monocytes # (0-1.0) k/uL Eosinophils # (0-0.7) k/uL Basophils # (0-0.2) k/uL PT 9.9 (9.0-12.0) sec INR 1.0 (<1.2) APTT 21.3 L (22.0-30.0) sec Sodium 138 (137-145) mmol/L Potassium 4.5 (3.5-5.1) mmol/L Chloride 103 (98-107) mmol/L Carbon Dioxide 23 (22-30) mmol/L Anion Gap 12 mmol/L BUN 22 H (7-17) mg/dL Creatinine 0.80 (0.52-1.04) mg/dL Est GFR (MDRD) Af Amer >60 (>60 ml/min/1.73 sqM) Est GFR (MDRD) Non-Af >60 (>60 ml/min/1.73 sqM) Glucose 130 H (74-99) mg/dL Plasma Lactic Acid Roland (0.7-2.0) mmol/L Calcium 10.4 H (8.4-10.2) mg/dL Total Bilirubin 0.6 (0.2-1.3) mg/dL AST 27 (14-36) U/L ALT 16 (9-52) U/L Alkaline Phosphatase 121 (38-126) U/L Total Creatine Kinase 39 (30-135) U/L CK-MB (CK-2) 1.0 (0.0-2.4) ng/mL CK-MB (CK-2) Rel Index 2.6 Total Protein 7.0 (6.3-8.2) g/dL Albumin 4.0 (3.5-5.0) g/dL Amylase 101 (30-110) U/L Lipase 71 (23-300) U/L Urine Color Urine Appearance (Clear) Urine pH (5.0-8.0) Ur Specific Odell (1.001-1.035) Urine Protein (Negative) Urine Glucose (UA) (Negative) Urine Ketones (Negative) Urine Blood (Negative) Urine Nitrite (Negative) Urine Bilirubin (Negative) Urine Urobilinogen (<2.0) mg/dL Ur Leukocyte Esterase (Negative) Urine RBC (0-5) /hpf Urine WBC (0-5) /hpf Ur Squamous Epith Cells (0-4) /hpf Urine Bacteria (None) /hpf Hyaline Casts (0-2) /lpf Urine Mucus (None) /hpf 10/25/17 10/25/17 10/25/17 Range/Units 05:45 05:45 08:55 WBC 9.0 (3.8-10.6) k/uL RBC 4.89 (3.80-5.40) m/uL Hgb 15.1 (11.4-16.0) gm/dL Hct 47.0 H (34.0-46.0) % MCV 96.2 (80.0-100.0) fL MCH 31.0 (25.0-35.0) pg MCHC 32.2 (31.0-37.0) g/dL RDW 14.6 (11.5-15.5) % Plt Count 245 (150-450) k/uL Neutrophils % 83 % Lymphocytes % 11 % Monocytes % 4 % Eosinophils % 1 % Basophils % 0 % Neutrophils # 7.5 (1.3-7.7) k/uL Lymphocytes # 1.0 (1.0-4.8) k/uL Monocytes # 0.4 (0-1.0) k/uL Eosinophils # 0.1 (0-0.7) k/uL Basophils # 0.0 (0-0.2) k/uL PT (9.0-12.0) sec INR (<1.2) APTT (22.0-30.0) sec Sodium (137-145) mmol/L Potassium (3.5-5.1) mmol/L Chloride (98-107) mmol/L Carbon Dioxide (22-30) mmol/L Anion Gap mmol/L BUN (7-17) mg/dL Creatinine (0.52-1.04) mg/dL Est GFR (MDRD) Af Amer (>60 ml/min/1.73 sqM) Est GFR (MDRD) Non-Af (>60 ml/min/1.73 sqM) Glucose (74-99) mg/dL Plasma Lactic Acid Roland 2.0 (0.7-2.0) mmol/L Calcium (8.4-10.2) mg/dL Total Bilirubin (0.2-1.3) mg/dL AST (14-36) U/L ALT (9-52) U/L Alkaline Phosphatase (38-126) U/L Total Creatine Kinase (30-135) U/L CK-MB (CK-2) (0.0-2.4) ng/mL CK-MB (CK-2) Rel Index Total Protein (6.3-8.2) g/dL Albumin (3.5-5.0) g/dL Amylase (30-110) U/L Lipase (23-300) U/L Urine Color Yellow Urine Appearance Cloudy H (Clear) Urine pH 5.5 (5.0-8.0) Ur Specific Odell 1.021 (1.001-1.035) Urine Protein 1+ H (Negative) Urine Glucose (UA) Trace H (Negative) Urine Ketones 1+ H (Negative) Urine Blood Trace H (Negative) Urine Nitrite Negative (Negative) Urine Bilirubin Negative (Negative) Urine Urobilinogen <2.0 (<2.0) mg/dL Ur Leukocyte Esterase Large H (Negative) Urine RBC 19 H (0-5) /hpf Urine WBC 148 H (0-5) /hpf Ur Squamous Epith Cells 19 H (0-4) /hpf Urine Bacteria Rare H (None) /hpf Hyaline Casts 22 H (0-2) /lpf Urine Mucus Few H (None) /hpf Disposition <Estevan Brantley - Last Filed: 10/25/17 06:23> <Koby Jackson - Last Filed: 10/25/17 12:51> Clinical Impression: Abdominal pain, UTI (urinary tract infection) Disposition: HOME SELF-CARE Condition: Good Instructions: Urinary Tract Infection in Women (ED), Abdominal Pain (ED) Prescriptions: Nitrofurantoin Monohyd/M-Cryst [Macrobid] 100 mg PO Q12HR #14 cap Referrals: Abdoulaye Dunbar MD [Primary Care Provider] - 1-2 days
[2017-10-25 06:35] LABS: Potassium 4.5 mmol/L (3.5-5.1)
[2017-10-25 06:36] LABS: ALT 16 U/L (9-52); AST 27 U/L (14-36); Alkaline Phosphatase 121 U/L (38-126); Blood Urea Nitrogen 22 mg/dL (7-17)
[2017-10-25 06:37] LABS: Partial Thromboplastin Time 21.3 sec (22.0-30.0)
[2017-10-25] MEDS ORDERED: ONDANSETRON 4 MG/2 ML VIAL IVP STA (06:39)
--- NOTE | 2017-10-25 07:05 | XR ---
EXAM: XR Abdomen, 2 Views CLINICAL HISTORY: Reason: abdominal pain TECHNIQUE: Frontal view of the abdomen/pelvis with upright view of the abdomen. COMPARISON: No relevant prior studies available. FINDINGS: Intraperitoneal space: No visualized free air. Gastrointestinal tract: Moderate colonic stool burden throughout visualized course. Small bowel caliber is normal, where visualized. Bones/joints: Unremarkable. Vasculature: Aortic graft. IMPRESSION: 1. Moderate stool burden within the colon. Correlate for constipation.
[2017-10-25] MEDS ORDERED: RX INFO: IV CONTRAST WAS GIVEN 1 EACH MISC MISCELLANE PRN (07:14)
[2017-10-25] MEDS ORDERED: SODIUM CHLORIDE 0.9% 1,000 ML IV STA (08:56)
[2017-10-25 09:10] LABS: Appearance,Urine Cloudy (Clear); Bacteria,Urine Rare /hpf; Bilirubin,Urine Negative (Negative); Blood,Urine Trace (Negative); Color,Urine Yellow; Glucose,Urine (UA) Trace (Negative); Hyaline Casts,Urine 22 /lpf (0-2); Ketones,Urine 1+ (Negative); Leukocyte Esterase,Urine Large (Negative); Mucus,Urine Few /hpf; Nitrite,Urine Negative (Negative); PH, Urine 5.5 (5.0-8.0); Protein,Urine 1+ (Negative); RBC,Urine 19 /hpf (0-5); Specific Gravity,Urine 1.021 (1.001-1.035); Squamous Epithelial Cell,Urine 19 /hpf (0-4); Urobilinogen,Urine <2.0 mg/dL (<2.0); WBC,Urine 148 /hpf (0-5)
[2017-10-25] MEDS ORDERED: cefTRIAXone IN SWFI 1,000 MG/10 ML SYRINGE IVP STA (10:23)
[2017-10-25] MEDS ORDERED: SODIUM CHLORIDE 0.9% 500 ML IV STA (10:23)
[2017-10-25 10:41] VITALS: RESP 17
--- NOTE | 2017-10-25 10:47 | CT ---
EXAMINATION TYPE: CT angio thoracic/abd aorta DATE OF EXAM: 10/25/2017 COMPARISON: CT abdomen and pelvis August 20, 2016. CTA chest October 14, 2016 HISTORY: Abdominal pain rule out dissection. CT DLP: 679.10 mGycm. Automated Exposure Control for Dose Reduction was Utilized. CONTRAST: CTA scan of the thorax, abdomen and pelvis is performed without oral and without and with IV Contrast , patient injected with 100 ml mL of Omnipaque 300. Aneurysm protocol with Three-D reconstructed imag es created on independent workstation and reviewed. FINDINGS: VASCULAR: There is moderate plaque in the aortic arch. There is bovine arch which is normal variant. Ascending aorta measures up to 3.2 cm in diameter. There is more moderate to severe focal eccentric n oncalcified plaque at origin of left subclavian artery causing stenosis felt under 50%. There is mode rate peripheral plaque in the descending thoracic aorta. There is juxtarenal patent aortobiiliac sten t graft 3 aneurysm of the infrarenal abdominal aorta. [place] aneurysm measures 4.7 x 4.5 cm AP diamet er axial image 65. Aneurysm felt stable or less prominent from prior study based on direct measuremen ts. There is patent celiac access, SMA, and bilateral renal arteries. There is good flow in internal and external iliac arteries bilaterally without significant stenosis. There is good flow and femoral arteries at groin region bilaterally. No linear hypodensity to suggest dissection is seen. Visualized pulmonary arteries show satisfactory opacification without embolism. LUNGS: There is background mild underlying emphysematous change. Lungs are grossly clear. No concerni ng parenchymal nodule or mass is present. No pleural effusion or pneumothorax is seen bilaterally. Tr acheobronchial tree is patent. MEDIASTINUM: There are no greater than 1 cm hilar or mediastinal lymph nodes. No cardiomegaly or pe ricardial effusion is seen. There is moderate to severe 3 vessel coronary artery calcification which is noted marker for coronary artery disease redemonstrated. OTHER: No additional significant abnormality is seen. LIVER/GB: Gallbladder is dilated with distended margins. Small dependent stones or gallbladder sludge near axial image 75 is redemonstrated. No surrounding inflammatory change is present. Mild perihepat ic ascites anteriorly is seen new from prior. PANCREAS: Some diffuse atrophy of pancreas is redemonstrated. SPLEEN: There is new perisplenic ascites along superior and lateral margin. ADRENALS: No significant abnormality is seen. KIDNEYS: Slight lobulation and cortical loss left kidney is again seen. BOWEL: Evaluation bowel is suboptimal secondary to lack of enteric contrast. There is no suspicious s mall or large bowel dilatation. There are diverticula in the sigmoid colon. Surgical sutures left mid to lower quadrant bowel loops are redemonstrated near axial image 76 with slightly more focal hetero geneous prominence at level of sutures noted. GENITAL ORGANS: Uterus is surgically absent or markedly atrophic in appearance. LYMPH NODES: No greater than 1cm abdominal or pelvic lymph nodes are appreciated. OSSEOUS STRUCTURES: Exaggerated thoracic kyphosis is again seen. There is moderate multilevel spurrin g in the thoracic spine. OTHER: There is new moderate amount of free fluid in pelvic cul-de-sac. There is mild fluid throughou t the mesentery of the lower abdomen and pelvis near axial image 92. IMPRESSION: 1. No CT evidence for dissection. Patent aortobiiliac stent graft through stable or less prominent in frarenal abdominal aortic aneurysm is noted. No new aneurysm is seen. 2. New small amount of abdominal and pelvic ascites of uncertain etiology as detailed above.
[2017-10-25] MEDS ORDERED: NITROFURANTOIN MONOHYD/M-CRYST 100 MG CAP PO STA (10:57)
[2017-10-25 13:09] VITALS: BP 175/74; PULSE 73; TEMP 97.7
== END 2017-10-25 13:12 | disposition home or self-care (01) ==
LOC: EC 05:39
DX: N39.0 Urinary tract infection, site not specified (principal); R10.13 Epigastric pain; R10.33 Periumbilical pain; R11.0 Nausea; E78.5 Hyperlipidemia, unspecified; I10 Essential (primary) hypertension; H91.90 Unspecified hearing loss, unspecified ear; Z85.41 Personal history of malignant neoplasm of cervix uteri; Z85.3 Personal history of malignant neoplasm of breast; Z85.828 Personal history of other malignant neoplasm of skin; Z85.72 Personal history of non-Hodgkin lymphomas; Z87.891 Personal history of nicotine dependence; Z86.19 Personal history of other infectious and parasitic diseases; Z79.82 Long term (current) use of aspirin; Z79.899 Other long term (current) drug therapy; Z90.3 Acquired absence of stomach [part of]
CPT/HCPCS: 36415; 93005; 80053; 82150; 82550; 82553; 83605; 83690; 85025; 85610; 85730; 81001; 74018; 75635; 71275; 99285; 96374; 96375 ×2; 96361 ×2; J2405; J0696; Q9967; J2274

== ENCOUNTER 2018-04-28 08:04 | Inpatient (IN) | payer MEDICARE ==
--- NOTE | 2018-04-28 08:15 | ED ---
Fall HPI - General Chief Complaint: Fall Stated Complaint: Fall-Hip Pain Time Seen by Provider: 04/28/18 08:10 Source: patient, EMS, RN notes reviewed Mode of arrival: EMS Limitations: physical limitation - History of Present Illness Initial Comments: This an 87-year-old female presents emergency Department with chief complaint of a fall. She states that she fell off the toilet onto her left hip and has severe right hip pain. Patient was unable to get up by herself. She denies any head injury no loss conscious. Patient states she had no prior hip issues and orthopedic surgeries. Patient denies syncopal episode, chest pain, shortness breath, back pain, upper extremity injury. Patient was given 50 mcg of fentanyl for pain which has helped and she does not request any further pain medication at this time. - Related Data Home Medications Medication Instructions Recorded Confirmed Atorvastatin [Lipitor] 20 mg PO DAILY 10/02/16 10/25/17 amLODIPine [Norvasc] 5 mg PO DAILY 10/02/16 10/25/17 Budesonide-Formot 160-4.5 Mcg 1 puff INHALATION RT-BID PRN 05/22/17 10/25/17 [Symbicort 160-4.5 Mcg Inhaler] Aspirin EC [Ecotrin Low Dose] 81 mg PO DAILY 10/25/17 10/25/17 Previous Rx's Medication Instructions Recorded Nitrofurantoin Monohyd/M-Cryst 100 mg PO Q12HR #14 cap 10/25/17 [Macrobid] Allergies Allergy/AdvReac Type Severity Reaction Status Date / Time No Known Allergies Allergy Verified 04/28/18 08:06 Review of Systems ROS Statement: Those systems with pertinent positive or pertinent negative responses have been documented in the HPI. ROS Other: All systems not noted in ROS Statement are negative. Past Medical History Past Medical History: Cancer, COPD, Hearing Disorder / Deafness, Hyperlipidemia , Hypertension, Pulmonary Embolus (PE) Additional Past Medical History / Comment(s): cervical ca, lymphoma, bilateral breast cancer, skin cancer, STOMACH CANCER, HX HEPATITIS A CHILD, VERTIgO, AAA(UNK SIZE), UTI, EATS SMALL FREQ MEALS D/T HAVING 2/3 STOMACH REMOVED. AORTIC ANEURYSM WITH AORTIC STENT, Arhtritis History of Any Multi-Drug Resistant Organisms: None Reported Past Surgical History: Hysterectomy Additional Past Surgical History / Comment(s): 2/3 stomach removed, bilateral masectomy, skin cancer removal, ETHAN CATARACTS, trigger finger left hand, stent to AAA Past Anesthesia/Blood Transfusion Reactions: Motion Sickness Additional Past Anesthesia/Blood Transfusion Reaction / Comment(s): VERTIGO Past Psychological History: No Psychological Hx Reported Smoking Status: Former smoker Past Alcohol Use History: Daily Past Drug Use History: None Reported - Past Family History Mother Family Medical History: CVA/TIA Additional Family Medical History / Comment(s): AGE 94 IN HER SLEEP. Father Family Medical History: Myocardial Infarction ([place]) Additional Family Medical History / Comment(s): FROM [place] AGE 55 General Exam Limitations: no limitations General appearance: alert, in no apparent distress Head exam: Present: atraumatic, normocephalic, normal inspection Eye exam: Present: normal appearance, PERRL, EOMI. Absent: scleral icterus, conjunctival injection, periorbital swelling ENT exam: Present: normal exam, mucous membranes moist Neck exam: Present: normal inspection, full ROM. Absent: tenderness, meningismus, lymphadenopathy Respiratory exam: Present: normal lung sounds bilaterally. Absent: respiratory distress, wheezes, rales, rhonchi, stridor Cardiovascular Exam: Present: regular rate, normal rhythm, normal heart sounds. Absent: systolic murmur, diastolic murmur, rubs, gallop, clicks Extremities exam: Present: other (Moderate tenderness to palpation of the leftt hip, patient is in a flexed position) Neurological exam: Present: alert, oriented X3, CN II-XII intact, reflexes normal. Absent: motor sensory deficit Skin exam: Present: warm, dry, intact, normal color. Absent: rash Course Vital Signs 04/28/1818 08:07 08:45 Temperature 97.5 F L Pulse Rate 63 61 Respiratory 18 18 Rate Blood Pressure 151/66 158/72 O2 Sat by Pulse 95 98 Oximetry Medical Decision Making - Medical Decision Making 87-year-old female presented for a fall. Patient has a left femoral neck fracture. Case was discussed with [facility] on-call for orthopedics who accepted admission for Dr. Sebastian. Patient will be admitted with on-call medicine for surgical clearance Disposition Clinical Impression: Fall, Hip fracture, left Disposition: ADMITTED IP TO THIS HOSP Condition: Stable Referrals: Abdoulaye Dunbar MD [Primary Care Provider] - 1-2 days
--- NOTE | 2018-04-28 08:35 | XR ---
EXAMINATION TYPE: XR chest 1V DATE OF EXAM: 04/28/2018 COMPARISON: 05/22/2017 HISTORY: Pain TECHNIQUE: Single frontal view of the chest is obtained. FINDINGS: Hyperinflation compatible COPD. Prominent pulmonary artery suggest a degree of underlying pulmonary arterial hypertension. Diffuse osteopenia noted. No pneumothorax or pleural effusion. No ov ert failure. Aortic stents noted in the upper abdomen. IMPRESSION: Correlate for COPD and pulmonary arterial hypertension.
--- NOTE | 2018-04-28 08:38 | XR ---
EXAMINATION TYPE: XR Hip LT and AP Pelvis DATE OF EXAM: 04/28/2018 COMPARISON: 10/25/2017 HISTORY: Pain TECHNIQUE: A single AP view of the pelvis is obtained. Two views of the left hip are obtained. FINDINGS: There is aortic stent with evidence of atherosclerotic changes stent does demonstrate mild tapered narrowing the level of L2-L3.. Additional postsurgical changes. Diffuse osteopenia and arthropathy of the hips with evidence of a left femoral neck fracture which is displaced. IMPRESSION: 1. Left femoral neck displaced fracture.
[2018-04-28 08:54] LABS: Basophils % (A) 0 %; Eosinophils # (A) 0.2 k/uL (0-0.7); Eosinophils % (A) 3 %; HCT 40.8 % (34.0-46.0); HGB 13.5 gm/dL (11.4-16.0); Lymphocytes # (A) 1.2 k/uL (1.0-4.8); Lymphocytes % (A) 21 %; MCH 31.7 pg (25.0-35.0); MCHC 33.1 g/dL (31.0-37.0); MCV 95.8 fL (80.0-100.0); Mean Platelet Volume 6.7; Monocytes # (A) 0.3 k/uL (0-1.0); Monocytes % (A) 5 %; Neutrophils # (A) 4.1 k/uL (1.3-7.7); Neutrophils % (A) 70 %; Platelet Count 263 k/uL (150-450); RBC 4.26 m/uL (3.80-5.40); RDW 12.8 % (11.5-15.5); WBC 5.8 k/uL (3.8-10.6)
[2018-04-28 09:02] LABS: Albumin 3.4 g/dL (3.5-5.0); Calcium 9.4 mg/dL (8.4-10.2); Potassium 4.4 mmol/L (3.5-5.1); Total Bilirubin 0.4 mg/dL (0.2-1.3); Total Protein 5.6 g/dL (6.3-8.2)
[2018-04-28 09:10] LABS: INR 1.1 (<1.2); Prothrombin Time 10.7 sec (9.0-12.0)
[2018-04-28 09:12] LABS: Partial Thromboplastin Time 20.8 sec (22.0-30.0)
--- NOTE | 2018-04-28 09:51 | CT ---
EXAMINATION TYPE: CT brain mario alberto wo con DATE OF EXAM: 04/28/2018 COMPARISON: Brain 05/22/2017 HISTORY: 87-year-old female with pain after fall today with injury CT DLP: 1398.1 mGycm Automated exposure control for dose reduction was used. Technique: Examination of the head was done in axial plane without intravenous contrast. Coronal and sagittal reconstructions performed. CT of the cervical spine was obtained in axial plane without intravenous injection of contrast mater ial. Coronal and sagittal reformatted images were obtained from the axial views for evaluation of f ractures, spinal alignment and canal. FINDINGS: Head: There is no evidence of acute intracranial hemorrhage, acute ischemic changes, mass, mass-effect, or extra-axial fluid collection. There is no effacement of cerebral sulci or basal subarachnoid cister ns. There is no hydrocephalus. There is no midline shift. Bassett-white matter distinction is preserv ed. Moderate mucosal thickening right ethmoid air cells. Moderate generalized supratentorial volume loss redemonstrated with moderate to severe confluent whit e matter hypodensities in both cerebral hemispheres. 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 Mastoid air cells well pneumatized. Orbits and globes are intact. No calvarial fracture. Cervical spine: Accentuated cervical lordosis. No predental space widening, prevertebral soft tissue swelling, or certified master safecracker niocervical junction abnormality. Degenerative changes at the C1 dens articulation. Trace grade 1 retrolisthesis at C4-C5 and trace grade 1 anterolisthesis at C7-T1. No evident canal compromise. No acute fracture seen of the cervical spine. Asymmetric soft tissue thickening along the right oropharynx and left piriform sinus, refer to axial images 18, 25, and 30 may be due to neck positioning and redundant soft tissues. Scattered facet and uncovertebral joint degenerative change with very minimal mild neuroforaminal shelley nosis throughout. Sagittal and coronal reformatted images confirm above findings. COMBINED IMPRESSION: 1. Moderate atrophy and moderate to severe confluent changes of chronic small vessel ischemic disease . 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 Follow-up [facility] [place] [facility] [place] can further evaluate. No acute intracranial abnormality seen. 2. No acute fracture of the cervical spine. Degenerative grade 1 spondylolisthesis at C4-C5 and C7-T1 . 3. Asymmetric soft tissue within the right oropharynx and left piriform sinus. This could be secondar y to neck positioning and redundant soft tissues. Recommend direct visualization to exclude neoplasm.
[2018-04-28] MEDS: MORPHINE SULFATE 4 MG/ML SYRINGE IV PRN ×2 (10:07→23:50)
[2018-04-28] MEDS ORDERED: HYDROmorphone 1 MG/ML 1 ML SYRINGE IVP PRN ×2 (10:46→10:48)
[2018-04-28] MEDS: ONDANSETRON 4 MG/2 ML VIAL IVP PRN ×3 (11:17→23:50)
[2018-04-28] MEDS: amLODIPine 5 MG TAB PO SCH (11:38)
[2018-04-28] MEDS: ATORVASTATIN 20 MG TAB PO SCH (11:38)
[2018-04-28 13:08] VITALS: BMI 21.3
--- NOTE | 2018-04-28 14:13 | CONS ---
CONSULTATION CHIEF COMPLAINT: 87-year-old white female status post fall. She came in with severe right hip pain and left hip pain, unable to get up by herself. She was found to have a fracture, was given pain medicine in the emergency room and was admitted for medical management for clearance for surgery. HOME MEDICINES: Lipitor 20 daily, Norvasc 5 daily, Symbicort b.i.d., aspirin 180 daily. She has been on nitrofurantoin for UTI. ALLERGIES: No known drug allergies. REVIEW OF SYSTEMS: Fourteen point review of systems negative except for mentioned in HPI. PAST MEDICAL HISTORY: Cancer, COPD, dyslipidemia, hypertension, pulmonary embolism. Past medical history of cervical cancer, lymphoma, bilateral breast cancer, skin cancer, stomach cancer, hepatitis A, B and C, AAA, aortic aneurysm, aortic stent, arthritis, hysterectomy, 2/3 of her stomach removed, bilateral mastectomies, skin cancer, bilateral cataracts, trigger finger stent, AAA. SOCIAL HISTORY: Former smoker. Daily alcohol. FAMILY HISTORY: Mother CVA and TIA, at age 94 in her sleep. Father with myocardial infarction age 55. PHYSICAL EXAMINATION: Temp 97.5, pulse 61 to 62, respiratory rate 16 to 18, blood pressure 130s over 60s to 70s, O2 95 to 98% on room air. CARDIOVASCULAR: S1, S2. LUNGS: Transmitted upper sounds. HEMATOLOGY: Negative Homans. PSYCH: Fair mood and affect. NEUROLOGIC: Alert and oriented x3. MUSCULOSKELETAL: As mentioned difficulty moving her left hip, flexed position. Moderate tenderness. ASSESSMENT: 1. Left femoral neck fracture. 2. Chronic obstructive pulmonary disease. 3. Hypertension. 4. Dyslipidemia. 5. Aortic abdominal aneurysm repair. 6. History of breast cancer, skin cancer, stomach cancer, cervical cancer. 7. History of pulmonary embolism. Please put the patient on blood thinning at this time. Preop she is already on other medications. EKG did not show any ischemia, so she will be cleared for surgery at this time. MMODL / IJN: [id number] /
--- NOTE | 2018-04-28 15:13 | P.HPOR ---
History of Present Illness H&P Date: 04/28/18 Chief Complaint: Left hip pain The patient is a pleasant 87-year-old female who presented to the emergency department after sustaining a fall at home. She states that she fell off the toilet early this morning. The patient did have left hip pain after the fall. She denies any other injuries. She denies hitting her head but did have a loose tooth that was painful this morning. A CT of the head revealed no acute bleed. X-rays of the left hip reveal a displaced femoral neck fracture. Patient was admitted to orthopedics for surgical intervention. Dr. Novak was consulted for medical management and surgical clearance. The patient does have a history of bilateral breast cancer, lymphoma, COPD, hypertension, hyperlipidemia, PE, cervical cancer, skin cancer, and stomach cancer. She was on Xarelto following the PE last year but has completed her course of treatment. Today, the patient states that she is having left hip pain as expected. She denies fever, chills, rigors, shortness breath, chest pain, and abdominal pain at this time. Review of Systems Constitutional: Denies chills, Denies fatigue, Denies fever Cardiovascular: Denies chest pain, Denies shortness of breath Respiratory: Denies cough Gastrointestinal: Denies diarrhea, Denies nausea, Denies vomiting Musculoskeletal: left: hip pain, hip stiffness, hip swelling Past Medical History Past Medical History: Cancer, COPD, Hearing Disorder / Deafness, Hyperlipidemia , Hypertension, Pulmonary Embolus (PE) Additional Past Medical History / Comment(s): cervical ca, lymphoma, bilateral breast cancer, skin cancer, STOMACH CANCER, HX HEPATITIS A CHILD, VERTIgO, AAA(UNK SIZE), UTI, EATS SMALL FREQ MEALS D/T HAVING 2/3 STOMACH REMOVED. AORTIC ANEURYSM WITH AORTIC STENT, Arhtritis History of Any Multi-Drug Resistant Organisms: None Reported Past Surgical History: Hysterectomy Additional Past Surgical History / Comment(s): 2/3 stomach removed, bilateral masectomy, skin cancer removal, ETHAN CATARACTS, trigger finger left hand, stent to AAA Past Anesthesia/Blood Transfusion Reactions: Motion Sickness Additional Past Anesthesia/Blood Transfusion Reaction / Comment(s): VERTIGO Past Psychological History: No Psychological Hx Reported Additional Psychological History / Comment(s): PT LIVES IN OWN HOME WITH 1 CAT.PT STATED GETS AROUND WITHOUT A CANE OR WALKER.STILL DRIVES, HAS PERSON COME IN TO CLEAN HOUSE EVERY OTHER WEEK. 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 Smoking Status: Former smoker Past Alcohol Use History: Daily Additional Past Alcohol Use History / Comment(s): STARTED SMOKING AT AGE 22 QUIT , ENJOYS 1 GLASS OF WINE A NIGHT Past Drug Use History: None Reported - Past Family History Mother Family Medical History: CVA/TIA Additional Family Medical History / Comment(s): AGE 94 IN HER SLEEP. Father Family Medical History: Myocardial Infarction ([place]) Additional Family Medical History / Comment(s): FROM [place] AGE 55 Medications and Allergies Home Medications Medication Instructions Recorded Confirmed Type Atorvastatin [Lipitor] 20 mg PO DAILY 10/02/16 04/28/18 History amLODIPine [Norvasc] 5 mg PO DAILY 10/02/16 04/28/18 History Allergies Allergy/AdvReac Type Severity Reaction Status Date / Time No Known Allergies Allergy Verified 04/28/18 09:04 Physical Examination The patient is a 87 year old female that is no acute distress. She is alert and oriented x3. The patient's head is normocephalic and atraumatic. Exam of the cervical spine reveals no pain upon palpation or range of motion. Exam of the bilateral upper extremities reveal no obvious deformities or pain upon range of motion. There is an old healing skin tear to her right elbow. Exam of the right lower extremity reveals no pain upon palpation. Exam of the left lower extremity reveals a mildly externally rotated and shortened leg. No pain upon palpation to the lateral hip. There is pain upon logrolling and any range of motion of the leg. Bilateral calves are soft and nontender. Patient has good foot and ankle motion bilaterally. Neurological and circulatory status is intact. Results - Labs Labs: Abnormal Lab Results - Last 24 Hours (Table) 04/28/18 04/28/18 Range/Units 08:44 08:44 APTT 20.8 L (22.0-30.0) sec Total Protein 5.6 L (6.3-8.2) g/dL Albumin 3.4 L (3.5-5.0) g/dL H & H 04/28/18 Range/Units 08:44 Hgb 13.5 (11.4-16.0) gm/dL Hct 40.8 (34.0-46.0) % Coagulation 04/28/18 Range/Units 08:44 INR 1.1 (<1.2) Result Diagrams: 04/28/18 08:44 04/28/18 08:44 - Diagnostic results Hip x-ray: image reviewed (X-rays dated 04/28/2018 reveals a displaced femoral neck fracture.) Assessment and Plan (1) Fall Current Visit: Yes Status: Acute Code(s): W19.XXXA - UNSPECIFIED FALL, INITIAL ENCOUNTER SNOMED Code(s): 3128318 (2) Hip fracture, left Current Visit: Yes Status: Acute Code(s): S72.002A - FRACTURE OF UNSP PART OF NECK OF LEFT FEMUR, INIT SNOMED Code(s): 929318086 Plan: The clinical and x-ray findings were discussed with the patient and the patient' s family at the bedside. The case was also discussed with Dr. Sebastian. She' ll remain on bedrest with nonweightbearing to the left lower extremity. She is scheduled for a left hip hemiarthroplasty tomorrow. She will remain nothing by mouth at midnight. She has been cleared by Dr. Novak for surgery. UA is pending. Heparin was ordered pre-operatively for DVT prophylaxis. We will continue to follow patient closely and make further recommendations as needed. Surgical risks were discussed at length with the patient and the patient's family. Possible risks and complications including but not limited to risk of bleeding, infection, dislocation, DVT, stroke, heart attack, and were discussed.
[2018-04-28] MEDS: HYDROmorphone 1 MG/ML 1 ML SYRINGE IVP PRN ×2 (15:59→20:09)
[2018-04-28 17:06] LABS: Mucus,Urine Rare /hpf; RBC,Urine 10 /hpf (0-5); Squamous Epithelial Cell,Urine <1 /hpf (0-4); WBC,Urine 46 /hpf (0-5)
[2018-04-28 17:10] LABS: Appearance,Urine Clear (Clear); Color,Urine Light Yellow; PH, Urine 6.5 (5.0-8.0); Specific Gravity,Urine 1.019 (1.001-1.035)
[2018-04-28 17:11] LABS: Bilirubin,Urine Negative (Negative); Glucose,Urine (UA) Negative (Negative); Ketones,Urine 2+ (Negative); Protein,Urine 1+ (Negative)
[2018-04-28 17:12] LABS: Blood,Urine Small (Negative); Leukocyte Esterase,Urine Large (Negative); Nitrite,Urine Negative (Negative)
[2018-04-28] MEDS: HEPARIN SODIUM,PORCINE 5,000 UNIT/ML 1 ML VIAL SQ SCH (20:08)
[2018-04-28] MEDS: HYDROcodone/APAP 5-325MG 1 EACH TAB PO PRN (21:17)
[2018-04-28] MEDS: SODIUM CHLORIDE 0.9% 1,000 ML IV SCH (23:49)
[2018-04-29] MEDS: MORPHINE SULFATE 4 MG/ML SYRINGE IV PRN ×2 (05:20→12:03)
[2018-04-29] MEDS: ATORVASTATIN 20 MG TAB PO SCH (07:32)
[2018-04-29] MEDS: amLODIPine 5 MG TAB PO SCH (07:38)
[2018-04-29] MEDS: SYMBICORT 160-4.5 MCG INHALER INHALATION PRN (09:00)
[2018-04-29] MEDS: HEPARIN SODIUM,PORCINE 5,000 UNIT/ML 1 ML VIAL SQ SCH ×2 (11:56→20:40)
[2018-04-29] MEDS: ONDANSETRON 4 MG/2 ML VIAL IVP PRN (12:06)
[2018-04-29] MEDS ORDERED: MAGNESIUM HYDROXIDE 2,400 MG/10 ML CUP PO PRN (12:15)
[2018-04-29] MEDS ORDERED: NALOXONE 0.4 MG/ML 1 ML VIAL IV PRN (12:15)
[2018-04-29 12:32] LABS: Basophils % (A) 0 %; Eosinophils # (A) 0.1 k/uL (0-0.7); Eosinophils % (A) 1 %; HCT 42.2 % (34.0-46.0); HGB 13.4 gm/dL (11.4-16.0); Lymphocytes # (A) 0.8 k/uL (1.0-4.8); Lymphocytes % (A) 10 %; MCH 31.7 pg (25.0-35.0); MCHC 31.6 g/dL (31.0-37.0); MCV 100.3 fL (80.0-100.0); Mean Platelet Volume 7.1; Monocytes # (A) 0.5 k/uL (0-1.0); Monocytes % (A) 6 %; Neutrophils # (A) 6.2 k/uL (1.3-7.7); Neutrophils % (A) 82 %; Platelet Count 229 k/uL (150-450); RBC 4.21 m/uL (3.80-5.40); RDW 12.9 % (11.5-15.5); WBC 7.6 k/uL (3.8-10.6)
[2018-04-29] MEDS ORDERED: IV FLUID CONTINUATION 1,000 ML IV ONE (12:32)
[2018-04-29] MEDS ORDERED: ONDANSETRON 4 MG/2 ML VIAL IVP ONE (12:33)
--- NOTE | 2018-04-29 12:38 | P.PN ---
Progress Note - Text The patient and her family would like to change the patient's code status to a full code during her hip operation.
[2018-04-29] MEDS ORDERED: PHENYLEPHRINE-0.9% NACL SYG 1 MG/10 ML SYRINGE ONE (12:39)
[2018-04-29] MEDS ORDERED: MIDAZOLAM 2 MG/2 ML VIAL ONE (12:39)
[2018-04-29] MEDS ORDERED: fentaNYL (PF) 50 MCG/ML 2 ML AMP ONE ×2 (12:39)
[2018-04-29] MEDS ORDERED: KETAMINE 10 MG/ML 20 ML VIAL ONE (12:39)
[2018-04-29] MEDS: ceFAZolin IN SWFI 2 GM/20 ML SYRINGE IVP SCH (13:05)
[2018-04-29] MEDS ORDERED: LACTATED RINGERS 1,000 ML IV ONE ×2 (13:48)
--- NOTE | 2018-04-29 15:03 | P.OP ---
Date of Procedure: 04/29/18 Preoperative Diagnosis: 1. Left displaced subcapital femoral neck fracture Postoperative Diagnosis: Same Procedure(s) Performed: Left cemented hip hemiarthroplasty Implants: Minerva LDFx size 11 stem and 45 mm head Anesthesia: spinal Surgeon: Mic Sebastian Waste Hand #1: Negrita Partida Estimated Blood Loss (ml): 150 IV fluids (ml): 400 Urine output (ml): 150 Pathology: other (Femoral head sent to pathology) Condition: stable Disposition: PACU Indications for Procedure: The patient is an 87-year-old with multiple medical problems who sustained a ground-level fall resulting in a displaced subcapital femoral neck fracture. The patient was seen in the emergency department and admitted under my care area and she was cleared for surgery by internal medicine. I met with the patient and her daughter preoperatively to discuss treatment. My recommendation was to perform a cemented hip hemiarthroplasty. We discussed potential risks and complications of surgery including but not limited to risk of anesthesia, risk of superficial infection, risk of deep infection, risk of damage to local blood vessels or nerves, risk of intraoperative fracture, risk of postoperative fracture, risk of hip dislocation, risk of leg length discrepancies, risk of loosening of the component, risk of chronic pain, risk of chronic swelling, risk of difficulty ambulating, risk of inability to regain preinjury level of function, risk of DVT, risk of PE, risk of acute coronary event, risk of stroke, risk of pneumonia, risk of pressure sore, and possibly loss of life or limb. The patient and her daughter voiced her understanding of these potential complications and also acknowledged that there are other less common complications possible. They provided their verbal and written consent to go forward with surgery. Description of Procedure: The patient was identified and prepped with holding and the correct left leg was marked with my initials. I reviewed the consent form with the patient and her family. All of their questions were answered. The patient was then brought back to the operating room. She was placed in the lateral decubitus position and a spinal anesthetic was administered. Preoperative antibiotics were also administered at this time. She was returned to a supine position and then transferred to an or table. She was flipped into the lateral decubitus position with the right side down and the affected left hip upward. She was secured to the table with a Montral frame. An axillary roll was placed. All bony prominences were well-padded. The left leg was then prepped and draped in the standard sterile fashion. Prior to starting surgery timeout was performed identifying the correct patient, operative extremity, and procedure. I began by outlining an incision over the lateral aspect of the hip with a 10 cm longitudinal limb marked out over the posterior half of the proximal femur and then angled the incision posteriorly at the tip of the greater trochanter at a 45 angle for another 10 cm. Skin incision was made with a 15 blade scalpel. Dissection was carried down to the subcutaneous tissue with tenotomy scissors. The IT band and fascia sergio was identified and incised longitudinally in line with the skin incision distally and proximally the fibers of the gluteus sarah were bluntly dissected using my finger. A Charnley retractor was placed. Remnants of the trochanteric bursa were sharply moved off the posterior aspect of the proximal femur. The leading edge of the piriformis was identified and a medium Saldaña elevator was placed between the piriformis and posterior hip capsule. The piriformis and short external rotators were then released off of the femur. A capsulotomy was then performed and there was a caballero of blood from the hematoma. The proximal femoral neck was exposed. A neck cut was then made in situ 1 thumb breath above the lesser trochanter. The femoral head was then removed with a corkscrew and passed off to the back table where it was sized and sent to pathology. Entrance to the proximal canal was gained with a box osteotome and canal finder. I then reamed sequentially and broached up to a size 11 which felt tight proximally. I trialed and the hip felt stable. The femoral head trial and broach were then removed. The proximal canal was cleansed with a brush and irrigation. A moist sponge was placed in the acetabulum. A cement restrictor was placed distally. I then pressurized cement into the proximal canal notifying anesthesia. A size 11 mm final component was then gently tapped into place and held until the cement had hardened. The implant felt stable. I then trialed again with a standard offset size 45 mm head was felt stable in all planes of motion. Leg length appeared symmetric. The hip was gently dislocated and the trial head was removed. The Vega taper was cleansed and a final 45 mm head was gently tapped into place. All excess cement had been removed. The wound was copiously irrigated and the hip was then gently reduced. The wound was once again irrigated. The posterior capsule was closed with interrupted 0 Vicryl sutures. The piriformis was attached to the greater trochanter using #2 Ethibond and a modified Medardo-Miguel Angel stitch to grasp the piriformis tendon. The IT band was closed with a running Quill stitch. The deep subcu was reapproximated using 2-0 Vicryl. The skin was closed with a running Monocryl subcuticular stitch. The skin was reinforced with Dermabond and a sterile dressing. I verified that all instrument, sponge, and sharp counts were correct. The drapes were taken down and a hip abduction pillow was placed. The patient was then [facility], transferred to a [facility]urney, and brought to PACU without the procedure well. Negrita Partida PA-C was required is a skilled maintenance assistant for patient positioning, surgical exposure, reduction, placement of implants, closure of wounds, and application of dressing. Plan: The patient is going to be admitted back to the orthopedics floor. She can weight-bear as tolerated on her operative extremity. She is to follow posterior hip precautions for 6 weeks. She will receive 2 doses of postoperative antibiotics. I will defer to internal medicine for the choice of anticoagulant and duration of treatment given her prior history of PE.
--- NOTE | 2018-04-29 15:14 | XR ---
EXAMINATION TYPE: XR Hip Limited LT DATE OF EXAM: 04/29/2018 COMPARISON: NONE HISTORY: Postop TECHNIQUE: One view submitted. FINDINGS: There is postsurgical change in near anatomic alignment. There is soft tissue edema and emphysema. V ascular stent in the upper pelvis noted. IMPRESSION: 1. Postoperative change. Appears in near-anatomic alignment.
[2018-04-29] MEDS: SODIUM CHLORIDE 0.9% 1,000 ML IV SCH ×2 (16:40)
[2018-04-29] MEDS ORDERED: WARFARIN 5 MG TAB PO ONE (20:30)
[2018-04-29] MEDS: SENNOSIDES-DOCUSATE SODIUM 1 EACH TAB PO SCH (20:39)
--- NOTE | 2018-04-29 23:44 | PN ---
PROGRESS NOTE SUBJECTIVE: This is a white female who is going to have left hip surgery today for left hip fracture. CARDIOVASCULAR: S1, S2. LUNGS: Transmitted upper airway sounds. HEMATOLOGY: Negative Homans'. ASSESSMENT: 1. Left hip fracture. 2. History of multiple cancers. EKG shows no ischemia. I will continue to see her after surgery. Her pain is under fair control at this time. MMODL / IJN: [id number] /
[2018-04-30 07:08] LABS: INR 1.1 (<1.2); Prothrombin Time 10.3 sec (9.0-12.0)
[2018-04-30] MEDS: HYDROcodone/APAP 5-325MG 1 EACH TAB PO PRN ×2 (08:27→18:02)
[2018-04-30] MEDS: ATORVASTATIN 20 MG TAB PO SCH (08:28)
[2018-04-30] MEDS: HEPARIN SODIUM,PORCINE 5,000 UNIT/ML 1 ML VIAL SQ SCH ×2 (08:28→21:01)
[2018-04-30] MEDS: amLODIPine 5 MG TAB PO SCH (08:29)
[2018-04-30] MEDS: ceFAZolin IN SWFI 2 GM/20 ML SYRINGE IVP SCH (08:29)
--- NOTE | 2018-04-30 09:08 | P.PN ---
Subjective Progress Note Date: 04/30/18 The patient is doing well this morning and is only complaining of pain with movement of the hip. She denies CP or SOB. Objective - Vital Signs Vital signs: Vital Signs Temp 98.6 F 04/30/18 01:12 Pulse 94 04/30/18 01:12 Resp 16 04/30/18 01:12 BP 135/70 04/30/18 01:12 Pulse Ox 95 04/30/18 01:12 Intake & Output 04/29/18 04/30/18 04/30/18 18:59 06:59 18:59 Intake Total 1075 750 120 Output Total 300 175 Balance 775 575 120 Intake: IV 725 Intake, IV Titration 350 400 Amount Sodium Chloride 0.9% 1, 350 400 000 ml @ 50 mls/hr IV . Q20H [facility] Rx#:[id number] Oral 350 120 Output: Urine 150 175 Estimated Blood Loss 150 Other: Voiding Method Indwelling Catheter Indwelling Catheter - Exam The patient is alert and able to answer questions. A focused exam of the left LE was conducted. There is a hip abduction pillow in place. The dressing over the lateral aspect of her hip is clean and dry. Her thigh is soft. She is able to actively PF and DF her ankles and toes. Her foot is warm and well-perfused. - Labs CBC & Chem 7: 04/29/18 08:09 04/28/18 08:44 Labs: Abnormal Lab Results - Last 24 Hours (Table) 04/29/18 Range/Units 08:09 MCV 100.3 H (80.0-100.0) fL Lymphocytes # 0.8 L (1.0-4.8) k/uL Assessment and Plan Plan: POD#1 s/p cemented hip hemiarthoplasty 1. WBAT operative extremity 2. Posterior hip precautions and hip abduction pillow x 6weeks 3. 2 doses of post-operative antibiotics. 4. Will defer to IM regarding choice of DVT prophylaxis and duration of treatment due to her history of prior PE. I generally use lovenox 40mg daily x 4 weeks following operative fixation of a geriatric hip fracture. 5. Bone health pending 6. Dispo planning.
[2018-04-30] MEDS ORDERED: SODIUM CHLORIDE 0.9% 500 ML IV ONE (14:46)
[2018-04-30] MEDS: DIAZEPAM 5 MG TAB PO PRN (15:44)
[2018-04-30] MEDS: SODIUM CHLORIDE 0.9% 1,000 ML IV SCH ×3 (17:04→20:47)
[2018-04-30] MEDS ORDERED: WARFARIN 5 MG TAB PO ONE (18:00)
[2018-04-30] MEDS ORDERED: HYDROmorphone 2 MG TAB PO PRN ×3 (19:04→19:17)
--- NOTE | 2018-04-30 19:34 | XR ---
EXAMINATION TYPE: XR ankle limited LT DATE OF EXAM: 04/30/2018 COMPARISON: None HISTORY: Pain and bruising TECHNIQUE: 2 view left ankle FINDINGS: There is soft tissue swelling over the distal foreleg. The ankle mortise is visualized appe ars intact. No acute displaced fractures are identified. IMPRESSION: 1. No acute fractures left ankle. 2. Soft tissue swelling distal foreleg
--- NOTE | 2018-04-30 19:57 | PN ---
PROGRESS NOTE SUBJECTIVE: An 87-year-old female left status post left hip surgery, doing well. She is not short of breath or having any chest pain today. Her vital signs: Temp 97.8, pulse 75, respiratory 16-18, O2 98% on 1 L. ASSESSMENT: Status post on Coumadin treatment postop hip surgery. Hemoglobin stable at 13.4. INR is 0. She is on Coumadin protocol. Continue current PT/OT. Possible rehab center depending on patient's improvement. MMDINOL / IJN: [id number] /
[2018-04-30] MEDS: SENNOSIDES-DOCUSATE SODIUM 1 EACH TAB PO SCH (20:47)
[2018-05-01 07:08] LABS: Basophils % (A) 0 %; Eosinophils # (A) 0.1 k/uL (0-0.7); Eosinophils % (A) 1 %; HCT 35.3 % (34.0-46.0); HGB 10.8 gm/dL (11.4-16.0); Hypochromasia Slight; Lymphocytes % (A) 18 %; MCH 30.8 pg (25.0-35.0); MCHC 30.6 g/dL (31.0-37.0); MCV 100.6 fL (80.0-100.0); Mean Platelet Volume 7.7; Monocytes # (A) 0.4 k/uL (0-1.0); Monocytes % (A) 7 %; Neutrophils % (A) 72 %; Platelet Count 202 k/uL (150-450); RBC 3.51 m/uL (3.80-5.40); RDW 12.9 % (11.5-15.5); WBC 5.6 k/uL (3.8-10.6)
[2018-05-01 07:15] LABS: INR 1.6 (<1.2); Prothrombin Time 15.1 sec (9.0-12.0)
[2018-05-01] MEDS: HYDROcodone/APAP 5-325MG 1 EACH TAB PO PRN ×2 (08:28→14:55)
[2018-05-01] MEDS: HEPARIN SODIUM,PORCINE 5,000 UNIT/ML 1 ML VIAL SQ SCH ×2 (08:29→22:39)
[2018-05-01] MEDS: amLODIPine 5 MG TAB PO SCH (08:29)
[2018-05-01] MEDS: ATORVASTATIN 20 MG TAB PO SCH (08:29)
--- NOTE | 2018-05-01 13:12 | P.PN ---
Subjective This is an 87-year-old female who is status post left hip hemiarthroplasty. This is postoperative day #2. Patient states that her pain is under control and she is supposed to work on transfers to a chair with physical therapy today. Patient denies any new symptoms or complaints. Patient denies any fever/ chills, numbness, weakness, tingling, abdominal pain, shortness of breath or chest pain. Objective - Vital Signs Vital signs: Vital Signs Temp 98.1 F 05/01/18 01:38 Pulse 75 05/01/18 01:38 Resp 15 05/01/18 01:38 BP 134/82 05/01/18 01:38 Pulse Ox 94 L 05/01/18 01:38 Intake & Output 04/30/18 05/01/18 05/01/18 18:59 06:59 18:59 Intake Total 1678 100 100 Output Total 580 Balance 1678 -480 100 Weight 51.256 kg Intake: Intake, IV Titration 950 Amount Sodium Chloride 0.9% 1, 450 000 ml @ 50 mls/hr IV . Q20H [facility] Rx#:[id number] Sodium Chloride 0.9% 500 500 ml @ 999 mls/hr IV .Q31M [facility] Rx#:[id number] Oral 728 100 100 Output: Urine 580 Other: Voiding Method Indwelling Catheter Indwelling Catheter Indwelling Catheter # Voids 2 - Exam On exam patient is alert and oriented 3 and sitting up in bed in no acute distress. Abductor pillow is in place. Patient has full foot and ankle motion without pain or difficulty. Dressing is clean, dry and intact. Calf is soft and nontender to palpation. Left lower extremity is warm and well perfused. Neurovascular status and circulatory status are intact. - Labs CBC & Chem 7: 05/01/18 06:15 04/28/18 08:44 Labs: Abnormal Lab Results - Last 24 Hours (Table) 04/30/18 05/01/18 05/01/18 Range/Units 06:35 06:15 06:15 RBC 3.51 L (3.80-5.40) m/uL Hgb 10.8 L (11.4-16.0) gm/dL MCV 100.6 H (80.0-100.0) fL MCHC 30.6 L (31.0-37.0) g/dL PT 15.1 H (9.0-12.0) sec INR 1.6 H (<1.2) Vitamin D 25-Hydroxy <4.2 L (30.0-100.0) ng/mL Assessment and Plan (1) Status post hip hemiarthroplasty Current Visit: Yes Status: Acute Code(s): Z96.649 - PRESENCE OF UNSPECIFIED ARTIFICIAL HIP JOINT SNOMED Code(s): 185931598 (2) Fall Current Visit: Yes Status: Acute Code(s): W19.XXXA - UNSPECIFIED FALL, INITIAL ENCOUNTER SNOMED Code(s): 5903658 (3) Hip fracture, left Current Visit: Yes Status: Acute Code(s): S72.002A - FRACTURE OF UNSP PART OF NECK OF LEFT FEMUR, INIT SNOMED Code(s): 815836155 Plan: Continue routine postop care. Continue hip precautions with abductor pillow. Continue antocoagulation. Weightbearing as tolerated with a walker Daily dressing changes. Likely discharge to rehab tomorrow.
[2018-05-01] MEDS ORDERED: WARFARIN 5 MG TAB PO ONE (18:00)
[2018-05-01] MEDS: SYMBICORT 160-4.5 MCG INHALER INHALATION PRN (19:45)
[2018-05-01] MEDS: SODIUM CHLORIDE 0.9% 1,000 ML IV SCH ×3 (22:16→22:17)
[2018-05-01] MEDS: SENNOSIDES-DOCUSATE SODIUM 1 EACH TAB PO SCH (22:38)
--- NOTE | 2018-05-01 22:40 | PN ---
PROGRESS NOTE SUBJECTIVE: This is an 87-year-old white female, status post hip surgery. She was given fluid boluses yesterday for hypotension. She has a bit of nausea this morning, not eating well. Zofran is being given. Possibly normal saline pulses will be given depending on oral intake. She remains on Lipitor and Norvasc she takes at home. At this time nursing staff states she is eating better today and drinking fluid. No longer nauseous or vomiting. Her temp is 98, pulse 75, respirations 15, blood pressure is 104 to 134 over 50s to 80s, 97% on room air. ASSESSMENT: 1. Hypertension. 2. Dyslipidemia. 3. Hip fracture. 4. Obesity. 5. Multiple chronic illnesses including multiple cancers in the past. Patient is strong. She may need a physical therapy halfway. MMODL / IJN: [id number] /
[2018-05-02] MEDS: SODIUM CHLORIDE 0.9% 1,000 ML IV SCH ×5 (02:58→18:18)
[2018-05-02 07:11] LABS: INR 3.1 (<1.2); Prothrombin Time 28.2 sec (9.0-12.0)
[2018-05-02 07:14] LABS: ALT 23 U/L (9-52); AST 18 U/L (14-36); Albumin 2.7 g/dL (3.5-5.0); Alkaline Phosphatase 68 U/L (38-126); Anion Gap 5 mmol/L; Blood Urea Nitrogen 14 mg/dL (7-17); Calcium 9.2 mg/dL (8.4-10.2); Carbon Dioxide 27 mmol/L (22-30); Chloride 103 mmol/L (98-107); Glucose 97 mg/dL (74-99); Sodium 135 mmol/L (137-145); Total Bilirubin 0.4 mg/dL (0.2-1.3); Total Protein 4.9 g/dL (6.3-8.2)
[2018-05-02 07:20] LABS: Basophils % (A) 0 %; Eosinophils # (A) 0.1 k/uL (0-0.7); Eosinophils % (A) 1 %; HCT 33.1 % (34.0-46.0); HGB 11.2 gm/dL (11.4-16.0); Lymphocytes # (A) 0.7 k/uL (1.0-4.8); Lymphocytes % (A) 8 %; MCH 32.8 pg (25.0-35.0); MCV 96.4 fL (80.0-100.0); Mean Platelet Volume 6.8; Monocytes # (A) 0.4 k/uL (0-1.0); Monocytes % (A) 5 %; Neutrophils % (A) 86 %; Platelet Count 238 k/uL (150-450); RBC 3.43 m/uL (3.80-5.40); RDW 12.7 % (11.5-15.5); WBC 9.3 k/uL (3.8-10.6)
--- NOTE | 2018-05-02 09:33 | P.DS ---
Providers Date of admission: 04/28/18 08:47 Expected date of discharge: 05/02/18 Attending physician: Mic Sebastian Consults: 04/28/18 08:52 Consult Physician Stat Consulting Provider: Luciano Novak Consult Reason/Comments: Surgical clearance Do you want consulting provider notified?: Yes 04/29/18 12:45 Consult Physician Routine Consulting Provider: Luciano Novak Consult Reason/Comments: post op anticoagulation Do you want consulting provider notified?: Yes Primary care physician: Abdoulaye Dunbar - Discharge Diagnosis(es) (1) Fall Current Visit: Yes Status: Acute (2) Hip fracture, left Current Visit: Yes Status: Acute Hospital Course: This is an 87 year old female who presented to the hospital post fall at home and sustained a left hip fracture. The patient was cleared by medicine for surgery. The patient underwent a left hip hemiarthroplasty on 04/29/[address] Sebastian. The procedure was performed without complication or sequelae. The patient is doing well postoperatively. Labs and vital signs are stable on the day of discharge. On the day of discharge the patient's hip incision is healing well. There is minimal erythema. There is no drainage noted at this time. There is minimal soft tissue swelling to the hip and thigh. The patient has full foot and ankle motion without difficulty or pain. Neurovascular status to the left lower extremity is intact. The patient is discharged to skilled rehab in good condition. Pertinent Studies: Laboratory Tests 05/02/18 05/02/18 05/02/18 06:52 06:52 06:52 WBC 9.3 RBC 3.43 L Hgb 11.2 L Hct 33.1 L Neutrophils # 8.0 H Lymphocytes # 0.7 L PT 28.2 H INR 3.1 H Sodium 135 L Total Protein 4.9 L Albumin 2.7 L Patient Condition at Discharge: Stable Plan - Discharge Summary Discharge Rx Participant: Yes New Discharge Prescriptions: New Calcium Carbonate [Tums] 500 mg PO TID #90 chewable Cholecalciferol [Vitamin D3] 2,000 unit PO DAILY #90 tablet HYDROcodone/APAP 5-325MG [[place] 5] 1 - 2 each PO Q4-6H PRN #84 tab PRN Reason: Pain Sennosides-Docusate Sodium [Senokot-S] 2 tab PO DAILY #30 tablet No Action amLODIPine [Norvasc] 5 mg PO DAILY Atorvastatin [Lipitor] 20 mg PO DAILY Discharge Medication List Atorvastatin [Lipitor] 20 mg PO DAILY 10/02/16 [History] amLODIPine [Norvasc] 5 mg PO DAILY 10/02/16 [History] Calcium Carbonate [Tums] 500 mg PO TID #90 chewable 05/02/18 [Rx] Cholecalciferol [Vitamin D3] 2,000 unit PO DAILY #90 tablet 05/02/18 [Rx] HYDROcodone/APAP 5-325MG [[place] 5] 1 - 2 each PO Q4-6H PRN #84 tab 05/02/18 [Rx] Sennosides-Docusate Sodium [Senokot-S] 2 tab PO DAILY #30 tablet 05/02/18 [Rx] Follow up Appointment(s)/Referral(s): Abdoulaye Dunbar MD [Primary Care Provider] - 1-2 days Mic Sebastian MD [Medical Doctor] - 4 Weeks Activity/Diet/Wound Care/Special Instructions: Weightbearing as tolerated with walker Follow hip precautions and use abductor pillow as instructed Daily dressing changes Keep incision clean and dry Coumadin per internal medicine Call [facility] with questions or concerns [phone]. Discharge Disposition: TRANSFER TO SNF/ECF
[2018-05-02] MEDS: ATORVASTATIN 20 MG TAB PO SCH (11:23)
[2018-05-02] MEDS: HEPARIN SODIUM,PORCINE 5,000 UNIT/ML 1 ML VIAL SQ SCH ×2 (11:23→20:28)
[2018-05-02] MEDS: amLODIPine 5 MG TAB PO SCH (11:28)
[2018-05-02] MEDS: HYDROcodone/APAP 5-325MG 1 EACH TAB PO PRN ×2 (15:01→22:57)
[2018-05-02] MEDS ORDERED: WARFARIN 0.5 MG TAB PO ONE (18:00)
[2018-05-02] MEDS: SENNOSIDES-DOCUSATE SODIUM 1 EACH TAB PO SCH (20:27)
--- NOTE | 2018-05-02 22:32 | PN ---
PROGRESS NOTE SUBJECTIVE: An 87-year-old white female with left hip fracture, status post surgery. She has had orthostatic hypotension. Her fluid was given at 75 mL an hour of normal saline today due to orthostatic hypotension. Eating and drinking is improving slowly. CARDIOVASCULAR: S1, S2. LUNGS: Clear. GI: Soft. HEMATOLOGY: Negative Indira's. ASSESSMENT: 1. Left hip fracture. 2. Orthostatic hypotension. 3. History of multiple cancers. 4. Hypertension. Continue current treatment, IV fluids overnight. PT and OT, possible rehab at [facility]. MMDINOL / IJN: [id number] /
[2018-05-03] MEDS: SODIUM CHLORIDE 0.9% 1,000 ML IV SCH ×4 (04:07→21:46)
[2018-05-03] MEDS: HYDROcodone/APAP 5-325MG 1 EACH TAB PO PRN ×2 (05:45→19:20)
[2018-05-03 07:08] LABS: INR 2.5 (<1.2); Prothrombin Time 22.8 sec (9.0-12.0)
[2018-05-03] MEDS: amLODIPine 5 MG TAB PO SCH (09:03)
[2018-05-03] MEDS: ATORVASTATIN 20 MG TAB PO SCH (09:03)
[2018-05-03] MEDS: HEPARIN SODIUM,PORCINE 5,000 UNIT/ML 1 ML VIAL SQ SCH ×2 (09:03→21:46)
[2018-05-03] MEDS ORDERED: WARFARIN 2.5 MG TAB PO ONE (18:00)
[2018-05-03] MEDS: SENNOSIDES-DOCUSATE SODIUM 1 EACH TAB PO SCH (21:46)
[2018-05-04] MEDS: SODIUM CHLORIDE 0.9% 1,000 ML IV SCH (00:14)
[2018-05-04] MEDS: HYDROcodone/APAP 5-325MG 1 EACH TAB PO PRN ×2 (00:26→04:23)
[2018-05-04 03:52] VITALS: RESP 16
--- NOTE | 2018-05-04 06:03 | PN ---
PROGRESS NOTE SUBJECTIVE: An 87-year-old white female status post left hip fracture. Hypotension is improved. We will stop the IV normal saline as blood pressure is more controlled. CARDIOVASCULAR: S1, S2. LUNGS: Clear. Left hip decreased range of motion. ASSESSMENT: 1. Left hip fracture. 2. Hypertension with hypotension. 3. Multiple history of cancer. Continue current treatment. The patient is improving. PT, OT. Hemoglobin is improved. Possible halfway placement. MMODL / IJN: [id number] /
[2018-05-04 07:28] LABS: INR 2.4 (<1.2)
[2018-05-04] MEDS: SYMBICORT 160-4.5 MCG INHALER INHALATION PRN (08:21)
[2018-05-04] MEDS: amLODIPine 5 MG TAB PO SCH (09:40)
[2018-05-04] MEDS: ATORVASTATIN 20 MG TAB PO SCH (09:40)
[2018-05-04] MEDS: HEPARIN SODIUM,PORCINE 5,000 UNIT/ML 1 ML VIAL SQ SCH (09:40)
[2018-05-04] MEDS: DIAZEPAM 5 MG TAB PO PRN (13:30)
--- NOTE | 2018-05-04 13:45 | P.PN ---
Subjective Progress Note Date: 05/04/18 Principal diagnosis: Status post left hip hemiarthroplasty Patient is status post left hip hemiarthroplasty for hip fracture performed on 05/09/2018. She is seen at bedside this morning. She has pain at surgical site as expected. She has no new complaints. She denies numbness, tingling, calf pain, fever, chills, chest pain or shortness of breath. Objective - Vital Signs Vital signs: Vital Signs Temp 96.9 F L 05/04/18 08:00 Pulse 87 05/04/18 08:00 Resp 16 05/04/18 08:00 BP 128/60 05/04/18 08:00 Pulse Ox 93 L 05/04/18 08:00 Intake & Output 05/03/18 05/04/18 05/04/18 18:59 06:59 18:59 Intake Total 600 940 Balance 600 940 Intake: Intake, IV Titration 600 Amount Sodium Chloride 0.9% 1, 600 000 ml @ 75 mls/hr IV . [id number] MANDI Rx#:[id number] Oral 940 Other: # Voids 2 2 - Exam Inspection of the left lower leg shows benign surgical wound. There is no active bleeding or drainage. There is no deformity. Neurovascular status is intact with motor and sensation throughout the left lower leg. Calf is soft and nontender. 2+ dorsalis pedis pulse and less than 2 second cap refill is present. - Constitutional General appearance: Present: no acute distress - Psychiatric Psychiatric: Present: A&O x's 3, appropriate affect, intact judgment & insight - Labs CBC & Chem 7: 05/02/18 06:52 05/02/18 06:52 Labs: Abnormal Lab Results - Last 24 Hours (Table) 05/04/18 Range/Units 06:32 PT 22.0 H (9.0-12.0) sec INR 2.4 H (<1.2) Assessment and Plan (1) Hip fracture, left Narrative/Plan: She is scheduled to transfer to extended care facility today. She may be weightbearing as tolerated with walker. Continue with wound care, physical therapy, pain management, medical management and DVT prophylaxis. She'll follow up with Dr. Sebastian as an outpatient. Current Visit: Yes Status: Acute Priority: Medium Code(s): S72.002A - FRACTURE OF UNSP PART OF NECK OF LEFT FEMUR, INIT SNOMED Code(s): 658842505 Time with Patient: Less than 30
[2018-05-04 15:30] VITALS: BP 126/76; PULSE 79; TEMP 98.2
[2018-05-04] MEDS ORDERED: WARFARIN 2.5 MG TAB PO ONE (18:00)
--- NOTE | 2018-05-04 19:54 | PN ---
PROGRESS NOTE SUBJECTIVE: This is an 87-year-old white female with a left fracture in a fall. Hypertension is stable. Orthostatic changes are negative. Remains on Coumadin 2.5 mg a day. Will go to rehab at [facility] today. CARDIOVASCULAR: S1, S2. LUNGS: Clear. GI: Soft. MUSCULOSKELETAL: Left hip minimal movement. Sitting up in a chair. ASSESSMENT: 1. Left hip fracture. 2. Hypertension. 3. Orthostatic hypotension. 4. Coumadin treatment. Continue with Coumadin 2.5 mg daily. PT/OT. MMODL / IJN: [id number] /
== END 2018-05-04 18:00 | DRG 470 ==
LOC: EC 08:04 → 3SUR 08:47
PROVIDERS: ADMIT Orthopaedic Surgery; ATTEND Orthopaedic Surgery
PROC: 0SRS019 Replacement of Left Hip Joint, Femoral Surface with Metal Synthetic Substitute, Cemented, Open Approach (ICD-10-PCS; principal; 2018-04-28)
DX: S72.012A Unspecified intracapsular fracture of left femur, initial encounter for closed fracture (principal); J44.9 Chronic obstructive pulmonary disease, unspecified; I95.1 Orthostatic hypotension; E66.9 Obesity, unspecified; E78.5 Hyperlipidemia, unspecified; H91.90 Unspecified hearing loss, unspecified ear; M19.91 Primary osteoarthritis, unspecified site; I10 Essential (primary) hypertension; Z68.21 Body mass index [BMI] 21.0-21.9, adult; Z85.41 Personal history of malignant neoplasm of cervix uteri; Z79.51 Long term (current) use of inhaled steroids; Z79.82 Long term (current) use of aspirin; Z79.899 Other long term (current) drug therapy; Z87.891 Personal history of nicotine dependence; Z85.3 Personal history of malignant neoplasm of breast; Z85.828 Personal history of other malignant neoplasm of skin; Z85.72 Personal history of non-Hodgkin lymphomas; Z85.028 Personal history of other malignant neoplasm of stomach; Z86.19 Personal history of other infectious and parasitic diseases; Z86.711 Personal history of pulmonary embolism; Z87.440 Personal history of urinary (tract) infections; Z95.828 Presence of other vascular implants and grafts; Z90.13 Acquired absence of bilateral breasts and nipples; Z90.710 Acquired absence of both cervix and uterus; Z98.42 Cataract extraction status, left eye; Z98.41 Cataract extraction status, right eye; W18.11XA Fall from or off toilet without subsequent striking against object, initial encounter; Y92.002 Bathroom of unspecified non-institutional (private) residence as the place of occurrence of the external cause; Z82.3 Family history of stroke; Z82.49 Family history of ischemic heart disease and other diseases of the circulatory system
CPT/HCPCS: 36415; 70450; 71045; 72125; 73501; 73502; 80053; 81001; 82306; 85025; 85610; 85730; 86850; 86900; 86901; 88305; 88311; 93005; 94640; 96374; 99285

== ENCOUNTER 2018-07-16 11:16 | Emergency (ER) | payer MEDICARE ==
[2018-07-16] MEDS ORDERED: SODIUM CHLORIDE 0.9% 1,000 ML IV STA (11:34)
[2018-07-16] MEDS ORDERED: ONDANSETRON 4 MG/2 ML VIAL IVP STA (11:34)
[2018-07-16] MEDS ORDERED: methylPREDNISolone SOD SUCCI 125 MG/2 ML VIAL IV STA (11:35)
[2018-07-16] MEDS ORDERED: DIAZEPAM 5 MG/ML 2 ML INJ IVP STA (11:37)
[2018-07-16 11:54] LABS: Basophils % (A) 1 %; Eosinophils # (A) 0.1 k/uL (0-0.7); Eosinophils % (A) 1 %; HGB 12.1 gm/dL (11.4-16.0); Lymphocytes # (A) 1.6 k/uL (1.0-4.8); Lymphocytes % (A) 24 %; MCH 30.2 pg (25.0-35.0); MCV 94.5 fL (80.0-100.0); Mean Platelet Volume 7.1; Monocytes # (A) 0.4 k/uL (0-1.0); Monocytes % (A) 6 %; Neutrophils # (A) 4.4 k/uL (1.3-7.7); Neutrophils % (A) 66 %; Platelet Count 254 k/uL (150-450); RBC 4.02 m/uL (3.80-5.40); RDW 13.9 % (11.5-15.5); WBC 6.6 k/uL (3.8-10.6)
--- NOTE | 2018-07-16 11:58 | ED ---
Dizziness HPI - General Chief Complaint: Dizziness Stated Complaint: vertigo Time Seen by Provider: 07/16/18 11:18 Source: patient, RN notes reviewed, old records reviewed Mode of arrival: EMS Limitations: no limitations - History of Present Illness Initial Comments: This is an 88-year-old female to the ER for evaluation of weakness and dizziness. Patient does have history of vertigo. She also denies any recent history of trauma, no headache. Patient awoke with symptoms today. Patient's remote history includes hip surgery, she had successful rehabilitation is been living on her own. No recent fevers. No shortness breath cough or congestion. She did take Antivert, meclizine before coming to the emergency room today with no improvement in symptoms MD Complaint: dizziness, difficulty walking (Vertigo) -: hour(s) Timing: awoke with symptoms Description: sense of movement, "room spinning", off-balance, difficulty walking History of Same: Yes History of Trauma: No Severity: severe Improves With: nothing, remaining still Worsens With: movement Associated Symptoms: ataxia - Related Data Home Medications Medication Instructions Recorded Confirmed amLODIPine [Norvasc] 5 mg PO DAILY 10/02/16 07/16/18 Meclizine [Antivert] 25 mg PO DIRECTED PRN 07/16/18 07/16/18 Previous Rx's Medication Instructions Recorded HYDROcodone/APAP 5-325MG [[place] 5] 1 - 2 each PO Q4-6H PRN #84 tab 05/02/18 Allergies Allergy/AdvReac Type Severity Reaction Status Date / Time No Known Allergies Allergy Verified 07/16/18 11:26 Review of Systems ROS Statement: Those systems with pertinent positive or pertinent negative responses have been documented in the HPI. ROS Other: All systems not noted in ROS Statement are negative. Past Medical History Past Medical History: Cancer, COPD, Hearing Disorder / Deafness, Hyperlipidemia , Hypertension, Pulmonary Embolus (PE) Additional Past Medical History / Comment(s): cervical ca, lymphoma, bilateral breast cancer, skin cancer, STOMACH CANCER, HX HEPATITIS A CHILD, VERTIgO, AAA(UNK SIZE), UTI, EATS SMALL FREQ MEALS D/T HAVING 2/3 STOMACH REMOVED. AORTIC ANEURYSM WITH AORTIC STENT, Arhtritis History of Any Multi-Drug Resistant Organisms: None Reported Past Surgical History: Hysterectomy Additional Past Surgical History / Comment(s): 2/3 stomach removed, bilateral masectomy, skin cancer removal, ETHAN CATARACTS, trigger finger left hand, stent to AAA Past Anesthesia/Blood Transfusion Reactions: Motion Sickness Additional Past Anesthesia/Blood Transfusion Reaction / Comment(s): VERTIGO Past Psychological History: No Psychological Hx Reported Smoking Status: Former smoker Past Alcohol Use History: Daily Past Drug Use History: None Reported - Past Family History Mother Family Medical History: CVA/TIA Additional Family Medical History / Comment(s): AGE 94 IN HER SLEEP. Father Family Medical History: Myocardial Infarction ([place]) Additional Family Medical History / Comment(s): FROM [place] AGE 55 General Exam Limitations: no limitations General appearance: alert, in no apparent distress Head exam: Present: atraumatic, normocephalic, normal inspection Eye exam: Present: normal appearance, PERRL, EOMI, nystagmus ( ). Absent: scleral icterus, conjunctival injection, periorbital swelling ENT exam: Present: normal exam, mucous membranes moist Neck exam: Present: normal inspection. Absent: tenderness, meningismus, lymphadenopathy Respiratory exam: Present: normal lung sounds bilaterally. Absent: respiratory distress, wheezes, rales, rhonchi, stridor Cardiovascular Exam: Present: regular rate, normal rhythm, normal heart sounds. Absent: systolic murmur, diastolic murmur, rubs, gallop, clicks GI/Abdominal exam: Present: soft, normal bowel sounds. Absent: distended, tenderness, guarding, rebound, rigid Extremities exam: Present: normal inspection, full ROM, normal capillary refill. Absent: tenderness, pedal edema, joint swelling, calf tenderness Back exam: Present: normal inspection Neurological exam: Present: alert, oriented X3, CN II-XII intact Psychiatric exam: Present: normal affect, normal mood Skin exam: Present: warm, dry, intact, normal color. Absent: rash Course Vital Signs 07/16/18 07/16/18 07/16/18 11:22 11:45 12:30 Temperature 98.4 F Pulse Rate 75 68 63 Respiratory 18 16 16 Rate Blood Pressure 152/88 134/64 133/73 O2 Sat by Pulse 96 98 100 Oximetry 07/16/18 14:00 Temperature 98.3 F Pulse Rate 79 Respiratory 22 Rate Blood Pressure 135/65 O2 Sat by Pulse 100 Oximetry - Reevaluation(s) Reevaluation #1: 07/16/18 11:58 Medical record is reviewed Reevaluation #2: 07/16/18 11:58 Patient is improved mild sedation EKG Findings - EKG Comments: EKG Findings:: ED shows normal sinus rhythm rate of 71, LA 180, QRS 90, QTc 434 Medical Decision Making - Medical Decision Making 88 female the ER for evaluation dizziness vertigo, patient feels like her symptoms are improved, resolved currently. Computed tomography scan is negative patient's able to ambulate without difficulty and can be discharged home - Lab Data Result diagrams: 07/16/18 11:40 07/16/18 11:40 Lab Results 07/16/18 07/16/18 07/16/18 Range/Units 11:40 11:40 11:40 WBC 6.6 (3.8-10.6) k/uL RBC 4.02 (3.80-5.40) m/uL Hgb 12.1 (11.4-16.0) gm/dL Hct 38.0 (34.0-46.0) % MCV 94.5 (80.0-100.0) fL MCH 30.2 (25.0-35.0) pg MCHC 32.0 (31.0-37.0) g/dL RDW 13.9 (11.5-15.5) % Plt Count 254 (150-450) k/uL Neutrophils % 66 % Lymphocytes % 24 % Monocytes % 6 % Eosinophils % 1 % Basophils % 1 % Neutrophils # 4.4 (1.3-7.7) k/uL Lymphocytes # 1.6 (1.0-4.8) k/uL Monocytes # 0.4 (0-1.0) k/uL Eosinophils # 0.1 (0-0.7) k/uL Basophils # 0.0 (0-0.2) k/uL PT (9.0-12.0) sec INR (<1.2) APTT (22.0-30.0) sec Sodium 138 (137-145) mmol/L Potassium 3.9 (3.5-5.1) mmol/L Chloride 105 (98-107) mmol/L Carbon Dioxide 24 (22-30) mmol/L Anion Gap 9 mmol/L BUN 22 H (7-17) mg/dL Creatinine 0.81 (0.52-1.04) mg/dL Est GFR (CKD-EPI)AfAm 76 (>60 ml/min/1.73 sqM) Est GFR (CKD-EPI)NonAf 66 (>60 ml/min/1.73 sqM) Glucose 99 (74-99) mg/dL Calcium 9.5 (8.4-10.2) mg/dL Phosphorus 3.2 (2.5-4.5) mg/dL Magnesium 2.1 (1.6-2.3) mg/dL Total Bilirubin 0.3 (0.2-1.3) mg/dL AST 17 (14-36) U/L ALT 11 (9-52) U/L Alkaline Phosphatase 79 (38-126) U/L Total Creatine Kinase 30 (30-135) U/L CK-MB (CK-2) 0.6 (0.0-2.4) ng/mL CK-MB (CK-2) Rel Index 2.0 Troponin I <0.012 (0.000-0.034) ng/mL Total Protein 5.7 L (6.3-8.2) g/dL Albumin 3.1 L (3.5-5.0) g/dL Urine Color Urine Appearance (Clear) Urine pH (5.0-8.0) Ur Specific [place] (1.001-1.035) Urine Protein (Negative) Urine Glucose (UA) (Negative) Urine Ketones (Negative) Urine Blood (Negative) Urine Nitrite (Negative) Urine Bilirubin (Negative) Urine Urobilinogen (<2.0) mg/dL Ur Leukocyte Esterase (Negative) 07/16/18 07/16/18 Range/Units 11:40 13:25 WBC (3.8-10.6) k/uL RBC (3.80-5.40) m/uL Hgb (11.4-16.0) gm/dL Hct (34.0-46.0) % MCV (80.0-100.0) fL MCH (25.0-35.0) pg MCHC (31.0-37.0) g/dL RDW (11.5-15.5) % Plt Count (150-450) k/uL Neutrophils % % Lymphocytes % % Monocytes % % Eosinophils % % Basophils % % Neutrophils # (1.3-7.7) k/uL Lymphocytes # (1.0-4.8) k/uL Monocytes # (0-1.0) k/uL Eosinophils # (0-0.7) k/uL Basophils # (0-0.2) k/uL PT 10.4 (9.0-12.0) sec INR 1.1 (<1.2) APTT 20.9 L (22.0-30.0) sec Sodium (137-145) mmol/L Potassium (3.5-5.1) mmol/L Chloride (98-107) mmol/L Carbon Dioxide (22-30) mmol/L Anion Gap mmol/L BUN (7-17) mg/dL Creatinine (0.52-1.04) mg/dL Est GFR (CKD-EPI)AfAm (>60 ml/min/1.73 sqM) Est GFR (CKD-EPI)NonAf (>60 ml/min/1.73 sqM) Glucose (74-99) mg/dL Calcium (8.4-10.2) mg/dL Phosphorus (2.5-4.5) mg/dL Magnesium (1.6-2.3) mg/dL Total Bilirubin (0.2-1.3) mg/dL AST (14-36) U/L ALT (9-52) U/L Alkaline Phosphatase (38-126) U/L Total Creatine Kinase (30-135) U/L CK-MB (CK-2) (0.0-2.4) ng/mL CK-MB (CK-2) Rel Index Troponin I (0.000-0.034) ng/mL Total Protein (6.3-8.2) g/dL Albumin (3.5-5.0) g/dL Urine Color Yellow Urine Appearance Clear (Clear) Urine pH 5.5 (5.0-8.0) Ur Specific [place] 1.011 (1.001-1.035) Urine Protein Negative (Negative) Urine Glucose (UA) Negative (Negative) Urine Ketones Negative (Negative) Urine Blood Negative (Negative) Urine Nitrite Negative (Negative) Urine Bilirubin Negative (Negative) Urine Urobilinogen <2.0 (<2.0) mg/dL Ur Leukocyte Esterase Negative (Negative) - Radiology Data Radiology results: report reviewed (ET brain is negative for acute disease), image reviewed Disposition Clinical Impression: Dehydration, Dizziness Disposition: HOME SELF-CARE Condition: Good Instructions: Dizziness (ED) Is patient prescribed a controlled substance at d/c from ED?: No Referrals: Abdoulaye Dunbar MD [Primary Care Provider] - 1-2 days
[2018-07-16 12:03] LABS: Albumin 3.1 g/dL (3.5-5.0); Calcium 9.5 mg/dL (8.4-10.2); Magnesium 2.1 mg/dL (1.6-2.3); Phosphorus 3.2 mg/dL (2.5-4.5); Potassium 3.9 mmol/L (3.5-5.1); Total Bilirubin 0.3 mg/dL (0.2-1.3); Total Protein 5.7 g/dL (6.3-8.2)
[2018-07-16 12:09] LABS: INR 1.1 (<1.2); Prothrombin Time 10.4 sec (9.0-12.0)
[2018-07-16 12:14] LABS: Creatine Kinase 30 U/L (30-135)
[2018-07-16 12:17] LABS: Partial Thromboplastin Time 20.9 sec (22.0-30.0)
[2018-07-16 12:27] LABS: Creatine Kinase MB 0.6 ng/mL (0.0-2.4); Troponin I <0.012 ng/mL (0.000-0.034)
--- NOTE | 2018-07-16 12:38 | XR ---
EXAMINATION TYPE: XR chest 2V DATE OF EXAM: 07/16/2018 HISTORY: Weakness. REFERENCE: Previous study dated 04/28/2018. FINDINGS: The lungs are overinflated. The heart is mildly enlarged. There is prominence of the right hilum. This may represent pulmonary artery hypertension. The lungs appear clear. Pleural spaces are c lear. IMPRESSION: 1. COPD. 2. MILD CARDIOMEGALY. 3. I CANNOT EXCLUDE SOME PULMONARY ARTERY HYPERTENSION.
--- NOTE | 2018-07-16 12:42 | CT ---
EXAMINATION TYPE: CT brain wo con DATE OF EXAM: 07/16/2018 COMPARISON: Previous study dated 04/28/2018 HISTORY: vertigo CT DLP: 1722.4 mGycm Automated exposure control for dose reduction was used. FINDINGS: There are generalized changes of sulcal prominence and ventriculomegaly, compatible with atrophic ellie nge. There is diffuse periventricular white matter lucency, compatible with chronic white matter isch emic change. There is no acute focal lesion, mass effect or midline shift identified. I do not see ev idence of intracranial blood. Visualized portions of the paranasal sinuses and mastoids are clear. The bony calvarium is intact. IMPRESSION: 1. NO ACUTE INTRACRANIAL ABNORMALITY. 2. DEGENERATIVE CHANGE.
[2018-07-16 14:06] LABS: Appearance,Urine Clear (Clear); Bilirubin,Urine Negative (Negative); Blood,Urine Negative (Negative); Color,Urine Yellow; Glucose,Urine (UA) Negative (Negative); Ketones,Urine Negative (Negative); Leukocyte Esterase,Urine Negative (Negative); Nitrite,Urine Negative (Negative); PH, Urine 5.5 (5.0-8.0); Protein,Urine Negative (Negative); Specific Gravity,Urine 1.011 (1.001-1.035); Urobilinogen,Urine <2.0 mg/dL (<2.0)
[2018-07-16 14:26] VITALS: BP 135/65; PULSE 79; RESP 22; TEMP 98.3
== END 2018-07-16 14:26 | disposition home or self-care (01) ==
LOC: EC 11:16
DX: E86.0 Dehydration (principal); R42 Dizziness and giddiness; R26.2 Difficulty in walking, not elsewhere classified; I10 Essential (primary) hypertension; Z79.899 Other long term (current) drug therapy; Z87.891 Personal history of nicotine dependence; Z86.711 Personal history of pulmonary embolism; Z85.3 Personal history of malignant neoplasm of breast; Z85.028 Personal history of other malignant neoplasm of stomach; Z85.41 Personal history of malignant neoplasm of cervix uteri
CPT/HCPCS: 36415; 93005; 80053; 82550; 82553; 83735; 84100; 84484; 85025; 85610; 85730; 81003; 87086; 71046; 70450; 99285; 96374; 96375 ×2; 96361; J2930; J3360; J2405; 87077; 87186

== ENCOUNTER 2018-12-05 17:55 | Emergency (ER) | payer MEDICARE ==
--- NOTE | 2018-12-05 16:13 | US ---
EXAMINATION TYPE: US venous doppler duplex LE LT DATE OF EXAM: 12/05/2018 3:46 PM COMPARISON: NONE CLINICAL HISTORY: R22.42 Swelling left lower. edema left lower leg SIDE PERFORMED: left TECHNIQUE: The lower extremity deep venous system is examined utilizing real time linear array sonog calvin with graded compression, doppler sonography and color-flow sonography. VESSELS IMAGED: External Iliac Vein (EIV) Common Femoral Vein Deep Femoral Vein Greater Saphenous Vein * Femoral Vein Popliteal Vein Small Saphenous Vein * Proximal Calf Veins (* superficial vessels) Left Leg: +Positive for DVT left EIV extending into popliteal vein. compressions deferred due to vis ualized thrombus IMPRESSION: 1. Findings compatible with a left lower extremity DVT as noted.
--- NOTE | 2018-12-05 18:02 | CT ---
EXAMINATION TYPE: CT angio chest DATE OF EXAM: 12/05/2018 COMPARISON: CTA chest October 14, 2016. HISTORY: Dyspnea. CT DLP: 91.1 mGycm. Automated Exposure Control for Dose Reduction was Utilized. CONTRAST: CTA scan of the thorax is performed with IV Contrast, patient injected with 45ml mL of Isovue 370, pu lmonary embolism protocol. MIP Images are created on CT scanner and reviewed. FINDINGS: LUNGS: There is significant respiratory motion artifact degradation making evaluation suboptimal part icularly for subcentimeter nodularity. Background mild underlying emphysematous change is felt presen t. No suspicious consolidation is seen. No concerning pulmonary masses are noted. No pleural effusion or pneumothorax is identified. MEDIASTINUM: There is satisfactory enhancement of the pulmonary artery and its branches, there is no CT evidence for pulmonary embolism. There are no greater than 1 cm hilar or mediastinal lymph nodes. No significant pericardial effusion is seen. Coronary artery calcification is present which is not ed marker for underlying coronary artery disease. Main pulmonary artery measures 3.3 cm at bifurcatio n axial image 62, CT findings consistent with underlying pulmonary artery hypertension. There is mode rate mixed plaque in the aortic arch with stenosis approaching but under 50% seen at origin of left s ubclavian artery. OTHER: There is metallic stent graft in the abdominal aorta partially imaged through partially imaged AAA. Osseous structures are demineralized. Exaggerated thoracic kyphosis is seen with moderate multi level anterior and lateral spurring. IMPRESSION: 1. Suboptimal study without CT evidence for acute pulmonary embolism. 2. Mild cardiomegaly and mild underlying emphysematous change without suspicious acute pulmonary proc ess. Evidence of underlying pulmonary artery hypertension once again noted.
[2018-12-05 18:07] VITALS: TEMP 98.1
--- NOTE | 2018-12-05 18:30 | ED ---
SOB HPI - General Chief Complaint: Shortness of Breath Time Seen by Provider: 12/05/18 18:24 Source: patient, RN notes reviewed, old records reviewed Mode of arrival: ambulatory Limitations: no limitations - History of Present Illness Initial Comments: This is a 88-year-old female sent to ER for evaluation regarding left lower extremity DVT new-onset. Patient also outpatient CT which is negative for PE. Patient does have history of underlying CVA sent to ER for evaluation regarding possible DVT. Patient denies shortness of breath. Is complaining of a for extremity edema. Has no prior history of DVT not currently on anticoagulation -: days(s) Severity: mild Consistency: constant Improves With: nothing Worsens With: nothing Associated Symptoms: denies other symptoms Treatments Prior to Arrival: none - Related Data Home Medications Medication Instructions Recorded Confirmed amLODIPine [Norvasc] 5 mg PO DAILY 10/02/16 12/05/18 ALPRAZolam [Xanax] 0.5 mg PO TID 12/05/18 12/05/18 Aspirin [Dooly Aspirin EC] 81 mg PO DAILY PRN 12/05/18 12/05/18 Cholecalciferol (Vitamin D3) 2,000 unit PO DAILY 12/05/18 12/05/18 [Vitamin D3] Methyl Salicylate/Menthol 1 patch TRANSDERM DAILY 12/05/18 12/05/18 [Salonpas Patch] SILVER sulfADIAZINE Cream 1 applic TOPICAL BID PRN 12/05/18 12/05/18 [Silvadene 1% Cream] Previous Rx's Medication Instructions Recorded Apixaban [Eliquis] 5 mg PO BID #60 tablet 12/05/18 Apixaban [Eliquis] 10 mg PO BID #28 tab 12/05/18 Allergies Allergy/AdvReac Type Severity Reaction Status Date / Time No Known Allergies Allergy Verified 12/05/18 19:21 Review of Systems ROS Statement: Those systems with pertinent positive or pertinent negative responses have been documented in the HPI. ROS Other: All systems not noted in ROS Statement are negative. Past Medical History Past Medical History: Cancer, COPD, Hearing Disorder / Deafness, Hyperlipidemia, Hypertension, Pulmonary Embolus (PE) Additional Past Medical History / Comment(s): cervical ca, lymphoma, bilateral breast cancer, skin cancer, STOMACH CANCER, HX HEPATITIS A CHILD, VERTIgO, AAA(UNK SIZE), UTI, EATS SMALL FREQ MEALS D/T HAVING 2/3 STOMACH REMOVED. AORTIC ANEURYSM WITH AORTIC STENT, Arhtritis History of Any Multi-Drug Resistant Organisms: None Reported Past Surgical History: Hysterectomy Additional Past Surgical History / Comment(s): 2/3 stomach removed, bilateral masectomy, skin cancer removal, ETHAN CATARACTS, trigger finger left hand, stent to AAA Past Anesthesia/Blood Transfusion Reactions: Motion Sickness Additional Past Anesthesia/Blood Transfusion Reaction / Comment(s): VERTIGO Past Psychological History: No Psychological Hx Reported Smoking Status: Former smoker Past Alcohol Use History: Daily Past Drug Use History: None Reported - Past Family History Mother Family Medical History: CVA/TIA Additional Family Medical History / Comment(s): AGE 94 IN HER SLEEP. Father Family Medical History: Myocardial Infarction ([place]) Additional Family Medical History / Comment(s): FROM [place] AGE 55 General Exam Limitations: no limitations General appearance: alert, in no apparent distress Head exam: Present: atraumatic, normocephalic, normal inspection Eye exam: Present: normal appearance, PERRL, EOMI. Absent: scleral icterus, conjunctival injection, periorbital swelling ENT exam: Present: normal exam, mucous membranes moist Neck exam: Present: normal inspection. Absent: tenderness, meningismus, lymphadenopathy Respiratory exam: Present: normal lung sounds bilaterally. Absent: respiratory distress, wheezes, rales, rhonchi, stridor Cardiovascular Exam: Present: regular rate, normal rhythm, normal heart sounds. Absent: systolic murmur, diastolic murmur, rubs, gallop, clicks GI/Abdominal exam: Present: soft, normal bowel sounds. Absent: distended, tenderness, guarding, rebound, rigid Extremities exam: Present: normal inspection, full ROM, normal capillary refill, other (Left lower extremity edema). Absent: tenderness, pedal edema, joint swelling, calf tenderness Back exam: Present: normal inspection Neurological exam: Present: alert, oriented X3, CN II-XII intact Psychiatric exam: Present: normal affect, normal mood Skin exam: Present: warm, dry, intact, normal color. Absent: rash Course Vital Signs 12/05/18 12/05/18 12/05/18 18:03 19:00 20:00 Temperature 98.1 F Pulse Rate 98 83 92 Respiratory 20 17 24 Rate Blood Pressure 131/84 137/79 154/108 O2 Sat by Pulse 100 95 96 Oximetry 12/05/18 12/05/18 21:00 21:42 Temperature Pulse Rate 90 Respiratory 19 Rate Blood Pressure 130/114 124/68 O2 Sat by Pulse 95 Oximetry - Reevaluation(s) Reevaluation #1: Medical record is reviewed spoke with Dr. Dunbar is agreeable for discharge Medical Decision Making - Medical Decision Making 88 female DEL with positive left lower extremity DVT. Long history of CVA, history of DVT. Patient be discharged home on [place] - Lab Data Result diagrams: 12/05/18 16:25 Lab Results 12/05/18 Range/Units 16:25 BUN 14 (7-17) mg/dL Creatinine 0.89 (0.52-1.04) mg/dL Est GFR (CKD-EPI)AfAm 67 (>60 ml/min/1.73 sqM) Est GFR (CKD-EPI)NonAf 59 (>60 ml/min/1.73 sqM) - Radiology Data Radiology results: report reviewed (CTA chest negative for PE ultrasound left lower Shorty positive for DVT), image reviewed Disposition Clinical Impression: Left leg DVT Disposition: HOME SELF-CARE Condition: Good Instructions (If sedation given, give patient instructions): Deep Vein Thrombosis (ED) Prescriptions: Apixaban [Eliquis] 5 mg PO BID #60 tablet Apixaban [Eliquis] 10 mg PO BID #28 tab Is patient prescribed a controlled substance at d/c from ED?: No Referrals: None,Stated [Primary Care Provider] - 1-2 days
[2018-12-05] MEDS ORDERED: APIXABAN 5 MG TAB PO STA (21:06)
[2018-12-05 21:38] VITALS: PULSE 90; RESP 19
[2018-12-05 21:42] VITALS: BP 124/68
== END 2018-12-05 21:48 | disposition home or self-care (01) ==
LOC: EC 17:55
DX: I82.402 Acute embolism and thrombosis of unspecified deep veins of left lower extremity (principal); H91.90 Unspecified hearing loss, unspecified ear; E78.5 Hyperlipidemia, unspecified; I10 Essential (primary) hypertension; M19.90 Unspecified osteoarthritis, unspecified site; Z86.711 Personal history of pulmonary embolism; Z85.41 Personal history of malignant neoplasm of cervix uteri; Z85.828 Personal history of other malignant neoplasm of skin; Z85.028 Personal history of other malignant neoplasm of stomach; Z85.72 Personal history of non-Hodgkin lymphomas; Z86.73 Personal history of transient ischemic attack (TIA), and cerebral infarction without residual deficits; Z86.79 Personal history of other diseases of the circulatory system; Z90.710 Acquired absence of both cervix and uterus; Z90.49 Acquired absence of other specified parts of digestive tract; Z90.13 Acquired absence of bilateral breasts and nipples; Z98.890 Other specified postprocedural states; Z87.891 Personal history of nicotine dependence; Z79.82 Long term (current) use of aspirin; Z79.899 Other long term (current) drug therapy
CPT/HCPCS: 82565; 84520; 93971; 71275; 36415; 99285; Q9967

== ENCOUNTER 2019-02-06 10:25 | Emergency (ER) | payer MEDICARE ==
[2019-02-06 10:36] VITALS: TEMP 97.7
[2019-02-06] MEDS: IPRATROPIUM-ALBUTEROL 3 ML NEB INHALATION STA ×2 (10:54→11:00)
[2019-02-06 11:00] LABS: Basophils % (A) 0 %; Eosinophils # (A) 0.1 k/uL (0-0.7); Eosinophils % (A) 2 %; HCT 44.9 % (34.0-46.0); HGB 14.8 gm/dL (11.4-16.0); Lymphocytes # (A) 1.9 k/uL (1.0-4.8); Lymphocytes % (A) 25 %; MCH 32.3 pg (25.0-35.0); MCHC 32.9 g/dL (31.0-37.0); MCV 98.3 fL (80.0-100.0); Macrocytosis Slight; Mean Platelet Volume 7.5; Monocytes # (A) 0.5 k/uL (0-1.0); Monocytes % (A) 7 %; Neutrophils # (A) 4.9 k/uL (1.3-7.7); Neutrophils % (A) 65 %; Platelet Count 242 k/uL (150-450); RBC 4.57 m/uL (3.80-5.40); RDW 15.5 % (11.5-15.5); WBC 7.6 k/uL (3.8-10.6)
--- NOTE | 2019-02-06 11:07 | ED ---
SOB HPI - General Chief Complaint: Shortness of Breath Stated Complaint: SOB Time Seen by Provider: 02/06/19 10:25 Source: patient, EMS, RN notes reviewed Mode of arrival: EMS - History of Present Illness Initial Comments: Is a 88-year-old female who presents with complaints of shortness of breath. EMS was called this morning because she was short of breath. She normally has anxiety problems. He gets short of breath, numbness. She normally will take Xanax which did not help this morning for about 45 minutes. She was brought in by EMS. No treatment was given in route, other than supportive care. She still feeling short of breath. No fevers chills nausea vomiting sweats cough or other symptoms. She also did have an episode of very brief visual disturbance which d id resolve quickly. She was better after she was applied. MD Complaint: shortness of breath - Related Data Home Medications Medication Instructions Recorded Confirmed amLODIPine [Norvasc] 5 mg PO DAILY 10/02/16 02/06/19 Methyl Salicylate/Menthol 1 patch TRANSDERM DAILY 12/05/18 02/06/19 [Salonpas Patch] Previous Rx's Medication Instructions Recorded Apixaban [Eliquis] 5 mg PO BID #60 tablet 12/05/18 Albuterol Inhaler [Ventolin Hfa 2 puff INHALATION Q6HR PRN #1 02/06/19 Inhaler] inhaler Allergies Allergy/AdvReac Type Severity Reaction Status Date / Time No Known Allergies Allergy Verified 02/06/19 11:04 Review of Systems ROS Statement: Those systems with pertinent positive or pertinent negative responses have been documented in the HPI. ROS Other: All systems not noted in ROS Statement are negative. Past Medical History Past Medical History: Cancer, COPD, Hearing Disorder / Deafness, Hyperlipidemia, Hypertension, Pulmonary Embolus (PE) Additional Past Medical History / Comment(s): cervical ca, lymphoma, bilateral breast cancer, skin cancer, STOMACH CANCER, HX HEPATITIS A CHILD, VERTIgO, AAA(UNK SIZE), UTI, EATS SMALL FREQ MEALS D/T HAVING 2/3 STOMACH REMOVED. AORTIC ANEURYSM WITH AORTIC STENT, Arhtritis History of Any Multi-Drug Resistant Organisms: None Reported Past Surgical History: Hysterectomy Additional Past Surgical History / Comment(s): 2/3 stomach removed, bilateral masectomy, skin cancer removal, ETHAN CATARACTS, trigger finger left hand, stent to AAA Past Anesthesia/Blood Transfusion Reactions: Motion Sickness Additional Past Anesthesia/Blood Transfusion Reaction / Comment(s): VERTIGO Past Psychological History: No Psychological Hx Reported Smoking Status: Former smoker Past Alcohol Use History: Daily Past Drug Use History: None Reported - Past Family History Mother Family Medical History: CVA/TIA Additional Family Medical History / Comment(s): AGE 94 IN HER SLEEP. Father Family Medical History: Myocardial Infarction ([place]) Additional Family Medical History / Comment(s): FROM [place] AGE 55 General Exam - General Exam Comments Initial Comments: Is a well-developed asthenic appearing female who is awake alert oriented 3 General appearance: alert Head exam: Present: atraumatic, normocephalic, normal inspection Eye exam: Present: normal appearance, PERRL, EOMI. Absent: scleral icterus, conjunctival injection, periorbital swelling ENT exam: Present: normal exam, mucous membranes moist Neck exam: Present: normal inspection, full ROM, other (No stridor JVD or bruits). Absent: tenderness, meningismus, lymphadenopathy Respiratory exam: Present: decreased breath sounds, other (He does demonstrate marked kyphosis). Absent: respiratory distress, wheezes, rales, rhonchi, stridor Cardiovascular Exam: Present: regular rate, normal rhythm, normal heart sounds. Absent: systolic murmur, diastolic murmur, rubs, gallop, clicks GI/Abdominal exam: Present: soft, normal bowel sounds. Absent: distended, tenderness, guarding, rebound, rigid Extremities exam: Present: normal inspection, full ROM, normal capillary refill. Absent: tenderness, pedal edema, joint swelling, calf tenderness Back exam: Present: normal inspection Neurological exam: Present: alert, oriented X3, CN II-XII intact Psychiatric exam: Present: normal affect, normal mood Skin exam: Present: warm, dry, intact, normal color. Absent: rash Course Vital Signs 02/06/19 02/06/19 02/06/19 10:27 10:54 11:00 Temperature 97.7 F Pulse Rate 90 72 80 Respiratory 18 16 Rate Blood Pressure 130/75 130/74 O2 Sat by Pulse 95 98 Oximetry 02/06/19 02/06/19 02/06/19 11:08 11:30 12:00 Temperature Pulse Rate 85 90 88 Respiratory 23 22 Rate Blood Pressure 103/71 119/63 O2 Sat by Pulse 96 93 L Oximetry 02/06/19 02/06/19 13:10 13:21 Temperature Pulse Rate 79 81 Respiratory Rate Blood Pressure O2 Sat by Pulse Oximetry Medical Decision Making - Medical Decision Making Patient did respond to the treatment that was rendered she does demonstrate evidence dehydration. She was able ambulate without difficulty or desaturation. After discussion with the patient family she'll be discharged home she is a former smoker for many years ago. The patient will be discharged I will write for a albuterol inhaler for to be used when necessary she is a follow-up with her doctor and return if any issues - Lab Data Result diagrams: 02/06/19 10:44 02/06/19 10:44 Lab Results 02/06/19 02/06/19 02/06/19 Range/Units 10:44 10:44 10:44 WBC 7.6 (3.8-10.6) k/uL RBC 4.57 (3.80-5.40) m/uL Hgb 14.8 (11.4-16.0) gm/dL Hct 44.9 (34.0-46.0) % MCV 98.3 (80.0-100.0) fL MCH 32.3 (25.0-35.0) pg MCHC 32.9 (31.0-37.0) g/dL RDW 15.5 (11.5-15.5) % Plt Count 242 (150-450) k/uL Neutrophils % 65 % Lymphocytes % 25 % Monocytes % 7 % Eosinophils % 2 % Basophils % 0 % Neutrophils # 4.9 (1.3-7.7) k/uL Lymphocytes # 1.9 (1.0-4.8) k/uL Monocytes # 0.5 (0-1.0) k/uL Eosinophils # 0.1 (0-0.7) k/uL Basophils # 0.0 (0-0.2) k/uL Macrocytosis Slight PT (9.0-12.0) sec INR (<1.2) APTT (22.0-30.0) sec D-Dimer (<0.60) mg/L FEU Sodium 140 (137-145) mmol/L Potassium 5.3 H (3.5-5.1) mmol/L Chloride 106 (98-107) mmol/L Carbon Dioxide 27 (22-30) mmol/L Anion Gap 7 mmol/L BUN 19 H (7-17) mg/dL Creatinine 0.79 (0.52-1.04) mg/dL Est GFR (CKD-EPI)AfAm 79 (>60 ml/min/1.73 sqM) Est GFR (CKD-EPI)NonAf 68 (>60 ml/min/1.73 sqM) Glucose 51 L (74-99) mg/dL Calcium 9.9 (8.4-10.2) mg/dL Magnesium 2.1 (1.6-2.3) mg/dL Total Bilirubin 0.9 (0.2-1.3) mg/dL AST 34 (14-36) U/L ALT 10 (9-52) U/L Alkaline Phosphatase 47 (38-126) U/L Troponin I (0.000-0.034) ng/mL NT-Pro-B Natriuret Pep 406 pg/mL Total Protein 6.8 (6.3-8.2) g/dL Albumin 3.9 (3.5-5.0) g/dL 02/06/19 02/06/19 Range/Units 10:44 10:44 WBC (3.8-10.6) k/uL RBC (3.80-5.40) m/uL Hgb (11.4-16.0) gm/dL Hct (34.0-46.0) % MCV (80.0-100.0) fL MCH (25.0-35.0) pg MCHC (31.0-37.0) g/dL RDW (11.5-15.5) % Plt Count (150-450) k/uL Neutrophils % % Lymphocytes % % Monocytes % % Eosinophils % % Basophils % % Neutrophils # (1.3-7.7) k/uL Lymphocytes # (1.0-4.8) k/uL Monocytes # (0-1.0) k/uL Eosinophils # (0-0.7) k/uL Basophils # (0-0.2) k/uL Macrocytosis PT 10.2 (9.0-12.0) sec INR 0.9 (<1.2) APTT 21.4 L (22.0-30.0) sec D-Dimer 4.29 H (<0.60) mg/L FEU Sodium (137-145) mmol/L Potassium (3.5-5.1) mmol/L Chloride (98-107) mmol/L Carbon Dioxide (22-30) mmol/L Anion Gap mmol/L BUN (7-17) mg/dL Creatinine (0.52-1.04) mg/dL Est GFR (CKD-EPI)AfAm (>60 ml/min/1.73 sqM) Est GFR (CKD-EPI)NonAf (>60 ml/min/1.73 sqM) Glucose (74-99) mg/dL Calcium (8.4-10.2) mg/dL Magnesium (1.6-2.3) mg/dL Total Bilirubin (0.2-1.3) mg/dL AST (14-36) U/L ALT (9-52) U/L Alkaline Phosphatase (38-126) U/L Troponin I <0.012 (0.000-0.034) ng/mL NT-Pro-B Natriuret Pep pg/mL Total Protein (6.3-8.2) g/dL Albumin (3.5-5.0) g/dL - EKG Data -: EKG Interpreted by [place] EKG shows normal: sinus rhythm (Sinus rhythm 70. Interval 174 QRS duration 82 QT since QTC 394/425 with exodeviation minimal pulses criteria for LVH, poor R- wave progression.) - Radiology Data Radiology results: report reviewed (Imaging shows no acute findings.), image r eviewed Disposition Clinical Impression: Acute bronchospasm, Dehydration Disposition: HOME SELF-CARE Condition: Good Instructions (If sedation given, give patient instructions): Bronchospasm (ED), Dehydration (ED) Prescriptions: Albuterol Inhaler [Ventolin Hfa Inhaler] 2 puff INHALATION Q6HR PRN #1 inhaler PRN Reason: Dyspnea Is patient prescribed a controlled substance at d/c from ED?: No Referrals: Abdoulaye Dunbar MD [Primary Care Provider] - 1-2 days
[2019-02-06 11:13] LABS: Albumin 3.9 g/dL (3.5-5.0); Calcium 9.9 mg/dL (8.4-10.2); Magnesium 2.1 mg/dL (1.6-2.3); Total Bilirubin 0.9 mg/dL (0.2-1.3); Total Protein 6.8 g/dL (6.3-8.2)
[2019-02-06 11:21] LABS: Potassium 5.3 mmol/L (3.5-5.1)
[2019-02-06 11:22] LABS: INR 0.9 (<1.2); Partial Thromboplastin Time 21.4 sec (22.0-30.0); Prothrombin Time 10.2 sec (9.0-12.0)
[2019-02-06 11:27] LABS: D-Dimer 4.29 mg/L FEU (<0.60)
--- NOTE | 2019-02-06 11:28 | XR ---
EXAMINATION TYPE: XR chest 2V DATE OF EXAM: 02/06/2019 COMPARISON: Prior chest x-ray dated 07/16/[address] scan of the chest 12/05/2017 HISTORY: Difficulty breathing, shortness of breath TECHNIQUE: Frontal and lateral views of the chest are obtained. FINDINGS: Prominent lung volumes are again noted compatible with underlying COPD. Bone mineralizatio n is reduced, bones are stable. Aortic stent graft noted incidentally. Aorta is dense. Patient is rot ated. Heart size is likely stable. Pulmonary artery shows stable appearance and are mildly prominent, there may be underlying pulmonary artery hypertension. No evident airspace disease, pneumothorax, or pleural effusion. IMPRESSION: No acute cardiopulmonary process. Essentially stable findings as described.
--- NOTE | 2019-02-06 11:44 | CT ---
EXAMINATION TYPE: CT brain wo con DATE OF EXAM: 02/06/2019 COMPARISON: Prior CT 07/16/2018 HISTORY: Difficulty breathing, poor historian, pain, abnormal prior scan CT DLP: 1158.4 mGycm Automated exposure control for dose reduction was used. FINDINGS: Periventricular white matter again shows patchy low attenuation. There is no hemorrhage or hydrocepha debora. Cerebral vascular calcifications are present. Cortical atrophy again noted. Orbits show symmetri c appearance. Sinuses are well aerated. IMPRESSION: NO ACUTE ABNORMALITIES EVIDENT.
--- NOTE | 2019-02-06 12:28 | CT ---
EXAMINATION TYPE: CT angio chest DATE OF EXAM: 02/06/2019 COMPARISON: Prior CT chest 12/05/2018 HISTORY: Shortness of breath CT DLP: 170.2 mGycm Automated exposure control for dose reduction was used. CONTRAST: CTA scan of the thorax is performed with IV Contrast, patient injected with 100 mL of Isovue 370, pul monary embolism protocol. MIP images are created and reviewed. 3D reconstructed images are created on an independent workstation and reviewed. FINDINGS: LUNGS: The lungs are grossly stable, there is no concerning parenchymal mass or nodule identified. Ev idence of old granulomatous disease. There is no pleural effusion or pneumothorax seen. The tracheo bronchial tree is patent. AORTA: No additional significant abnormality is seen. MEDIASTINUM: There is satisfactory enhancement of the pulmonary artery and its branches, there is no CT evidence for pulmonary embolism. Pulmonary artery is again prominent compatible with possible pulm onary artery hypertension. There are no greater than 1 cm hilar or mediastinal lymph nodes. No petros cardial effusion is seen. There are coronary artery calcifications present. OTHER: Patient's marked kyphosis is again noted. Posterior diaphragmatic hernias contain.. Aortic stent graft present within the abdomen. Atheromatous plaque present at the origin of the left subclavian artery as on prior. IMPRESSION: EMPHYSEMA. NO EVIDENT PULMONARY EMBOLISM. Additional findings above.
[2019-02-06] MEDS ORDERED: IPRATROPIUM-ALBUTEROL 3 ML NEB INHALATION STA (12:49)
[2019-02-06 14:15] VITALS: BP 124/69; PULSE 92; RESP 18
== END 2019-02-06 14:24 | disposition home or self-care (01) ==
LOC: EC 10:25
DX: J98.01 Acute bronchospasm (principal); E86.0 Dehydration; M40.204 Unspecified kyphosis, thoracic region; R20.0 Anesthesia of skin; F41.9 Anxiety disorder, unspecified; I10 Essential (primary) hypertension; H91.90 Unspecified hearing loss, unspecified ear; Z87.891 Personal history of nicotine dependence; Z79.899 Other long term (current) drug therapy; Z85.3 Personal history of malignant neoplasm of breast; Z85.41 Personal history of malignant neoplasm of cervix uteri; Z85.028 Personal history of other malignant neoplasm of stomach; Z85.72 Personal history of non-Hodgkin lymphomas; Z85.828 Personal history of other malignant neoplasm of skin; Z86.711 Personal history of pulmonary embolism; Z86.79 Personal history of other diseases of the circulatory system; Z90.13 Acquired absence of bilateral breasts and nipples; Z90.49 Acquired absence of other specified parts of digestive tract; Z90.710 Acquired absence of both cervix and uterus; Z95.5 Presence of coronary angioplasty implant and graft; Z98.890 Other specified postprocedural states
CPT/HCPCS: 36415; 94640 ×2; 93005; 85379; 83880; 80053; 83735; 84484; 85025; 85610; 85730; 71046; 70450; 71275; 99285; Q9967

== ENCOUNTER 2019-03-09 11:07 | Observation (INO) | payer MEDICARE ==
[2019-03-09] MEDS ORDERED: SODIUM CHLORIDE 0.9% 500 ML 500 ML IV ONE (11:22)
--- NOTE | 2019-03-09 11:25 | ED ---
General Adult HPI - General Chief complaint: Altered Mental Status Stated complaint: Confusion Time Seen by Provider: 03/09/19 11:11 Source: EMS, RN notes reviewed Mode of arrival: EMS Limitations: no limitations, altered mental status - History of Present Illness Initial comments: This is a 88-year-old female who presents emergency Department via EMS. Patient lives at home with her daughter. Patient was sent in because she is altered slightly enormous is alert and oriented 3 with no dementia today the patient is alert and oriented 2 according to the daughter. Daughter is not the room this is via EMS. Patient denies any pain patient does not know why she is here she is alert and oriented 2 she denies any fever chills. Patient denies any cough patient denies any chest pain palpitations difficulty breathing first breath per patient denies abdominal pain patient denies nausea vomiting diarrhea. There's been no history of any injury or trauma. According to EMS the patient had gone through an episode like this about a month ago and they believe it was an infection. Daughters yet to be in the room so no further history can be obtain ed at this time - Related Data Home Medications Medication Instructions Recorded Confirmed amLODIPine [Norvasc] 5 mg PO DAILY 10/02/16 03/09/19 ALPRAZolam [Xanax] 0.25 mg PO Q8H PRN 03/09/19 03/09/19 Cholecalciferol (Vitamin D3) 2,000 unit PO DAILY 03/09/19 03/09/19 [Vitamin D3] HYDROcodone/APAP 5-325MG [[place] 1 tab PO Q6H PRN 03/09/19 03/09/19 5-325] SILVER sulfADIAZINE Cream 1 applic TOPICAL BID 03/09/19 03/09/19 [Silvadene 1% Cream] Previous Rx's Medication Instructions Recorded Apixaban [Eliquis] 5 mg PO BID #60 tablet 12/05/18 Nitrofurantoin Monohyd/M-Cryst 100 mg PO Q12HR #14 cap 03/09/19 [Macrobid] Allergies Allergy/AdvReac Type Severity Reaction Status Date / Time No Known Allergies Allergy Verified 02/06/19 11:04 Review of Systems ROS Statement: Those systems with pertinent positive or pertinent negative responses have been documented in the HPI. ROS Other: All systems not noted in ROS Statement are negative. Past Medical History Past Medical History: Cancer, COPD, Hearing Disorder / Deafness, Hyperlipidemia, Hypertension, Pulmonary Embolus (PE) Additional Past Medical History / Comment(s): cervical ca, lymphoma, bilateral breast cancer, skin cancer, STOMACH CANCER, HX HEPATITIS A CHILD, VERTIgO, AAA(UNK SIZE), UTI, EATS SMALL FREQ MEALS D/T HAVING 2/3 STOMACH REMOVED. AORTIC ANEURYSM WITH AORTIC STENT, Arhtritis History of Any Multi-Drug Resistant Organisms: None Reported Past Surgical History: Hysterectomy Additional Past Surgical History / Comment(s): 2/3 stomach removed, bilateral masectomy, skin cancer removal, ETHAN CATARACTS, trigger finger left hand, stent to AAA Past Anesthesia/Blood Transfusion Reactions: Motion Sickness Additional Past Anesthesia/Blood Transfusion Reaction / Comment(s): VERTIGO Past Psychological History: No Psychological Hx Reported Smoking Status: Former smoker Past Alcohol Use History: Daily Past Drug Use History: None Reported - Past Family History Mother Family Medical History: CVA/TIA Additional Family Medical History / Comment(s): AGE 94 IN HER SLEEP. Father Family Medical History: Myocardial Infarction ([place]) Additional Family Medical History / Comment(s): FROM [place] AGE 55 General Exam - General Exam Comments Initial Comments: GENERAL: Patient is well-developed and well-nourished. Patient is nontoxic and well- hydrated and is in no acute distress. ENT: Neck is soft and supple. No significant lymphadenopathy is noted. Oropharynx is clear. Moist mucous membranes. Neck has full range of motion without zay citing any pain. EYES: The sclera were anicteric and conjunctiva were pink and moist. Extraocular movements were intact and pupils were equal round and reactive to light. Eyelids were unremarkable. PULMONARY: Unlabored respirations. Good breath sounds bilaterally. No audible rales rhonchi or wheezing was noted. CARDIOVASCULAR: There is a regular rate and rhythm without any murmurs gallops or rubs. ABDOMEN: Soft and nontender with normal bowel sounds. No palpable organomegaly was noted . There is no palpable pulsatile mass. SKIN: Skin is clear with no lesions or rashes and otherwise unremarkable. NEUROLOGIC: Patient is alert and oriented 2. Cranial nerves II through XII are grossly intact. Motor and sensory are also intact. Normal speech, volume and content. Symmetrical smile. MUSCULOSKELETAL: Normal extremities with adequate strength and full range of motion. No lower extremity swelling or edema. No calf tenderness. LYMPHATICS: No significant lymphadenopathy is noted PSYCHIATRIC: Normal psychiatric evaluation. Limitations: no limitations, altered mental status Course Vital Signs 03/09/19 03/09/19 03/09/19 11:11 11:13 11:30 Temperature 98.4 F Pulse Rate 63 59 L Respiratory 16 Rate Blood Pressure 148/84 148/84 O2 Sat by Pulse 100 99 Oximetry 03/09/19 03/09/19 14:05 14:39 Temperature 98.1 F Pulse Rate 64 103 H Respiratory 18 16 Rate Blood Pressure 167/86 128/67 O2 Sat by Pulse 96 99 Oximetry Medical Decision Making - Medical Decision Making EKG shows sinus bradycardia 59 bpm NC interval 282 QRS is 82 QT interval 422 QTC is 417. Patient's EKG shows no ST segment elevation or depression or T wave abnormalities are noted. Chest x-ray shows no acute abnormality. Patient's urine looked infected I gave the patient 1 g of Rocephin. I will begin the room the daughter had come to the bedside and she stated that ever since she has been here the daughter is at her neurologic baseline. Daughter states she is comfortable taking her home the patient does not want to stay any help. Daughter states that the mom might of had some wine this morning which is becoming more more of an issue with her. Patient will follow-up with her primary According to the daughter she is somewhat forgetful of the year and date which is held she was when first interviewed her today. Patient received 10 of hydralazine: Blood pressure was elevated and she had not taken her blood pressure medications. Patient was still in the emergency department for another 30 minutes the patient was discharged and on discharge when she was trying to transfer the car she had a near syncopal episode. Patient's blood pressure was 120 at that point and it eventually dropped to about 95 systolic. Patient does not complain of any pain but she does feel lightheaded. I repeated an EKG shows a normal sinus rhythm at 60 bpm NC interval is 166 QRS is 84 QT interval is 442 QTC is 469. Patient's EKG shows no ST segment elevation or depression. Patient's pulse ox is 100% on 2 L. - Lab Data Result diagrams: 03/09/19 11:17 03/09/19 11:17 Lab Results 03/09/19 03/09/19 03/09/19 Range/Units 11:17 11:17 11:17 WBC 7.3 (3.8-10.6) k/uL RBC 4.56 (3.80-5.40) m/uL Hgb 14.6 (11.4-16.0) gm/dL Hct 45.6 (34.0-46.0) % MCV 99.9 (80.0-100.0) fL MCH 32.0 (25.0-35.0) pg MCHC 32.0 (31.0-37.0) g/dL RDW 14.1 (11.5-15.5) % Plt Count 240 (150-450) k/uL Neutrophils % 63 % Lymphocytes % 26 % Monocytes % 6 % Eosinophils % 2 % Basophils % 1 % Neutrophils # 4.6 (1.3-7.7) k/uL Lymphocytes # 1.9 (1.0-4.8) k/uL Monocytes # 0.4 (0-1.0) k/uL Eosinophils # 0.1 (0-0.7) k/uL Basophils # 0.1 (0-0.2) k/uL PT 10.1 (9.0-12.0) sec INR 0.9 (<1.2) APTT 21.4 L (22.0-30.0) sec Sodium 138 (137-145) mmol/L Potassium 5.0 (3.5-5.1) mmol/L Chloride 102 (98-107) mmol/L Carbon Dioxide 26 (22-30) mmol/L Anion Gap 10 mmol/L BUN 14 (7-17) mg/dL Creatinine 0.86 (0.52-1.04) mg/dL Est GFR (CKD-EPI)AfAm 71 (>60 ml/min/1.73 sqM) Est GFR (CKD-EPI)NonAf 61 (>60 ml/min/1.73 sqM) Glucose 82 (74-99) mg/dL POC Glucose (mg/dL) (75-99) mg/dL POC Glu General Matcher ID Calcium 9.8 (8.4-10.2) mg/dL Total Bilirubin 0.5 (0.2-1.3) mg/dL AST 27 (14-36) U/L ALT <6 L (9-52) U/L Alkaline Phosphatase 64 (38-126) U/L Troponin I (0.000-0.034) ng/mL Total Protein 6.6 (6.3-8.2) g/dL Albumin 4.0 (3.5-5.0) g/dL Urine Color Urine Appearance (Clear) Urine pH (5.0-8.0) Ur Specific [place] (1.001-1.035) Urine Protein (Negative) Urine Glucose (UA) (Negative) Urine Ketones (Negative) Urine Blood (Negative) Urine Nitrite (Negative) Urine Bilirubin (Negative) Urine Urobilinogen (<2.0) mg/dL Ur Leukocyte Esterase (Negative) Urine RBC (0-5) /hpf Urine WBC (0-5) /hpf Ur Squamous Epith Cells (0-4) /hpf Urine Bacteria (None) /hpf Urine Mucus (None) /hpf Urine Opiates Screen (NotDetected) Ur Oxycodone Screen (NotDetected) Urine Methadone Screen (NotDetected) Ur Propoxyphene Screen (NotDetected) Ur Barbiturates Screen (NotDetected) U Tricyclic Antidepress (NotDetected) Ur Phencyclidine Scrn (NotDetected) Ur Amphetamines Screen (NotDetected) U Methamphetamines Scrn (NotDetected) U Benzodiazepines Scrn (NotDetected) Urine Cocaine Screen (NotDetected) U Marijuana (THC) Screen (NotDetected) Serum Alcohol mg/dL 03/09/19 03/09/19 03/09/19 Range/Units 11:17 11:37 12:47 WBC (3.8-10.6) k/uL RBC (3.80-5.40) m/uL Hgb (11.4-16.0) gm/dL Hct (34.0-46.0) % MCV (80.0-100.0) fL MCH (25.0-35.0) pg MCHC (31.0-37.0) g/dL RDW (11.5-15.5) % Plt Count (150-450) k/uL Neutrophils % % Lymphocytes % % Monocytes % % Eosinophils % % Basophils % % Neutrophils # (1.3-7.7) k/uL Lymphocytes # (1.0-4.8) k/uL Monocytes # (0-1.0) k/uL Eosinophils # (0-0.7) k/uL Basophils # (0-0.2) k/uL PT (9.0-12.0) sec INR (<1.2) APTT (22.0-30.0) sec Sodium (137-145) mmol/L Potassium (3.5-5.1) mmol/L Chloride (98-107) mmol/L Carbon Dioxide (22-30) mmol/L Anion Gap mmol/L BUN (7-17) mg/dL Creatinine (0.52-1.04) mg/dL Est GFR (CKD-EPI)AfAm (>60 ml/min/1.73 sqM) Est GFR (CKD-EPI)NonAf (>60 ml/min/1.73 sqM) Glucose (74-99) mg/dL POC Glucose (mg/dL) 104 H (75-99) mg/dL POC Glu General Matcher ID Christopher Sampson Calcium (8.4-10.2) mg/dL Total Bilirubin (0.2-1.3) mg/dL AST (14-36) U/L ALT (9-52) U/L Alkaline Phosphatase (38-126) U/L Troponin I <0.012 (0.000-0.034) ng/mL Total Protein (6.3-8.2) g/dL Albumin (3.5-5.0) g/dL Urine Color Urine Appearance (Clear) Urine pH (5.0-8.0) Ur Specific [place] (1.001-1.035) Urine Protein (Negative) Urine Glucose (UA) (Negative) Urine Ketones (Negative) Urine Blood (Negative) Urine Nitrite (Negative) Urine Bilirubin (Negative) Urine Urobilinogen (<2.0) mg/dL Ur Leukocyte Esterase (Negative) Urine RBC (0-5) /hpf Urine WBC (0-5) /hpf Ur Squamous Epith Cells (0-4) /hpf Urine Bacteria (None) /hpf Urine Mucus (None) /hpf Urine Opiates Screen Not Detected (NotDetected) Ur Oxycodone Screen Not Detected (NotDetected) Urine Methadone Screen Not Detected (NotDetected) Ur Propoxyphene Screen Not Detected (NotDetected) Ur Barbiturates Screen Not Detected (NotDetected) U Tricyclic Antidepress Not Detected (NotDetected) Ur Phencyclidine Scrn Not Detected (NotDetected) Ur Amphetamines Screen Not Detected (NotDetected) U Methamphetamines Scrn Not Detected (NotDetected) U Benzodiazepines Scrn Not Detected (NotDetected) Urine Cocaine Screen Not Detected (NotDetected) U Marijuana (THC) Screen Not Detected (NotDetected) Serum Alcohol mg/dL 03/09/19 03/09/19 Range/Units 12:47 14:00 WBC (3.8-10.6) k/uL RBC (3.80-5.40) m/uL Hgb (11.4-16.0) gm/dL Hct (34.0-46.0) % MCV (80.0-100.0) fL MCH (25.0-35.0) pg MCHC (31.0-37.0) g/dL RDW (11.5-15.5) % Plt Count (150-450) k/uL Neutrophils % % Lymphocytes % % Monocytes % % Eosinophils % % Basophils % % Neutrophils # (1.3-7.7) k/uL Lymphocytes # (1.0-4.8) k/uL Monocytes # (0-1.0) k/uL Eosinophils # (0-0.7) k/uL Basophils # (0-0.2) k/uL PT (9.0-12.0) sec INR (<1.2) APTT (22.0-30.0) sec Sodium (137-145) mmol/L Potassium (3.5-5.1) mmol/L Chloride (98-107) mmol/L Carbon Dioxide (22-30) mmol/L Anion Gap mmol/L BUN (7-17) mg/dL Creatinine (0.52-1.04) mg/dL Est GFR (CKD-EPI)AfAm (>60 ml/min/1.73 sqM) Est GFR (CKD-EPI)NonAf (>60 ml/min/1.73 sqM) Glucose (74-99) mg/dL POC Glucose (mg/dL) (75-99) mg/dL POC Glu General Matcher ID Calcium (8.4-10.2) mg/dL Total Bilirubin (0.2-1.3) mg/dL AST (14-36) U/L ALT (9-52) U/L Alkaline Phosphatase (38-126) U/L Troponin I (0.000-0.034) ng/mL Total Protein (6.3-8.2) g/dL Albumin (3.5-5.0) g/dL Urine Color Light Yellow Urine Appearance Cloudy H (Clear) Urine pH 6.0 (5.0-8.0) Ur Specific [place] 1.006 (1.001-1.035) Urine Protein Negative (Negative) Urine Glucose (UA) Negative (Negative) Urine Ketones Negative (Negative) Urine Blood Negative (Negative) Urine Nitrite Negative (Negative) Urine Bilirubin Negative (Negative) Urine Urobilinogen <2.0 (<2.0) mg/dL Ur Leukocyte Esterase Large H (Negative) Urine RBC 9 H (0-5) /hpf Urine WBC 46 H (0-5) /hpf Ur Squamous Epith Cells 11 H (0-4) /hpf Urine Bacteria Rare H (None) /hpf Urine Mucus Rare H (None) /hpf Urine Opiates Screen (NotDetected) Ur Oxycodone Screen (NotDetected) Urine Methadone Screen (NotDetected) Ur Propoxyphene Screen (NotDetected) Ur Barbiturates Screen (NotDetected) U Tricyclic Antidepress (NotDetected) Ur Phencyclidine Scrn (NotDetected) Ur Amphetamines Screen (NotDetected) U Methamphetamines Scrn (NotDetected) U Benzodiazepines Scrn (NotDetected) Urine Cocaine Screen (NotDetected) U Marijuana (THC) Screen (NotDetected) Serum Alcohol 26 mg/dL Disposition Clinical Impression: Altered mental status, Urinary tract infection, Near syncope Disposition: ADMITTED IP TO THIS HOSP Condition: Good Instructions (If sedation given, give patient instructions): Urinary Tract Infection in Women (ED), Altered Mental Status (ED) Prescriptions: Nitrofurantoin Monohyd/M-Cryst [Macrobid] 100 mg PO Q12HR #14 cap Is patient prescribed a controlled substance at d/c from ED?: No Referrals: Abdoulaye Dunbar MD [Primary Care Provider] - 1-2 days Time of Disposition: 13:47
[2019-03-09 11:39] LABS: Glucose,Whole Blood 104 mg/dL (75-99)
[2019-03-09 11:44] LABS: Basophils # (A) 0.1 k/uL (0-0.2); Basophils % (A) 1 %; Eosinophils # (A) 0.1 k/uL (0-0.7); Eosinophils % (A) 2 %; HCT 45.6 % (34.0-46.0); HGB 14.6 gm/dL (11.4-16.0); Lymphocytes # (A) 1.9 k/uL (1.0-4.8); Lymphocytes % (A) 26 %; MCV 99.9 fL (80.0-100.0); Mean Platelet Volume 6.9; Monocytes # (A) 0.4 k/uL (0-1.0); Monocytes % (A) 6 %; Neutrophils # (A) 4.6 k/uL (1.3-7.7); Neutrophils % (A) 63 %; Platelet Count 240 k/uL (150-450); RBC 4.56 m/uL (3.80-5.40); RDW 14.1 % (11.5-15.5); WBC 7.3 k/uL (3.8-10.6)
[2019-03-09 11:54] LABS: ALT <6 U/L (9-52); AST 27 U/L (14-36); African American GFR (CKD) 71 (>60 ml/min/1.73 sqM); Alkaline Phosphatase 64 U/L (38-126); Anion Gap 10 mmol/L; Blood Urea Nitrogen 14 mg/dL (7-17); Calcium 9.8 mg/dL (8.4-10.2); Carbon Dioxide 26 mmol/L (22-30); Chloride 102 mmol/L (98-107); Glucose 82 mg/dL (74-99); Sodium 138 mmol/L (137-145); Total Bilirubin 0.5 mg/dL (0.2-1.3); Total Protein 6.6 g/dL (6.3-8.2)
[2019-03-09 12:00] LABS: INR 0.9 (<1.2); Prothrombin Time 10.1 sec (9.0-12.0)
[2019-03-09 12:03] LABS: Partial Thromboplastin Time 21.4 sec (22.0-30.0)
--- NOTE | 2019-03-09 12:49 | XR ---
EXAMINATION TYPE: XR chest 2V DATE OF EXAM: 03/09/2019 COMPARISON: Chest x-ray and CTA chest February 06, 2019. HISTORY: Lethargy and weakness. TECHNIQUE: Frontal and lateral views of the chest are obtained. FINDINGS: Exaggerated thoracic kyphosis is redemonstrated. There is background chronic emphysematous change without suspicious new focal airspace opacity, pleural effusion, or pneumothorax. Cardiac silh ouette size is stable and mildly enlarged with enlarged pulmonary arteries and atherosclerotic thorac ic aorta. Osseous structures are demineralized. There is partial visualization of aorto biiliac stent graft in the upper abdomen. IMPRESSION: Cardiomegaly and chronic emphysematous change without acute pulmonary process.
[2019-03-09 13:06] LABS: Appearance,Urine Cloudy (Clear); Bacteria,Urine Rare /hpf; Bilirubin,Urine Negative (Negative); Blood,Urine Negative (Negative); Color,Urine Light Yellow; Glucose,Urine (UA) Negative (Negative); Ketones,Urine Negative (Negative); Leukocyte Esterase,Urine Large (Negative); Mucus,Urine Rare /hpf; Nitrite,Urine Negative (Negative); Protein,Urine Negative (Negative); RBC,Urine 9 /hpf (0-5); Specific Gravity,Urine 1.006 (1.001-1.035); Squamous Epithelial Cell,Urine 11 /hpf (0-4); Urobilinogen,Urine <2.0 mg/dL (<2.0); WBC,Urine 46 /hpf (0-5)
[2019-03-09 13:17] LABS: Amphetamine Screen,Urine Not Detected (NotDetected); Barbiturate Screen,Urine Not Detected (NotDetected); Benzodiazepines Screen,Urine Not Detected (NotDetected); Cocaine Screen,Urine Not Detected (NotDetected); Methadone Screen, Urine Not Detected (NotDetected); Opiate Screen,Urine Not Detected (NotDetected); Oxycodone Screen, Urine Not Detected (NotDetected); Phencyclidine Screen,Urine Not Detected (NotDetected); Tricyclic Antidepressant,Urine Not Detected (NotDetected); Urn Cannabinoid Scrn Not Detected (NotDetected)
[2019-03-09] MEDS ORDERED: cefTRIAXone IN SWFI 1,000 MG/10 ML SYRINGE IVP STA (13:44)
[2019-03-09] MEDS ORDERED: hydrALAZINE HCL 20 MG/ML 1 ML VIAL IVP STA (13:45)
[2019-03-09] MEDS ORDERED: LORazepam 2 MG/ML INJ IV STA (15:22)
[2019-03-09] MEDS ORDERED: SODIUM CHLORIDE 0.9% 1,000 ML IV ONE (15:46)
--- NOTE | 2019-03-09 18:18 | P.HPIM ---
History of Present Illness 88-year-old female was brought into ER initially with complaints of a near syncope without any seizure-like activity loss of bowel or bladder incontinence patient was seen in ER was subsequently discharged with antibiotics for possib ility of urinary tract infection. Patient the urine doesn't appear to be UTI but appears to be contaminated urine sample patient denied any dysuria denied any suprapubic pain or any fever chills doesn't have any leukocytosis patient is a very thin built cachectic female. Doesn't have any history of atrial fibrillation but patient the when I saw her is in sinus tach with on and off PACs. Patient may have had the atrial fibrillation or some kind of heart rhythm abnormality that led to her having a syncope. Patient will be monitored here echocardiogram will be obtained echocardiogram 2 years ago was within normal limits patient has multiple cancers in the past. Patient did pressure is fairly stable at this time patient takes amlodipine which will be temporally held. Patient Eliquis for her DVT in the past. Patient memory is not great appears to have at least moderate dementia may be senile or vascular dementia. Patient functionality is okay able to get around with the help of her walker and the is dependent on ADLs and IADLs. Review of Systems REVIEW OF SYSTEMS: CONSTITUTIONAL: No fever, no malaise, no fatigue. HEENT: No recent visual problems or hearing problems. Denied any sore throat. CARDIOVASCULAR: No chest pain, orthopnea, PND, no palpitations, PULMONARY: No shortness of breath, no cough, no hemoptysis. GASTROINTESTINAL: No diarrhea, no nausea, no vomiting, no abdominal pain. NEUROLOGICAL: No headaches, no weakness, no numbness. HEMATOLOGICAL: Denies any bleeding or petechiae. GENITOURINARY: Denies any burning micturition, frequency, or urgency. MUSCULOSKELETAL/RHEUMATOLOGICAL: Denies any joint pain, swelling, or any muscle pain. ENDOCRINE: Denies any polyuria or polydipsia. The rest of the 14-point review of systems is negative. Past Medical History Past Medical History: Cancer, COPD, Hearing Disorder / Deafness, Hyperlipidemia, Hypertension, Pulmonary Embolus (PE) Additional Past Medical History / Comment(s): cervical ca, lymphoma, bilateral breast cancer, skin cancer, STOMACH CANCER, HX HEPATITIS A CHILD, VERTIgO, AAA(UNK SIZE), UTI, EATS SMALL FREQ MEALS D/T HAVING 2/3 STOMACH REMOVED. AORTIC ANEURYSM WITH AORTIC STENT, Arhtritis History of Any Multi-Drug Resistant Organisms: None Reported Past Surgical History: Hysterectomy Additional Past Surgical History / Comment(s): 2/3 stomach removed, bilateral masectomy, skin cancer removal, ETHAN CATARACTS, trigger finger left hand, stent to AAA Past Anesthesia/Blood Transfusion Reactions: Motion Sickness Additional Past Anesthesia/Blood Transfusion Reaction / Comment(s): VERTIGO Past Psychological History: No Psychological Hx Reported Smoking Status: Former smoker Past Alcohol Use History: Daily Past Drug Use History: None Reported - Past Family History Mother Family Medical History: CVA/TIA Additional Family Medical History / Comment(s): AGE 94 IN HER SLEEP. Father Family Medical History: Myocardial Infarction ([place]) Additional Family Medical History / Comment(s): FROM [place] AGE 55 Medications and Allergies Home Medications Medication Instructions Recorded Confirmed Type amLODIPine [Norvasc] 5 mg PO DAILY 10/02/16 03/09/19 History Apixaban [Eliquis] 5 mg PO BID #60 tablet 12/05/18 03/09/19 Rx ALPRAZolam [Xanax] 0.25 mg PO Q8H PRN 03/09/19 03/09/19 History Cholecalciferol (Vitamin D3) 2,000 unit PO DAILY 03/09/19 03/09/19 History [Vitamin D3] HYDROcodone/APAP 5-325MG [[place] 1 tab PO Q6H PRN 03/09/19 03/09/19 History 5-325] Nitrofurantoin Monohyd/M-Cryst 100 mg PO Q12HR #14 cap 03/09/19 Rx [Macrobid] SILVER sulfADIAZINE Cream 1 applic TOPICAL BID 03/09/19 03/09/19 History [Silvadene 1% Cream] Allergies Allergy/AdvReac Type Severity Reaction Status Date / Time No Known Allergies Allergy Verified 02/06/19 11:04 Physical Exam Vitals: Vital Signs Temp Pulse Resp BP Pulse Ox 03/09/19 18:00 121 H 25 H 114/56 100 03/09/19 15:03 80 33 H 95/59 100 03/09/19 14:39 98.1 F 103 H 16 128/67 99 03/09/19 14:05 64 18 167/86 96 03/09/19 11:30 148/84 03/09/19 11:13 59 L 99 03/09/19 11:11 98.4 F 63 16 148/84 100 Intake and Output 03/09/19 03/09/19 03/09/19 06:59 14:59 22:59 Other: Weight 44.452 kg PHYSICAL EXAMINATION: GENERAL: The patient is alert and oriented x3, not in any acute distress.Thin built cachectic female HEENT: Pupils are round and equally reacting to light. EOMI. No scleral icterus. No conjunctival pallor. Normocephalic, atraumatic. No pharyngeal erythema. No thyromegaly. CARDIOVASCULAR: S1 and S2 present. No murmurs, rubs, or gallops. Tachycardic sinus rhythm PULMONARY: Chest is clear to auscultation, no wheezing or crackles. ABDOMEN: Soft, nontender, nondistended, normoactive bowel sounds. No palpable o rganomegaly. MUSCULOSKELETAL: No joint swelling or deformity. EXTREMITIES: No cyanosis, clubbing, or pedal edema. NEUROLOGICAL: Gross neurological examination did not reveal any focal deficits. SKIN: No rashes. Results CBC & Chem 7: 03/09/19 11:17 03/09/19 11:17 Labs: Abnormal Lab Results - Last 24 Hours (Table) 03/09/19 03/09/19 03/09/19 Range/Units 11:17 11:17 11:37 APTT 21.4 L (22.0-30.0) sec POC Glucose (mg/dL) 104 H (75-99) mg/dL ALT <6 L (9-52) U/L Urine Appearance (Clear) Ur Leukocyte Esterase (Negative) Urine RBC (0-5) /hpf Urine WBC (0-5) /hpf Ur Squamous Epith Cells (0-4) /hpf Urine Bacteria (None) /hpf Urine Mucus (None) /hpf 03/09/19 Range/Units 12:47 APTT (22.0-30.0) sec POC Glucose (mg/dL) (75-99) mg/dL ALT (9-52) U/L Urine Appearance Cloudy H (Clear) Ur Leukocyte Esterase Large H (Negative) Urine RBC 9 H (0-5) /hpf Urine WBC 46 H (0-5) /hpf Ur Squamous Epith Cells 11 H (0-4) /hpf Urine Bacteria Rare H (None) /hpf Urine Mucus Rare H (None) /hpf Assessment and Plan Plan: -Syncope will obtain echocardiogram, patient will be monitored overnight -Asymptomatic bacteriuria patient will not require any antibiotics urine is abnormal but doesn't have urinary tract infection. Mostly this is a contaminated urine sample patient does not have any symptoms of UTI. 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
[2019-03-09] MEDS: APIXABAN 5 MG TAB PO SCH (22:08)
[2019-03-10 06:55] LABS: Glucose,Whole Blood 87 mg/dL (75-99)
[2019-03-10] MEDS: APIXABAN 5 MG TAB PO SCH (09:06)
[2019-03-10 09:07] VITALS: RESP 16
--- NOTE | 2019-03-10 10:50 | CONS ---
CONSULTATION Mrs Hernandez is an 88-year-old female who presented to the emergency room with symptoms of weakness. There was a question of syncope, but according to the patient, she did not pass out. She has been feeling weak and tired. She is very vague about why she is in the hospital. According to her, she had no prior cardiac history. She has history of cancer for which she has been followed by Dr. Dunbar, but has been stable in that regard. She is not very active physically but there is no acute changes in her activity. She denies any dyspnea. She denies any dizziness. She denies any palpitation. She denies any PND, orthopnea, or peripheral edema. Her last echocardiogram available to me dates back to September 2016 and at that time her ejection fraction was 50% to 55%. Patient has been admitted in 2017 with symptoms of atypical chest pain. She has a prior history of breast cancer and pulmonary embolism for which she has been anticoagulated. Her coronary risk factors are positive for hypertension, she is nondiabetic. MEDICATION: Include amlodipine 5 mg daily, hydrocodone, Eliquis 5 mg twice a day. REVIEW OF SYSTEMS: RESPIRATORY SYSTEM: She has no documented history of asthma, emphysema or recent wheezing. GI SYSTEM: No recent GI bleeding, no peptic ulcer disease. SYSTEM: No dysuria or hematuria. NERVOUS SYSTEM: No history of stroke or seizure. PHYSICAL EXAMINATION: She is an 88-year-old female, alert, with some element of confusion. Blood pressure 145/60 with a heart rate in the 80s. HEAD: Normocephalic. EYES: Sclerae nonicteric. NECK: Good upstroke, no greenish distention. LUNGS: Clear to auscultation. HEART: Regular rhythm S1, S2. No S3 with a systolic ejection murmur heard at the base. No diastolic murmur no rub. ABDOMEN: Soft, nontender, positive bowel sounds, no organomegaly. EXTREMITIES: No edema, intact distal pulses. LAB DATA: Lab data revealed troponin less than 0.012 and 0.018. Hemoglobin 14.6, white blood cell 7.3, BUN and creatinine 14 and 0.86. EKG revealed a sinus mechanism with a left axis deviation, nonspecific ST-T wave changes. Chest x-ray shows chronic emphysematous changes with cardiomegaly. IMPRESSION: 1. Symptoms of weakness and dizziness, no clear evidence of cardiac abnormalities at this time. 2. History of hypertension. 3. History of pulmonary embolism for which she is anticoagulated. 4. Questionable urinary tract infection. RECOMMENDATION: From the cardiac standpoint, I see no evidence of active cardiac abnormality at this time. I will review the results for echocardiogram, If there is no evidence of significant abnormalities, then no further cardiac workup will be needed. Thank you for this consult. MMDINOL / IJN: [id number] /
[2019-03-10 11:47] LABS: Glucose,Whole Blood 120 mg/dL (75-99)
[2019-03-10 12:13] VITALS: BP 122/66; TEMP 97.9
[2019-03-10 12:49] VITALS: PULSE 82
--- NOTE | 2019-03-10 13:15 | ECHOF ---
Referral Reason:syncope MEASUREMENTS -------- HEIGHT: 165.1 cm WEIGHT: 44.5 kg BP: IVSd: 1.1 cm (0.6 - 1.1) LVIDd: 2.9 cm (3.9 - 5.3) LVPWd: 1.4 cm (0.6 - 1.1) IVSs: 1.6 cm LVIDs: 1.7 cm LVPWs: 1.9 cm LAESV Index (A-L): 20.61 ml/m Ao Diam: 3.0 cm (2.0 - 3.7) AV Cusp: 1.5 cm (1.5 - 2.6) LA Diam: 2.4 cm (2.7 - 3.8) MV EXCURSION: 15.618 mm (> 18.000) MV EF SLOPE: 42 mm/s (70 - 150) EPSS: 1.0 cm MV E Brendan: 0.56 m/s MV DecT: 295 ms MV A Brendan: 1.16 m/s MV E/A Ratio: 0.48 RAP: 5.00 mmHg RVSP: 39.01 mmHg FINDINGS -------- Sinus rhythm. This was a technically adequate study. The left ventricular size is normal. There is mild concentric left ventricular hypertrophy. Overa ll left ventricular systolic function is normal with, an EF between 55 - 60 %. The right ventricle is normal in size. Normal LA size by volume 22+/-6 ml/m2. The right atrial size is normal. There is mild aortic valve sclerosis. Mild mitral annular calcification present. Mild mitral regurgitation is present. Mild tricuspid regurgitation present. There is mild pulmonary hypertension. The right ventricular systolic pressure, as measured by Doppler, is 39.01mmHg. Moderate pulmonic regurgitation. The aortic root size is normal. IVC Not well visulized. There is no pericardial effusion. CONCLUSIONS -------- 1. Sinus rhythm. 2. This was a technically adequate study. 3. The left ventricular size is normal. 4. There is mild concentric left ventricular hypertrophy. 5. Overall left ventricular systolic function is normal with, an EF between 55 - 60 %. 6. Normal LA size by volume 22+/-6 ml/m2. 7. There is mild aortic valve sclerosis. 8. Mild mitral annular calcification present. 9. Mild mitral regurgitation is present. 10. Mild tricuspid regurgitation present. 11. There is mild pulmonary hypertension. 12. Moderate pulmonic regurgitation. 13. The aortic root size is normal. 14. IVC Not well visulized. 15. There is no pericardial effusion. SPOT WASHER: Alanna Peace RDCS
--- NOTE | 2019-03-10 14:16 | P.DS ---
Providers Date of admission: 03/09/19 15:46 Attending physician: Chacorta Pereira MD Consults: 03/09/19 18:12 Consult Physician Routine Consulting Provider: Kamran Carson Consult Reason/Comments: Syncope Do you want consulting provider notified?: Yes Primary care physician: [facility] Course: 88-year-old female was admitted for syncopal episode. Patient telemetry did not show any significant abnormalities and patient the echocardiogram did not show any significant abnormality patient is clinically doing well but orthostatics are bit positive today as well patient will be given IV fluids find a bolus today and patient was receiving IV fluids since last night. Patient is feeling much better today and patient will be discharged today. PHYSICAL EXAMINATION: GENERAL: The patient is alert and oriented x3, not in any acute distress.Thin built cachectic female HEENT: Pupils are round and equally reacting to light. EOMI. No scleral icterus. No conjunctival pallor. Normocephalic, atraumatic. No pharyngeal erythema. No thyromegaly. CARDIOVASCULAR: S1 and S2 present. No murmurs, rubs, or gallops. Tachycardic sinus rhythm PULMONARY: Chest is clear to auscultation, no wheezing or crackles. ABDOMEN: Soft, nontender, nondistended, normoactive bowel sounds. No palpable organomegaly. MUSCULOSKELETAL: No joint swelling or deformity. EXTREMITIES: No cyanosis, clubbing, or pedal edema. NEUROLOGICAL: Gross neurological examination did not reveal any focal deficits. SKIN: No rashes. Assessment and Plan Plan: -Syncope further workup and management as mentioned above -Asymptomatic bacteriuria patient will not require any antibiotics urine is abnormal but doesn't have urinary tract infection. Mostly this is a contaminated urine sample patient does not have any symptoms of UTI. 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 vascular dementia -History of DVT in the past: Will be resumed on anticoagulation -History of multiple cancers in the past -Moderate protein calorie malnutrition -COPD without any acute exacerbation -Sinus tachycardia resolved after IV fluid resuscitation patient is intravascular volume depleted which she resulted in her syncope Patient Condition at Discharge: Good Plan - Discharge Summary New Discharge Prescriptions: Continue Apixaban [Eliquis] 5 mg PO BID #60 tablet SILVER sulfADIAZINE Cream [Silvadene 1% Cream] 1 applic TOPICAL BID Cholecalciferol (Vitamin D3) [Vitamin D3] 2,000 unit PO DAILY Discontinued amLODIPine [Norvasc] 5 mg PO DAILY ALPRAZolam [Xanax] 0.25 mg PO Q8H PRN PRN Reason: Anxiety HYDROcodone/APAP 5-325MG [[place] 5-325] 1 tab PO Q6H PRN PRN Reason: Pain Discharge Medication List Apixaban [Eliquis] 5 mg PO BID #60 tablet 12/05/18 [Rx] Cholecalciferol (Vitamin D3) [Vitamin D3] 2,000 unit PO DAILY 03/09/19 [History] SILVER sulfADIAZINE Cream [Silvadene 1% Cream] 1 applic TOPICAL BID 03/09/19 [History] Follow up Appointment(s)/Referral(s): Abdoulaye Dunbar MD [Primary Care Provider] - 3 Days Patient Instructions/Handouts: Urinary Tract Infection in Women (ED), Altered Mental Status (ED) Discharge Disposition: HOME SELF-CARE
[2019-03-10 14:33] VITALS: BMI 16.2
== END 2019-03-10 15:40 | disposition home or self-care (01) ==
LOC: EC 11:07 → 1SOBS 15:46
PROVIDERS: ADMIT Internal Medicine; ATTEND Internal Medicine
DX: R55 Syncope and collapse (principal); R82.71 Bacteriuria; F03.90 Unspecified dementia, unspecified severity, without behavioral disturbance, psychotic disturbance, mood disturbance, and anxiety; E44.0 Moderate protein-calorie malnutrition; Z68.1 Body mass index [BMI] 19.9 or less, adult; J44.9 Chronic obstructive pulmonary disease, unspecified; R00.0 Tachycardia, unspecified; E86.9 Volume depletion, unspecified; E86.0 Dehydration; E78.5 Hyperlipidemia, unspecified; I10 Essential (primary) hypertension; H91.90 Unspecified hearing loss, unspecified ear; Z66 Do not resuscitate; Z79.899 Other long term (current) drug therapy; Z79.01 Long term (current) use of anticoagulants; Z85.72 Personal history of non-Hodgkin lymphomas; Z86.718 Personal history of other venous thrombosis and embolism; Z86.711 Personal history of pulmonary embolism; Z85.41 Personal history of malignant neoplasm of cervix uteri; Z85.3 Personal history of malignant neoplasm of breast; Z85.828 Personal history of other malignant neoplasm of skin; Z85.028 Personal history of other malignant neoplasm of stomach; Z87.440 Personal history of urinary (tract) infections; Z87.891 Personal history of nicotine dependence; Z82.3 Family history of stroke; Z82.49 Family history of ischemic heart disease and other diseases of the circulatory system
CPT/HCPCS: 93005 ×2; 96361 ×3; 96374; 96375; 99285; 36415; 93306; 80053; 84484 ×2; 85025; 85610; 85730; 81001; 80306; 71046; G0378 ×2; G0480; J2060; J0360; J0696; 80320

== ENCOUNTER 2019-06-14 01:31 | Emergency (ER) | payer MEDICARE ==
[2019-06-14 01:42] VITALS: TEMP 98
[2019-06-14 02:23] LABS: Basophils # (A) 0.1 k/uL (0-0.2); Basophils % (A) 1 %; Eosinophils # (A) 0.2 k/uL (0-0.7); Eosinophils % (A) 2 %; HGB 12.9 gm/dL (11.4-16.0); Lymphocytes # (A) 2.5 k/uL (1.0-4.8); Lymphocytes % (A) 31 %; MCH 33.1 pg (25.0-35.0); MCHC 32.2 g/dL (31.0-37.0); MCV 102.7 fL (80.0-100.0); Macrocytosis Slight; Mean Platelet Volume 7.2; Monocytes # (A) 0.4 k/uL (0-1.0); Monocytes % (A) 5 %; Neutrophils # (A) 4.6 k/uL (1.3-7.7); Neutrophils % (A) 59 %; Platelet Count 204 k/uL (150-450); RBC 3.89 m/uL (3.80-5.40); RDW 15.7 % (11.5-15.5); WBC 7.9 k/uL (3.8-10.6)
--- NOTE | 2019-06-14 02:29 | XR ---
EXAMINATION TYPE: XR Hip LT and AP Pelvis DATE OF EXAM: 06/14/2019 COMPARISON: 04/29/2018 HISTORY: Left hip pain TECHNIQUE: A single AP view of the pelvis is obtained. Two views of the left hip are obtained. FINDINGS: The pelvic ring appears intact. There is left hip prosthesis. I see no fracture. There is s ome bridging bone production on the lesser trochanter. There is aortoiliac stent. IMPRESSION: No acute abnormality of the pelvis and left hip. There is soft tissue ossification on the lesser troc hanter extending towards the ischium. This is a change compared to old exam.
[2019-06-14 02:32] LABS: ALT 13 U/L (9-52); AST 26 U/L (14-36); African American GFR (CKD) >90 (>60 ml/min/1.73 sqM); Albumin 2.7 g/dL (3.5-5.0); Alkaline Phosphatase 64 U/L (38-126); Anion Gap 12 mmol/L; Blood Urea Nitrogen 10 mg/dL (7-17); Calcium 8.4 mg/dL (8.4-10.2); Carbon Dioxide 21 mmol/L (22-30); Chloride 99 mmol/L (98-107); Glucose 93 mg/dL (74-99); Sodium 132 mmol/L (137-145); Total Bilirubin 0.4 mg/dL (0.2-1.3); Total Protein 5.1 g/dL (6.3-8.2)
[2019-06-14 02:37] LABS: INR 1.1 (<1.2); Partial Thromboplastin Time 22.2 sec (22.0-30.0); Prothrombin Time 11.1 sec (9.0-12.0)
[2019-06-14 03:00] LABS: Alcohol 136 mg/dL; Potassium 4.6 mmol/L (3.5-5.1)
--- NOTE | 2019-06-14 03:02 | ED ---
General Adult HPI - General Source: patient, EMS Mode of arrival: EMS Limitations: no limitations <Jess Martinez - Last Filed: 06/14/19 18:01> <Estevan Brantley - Last Filed: 06/15/19 12:55> - General Chief complaint: Fall Stated complaint: Fall Time Seen by Provider: 06/14/19 01:38 - History of Present Illness Initial comments: 88-year-old female patient presents to the emergency department today for evaluation after experiencing a fall at home. Patient had 2 falls today. She does admit to drinking a bottle of wine this evening. States that she generally has a bottle of wine every night. Patient does not remember the falls. Daughter lives with the patient states that she hit her left shoulder and left hip when she fell. She did recently have a surgery to repair left hip fracture and daughter is concerned about this joint. States that this seemed like the alcohol made her more woozy than usual today. Patient denies any current symptoms or concerns. Patient denies any headache, neck pain, back pain, chest pain, shortness of breath, dizziness, weakness, abdominal pain, nausea, vomiting, or difficulties with bowel movements or urination. (Jess Martinez) - Related Data Home Medications Medication Instructions Recorded Confirmed Cholecalciferol (Vitamin D3) 2,000 unit PO DAILY 03/09/19 03/09/19 [Vitamin D3] SILVER sulfADIAZINE Cream 1 applic TOPICAL BID 03/09/19 03/09/19 [Silvadene 1% Cream] Previous Rx's Medication Instructions Recorded Apixaban [Eliquis] 5 mg PO BID #60 tablet 12/05/18 Allergies Allergy/AdvReac Type Severity Reaction Status Date / Time No Known Allergies Allergy Verified 02/06/19 11:04 Review of Systems ROS Other: All systems not noted in ROS Statement are negative. <Jess Martinez - Last Filed: 06/14/19 18:01> ROS Other: All systems not noted in ROS Statement are negative. <Estevan Brantley - Last Filed: 06/15/19 12:55> ROS Statement: Those systems with pertinent positive or pertinent negative responses have been documented in the HPI. Past Medical History Past Medical History: Cancer, COPD, Diabetes Mellitus, Deep Vein Thrombosis (DVT), Hearing Disorder / Deafness, Hyperlipidemia, Hypertension, Pulmonary Embolus (PE) Additional Past Medical History / Comment(s): cervical ca, lymphoma, bilateral breast cancer, skin cancer, STOMACH CANCER, HX HEPATITIS A CHILD, VERTIGO, AAA(UNK SIZE), UTI, EATS SMALL FREQ MEALS D/T HAVING 2/3 STOMACH REMOVED. AORTIC ANEURYSM WITH AORTIC STENT, Arhtritis History of Any Multi-Drug Resistant Organisms: None Reported Past Surgical History: Hysterectomy, Joint Replacement, Orthopedic Surgery Additional Past Surgical History / Comment(s): 2/3 stomach removed, bilateral masectomy, skin cancer removal, ETHAN CATARACTS, trigger finger left hand, stent to AAA, partial left hip replacement in April 2018 Past Anesthesia/Blood Transfusion Reactions: Motion Sickness Additional Past Anesthesia/Blood Transfusion Reaction / Comment(s): VERTIGO Past Psychological History: No Psychological Hx Reported Smoking Status: Never smoker Past Alcohol Use History: Daily Past Drug Use History: None Reported - Past Family History Mother Family Medical History: CVA/TIA Additional Family Medical History / Comment(s): AGE 94 IN HER SLEEP. Father Family Medical History: Myocardial Infarction (MS) Additional Family Medical History / Comment(s): FROM [place] AGE 55 <Jess Martinez M - Last Filed: 06/14/19 18:01> General Exam Limitations: no limitations General appearance: alert, in no apparent distress, other (This is a well-devel oped, well-nourished elderly female patient in no acute distress. Vital signs upon presentation are temperature 98.0F, pulse 56, respirations 16, blood pressure 110/67, pulse ox 95% on room air.) Neck exam: Present: normal inspection, other (Nontender, no step-off, no defo rmity to firm midline palpation of the posterior cervical spine. Full range of motion without pain or limitation.). Absent: tenderness, meningismus, lymphadenopathy Respiratory exam: Present: normal lung sounds bilaterally. Absent: respiratory distress, wheezes, rales, rhonchi, stridor Cardiovascular Exam: Present: regular rate, normal rhythm, normal heart sounds. Absent: systolic murmur, diastolic murmur, rubs, gallop, clicks GI/Abdominal exam: Present: soft, normal bowel sounds. Absent: distended, tenderness, guarding, rebound, rigid Extremities exam: Present: normal inspection, full ROM, normal capillary refill, other (No hip tenderness. Pelvis is stable to firm palpation. Skin to the lower extremities is pink, warm, dry. Cap refills less than 3 seconds. Pedal pulses are 2+ and equal bilaterally. There is bilateral lower extremity edema, 2+ pitting.). Absent: tenderness, pedal edema, joint swelling, calf tenderness Neurological exam: Present: alert, oriented X3, CN II-XII intact Psychiatric exam: Present: normal affect, normal mood Skin exam: Present: warm, dry, intact, normal color. Absent: rash <Jess Martinez - Last Filed: 06/14/19 18:01> Course Vital Signs 06/14/19 06/14/19 06/14/19 01:35 04:44 06:07 Temperature 98.0 F Pulse Rate 56 L 79 80 Respiratory 16 18 17 Rate Blood Pressure 110/67 121/65 113/71 O2 Sat by Pulse 95 97 95 Oximetry EKG Findings - EKG Comments: EKG Findings:: EKG obtained at 0156 shows sinus bradycardia with a ventricular rate of 54, IN interval 188, QRS duration 88, QT 488, QTC 462. No evidence of ST elevation or depression. <Jess Martinez - Last Filed: 06/14/19 18:01> Medical Decision Making - Lab Data Result diagrams: 06/14/19 01:44 06/14/19 01:44 - Radiology Data Radiology results: report reviewed, image reviewed <Jess Martinez - Last Filed: 06/14/19 18:01> - Lab Data Result diagrams: 06/14/19 01:44 06/14/19 01:44 <Estevan Brantley - Last Filed: 06/15/19 12:55> - Medical Decision Making 88-year-old female patient presented to the emergency department today for evaluation after experiencing 2 falls at home. Physical examination was unremarkable. She is neurologically intact with no focal deficits. No evidence for injury. Daughter is present and is concerned due to recent left hip surgery. Labs reviewed and are unremarkable. Patient did have elevated alcohol level. X-ray of the left hip and pelvis was obtained and showed no acute abnormalities. CT brain and C-spine was ordered, results are pending. Care of be handed off to my attending Dr. Brantley at 0400. (Jess Martinez) I saw this patient in conjunction with the physician licensed sales assistant. I performed independent history and physical exam. Agree with case management. Patient feeling well and wanted to go home. (Estevan Brantley) - Lab Data Lab Results 06/14/19 06/14/19 06/14/19 Range/Units 01:44 01:44 01:44 WBC 7.9 (3.8-10.6) k/uL RBC 3.89 (3.80-5.40) m/uL Hgb 12.9 (11.4-16.0) gm/dL Hct 40.0 (34.0-46.0) % MCV 102.7 H (80.0-100.0) fL MCH 33.1 (25.0-35.0) pg MCHC 32.2 (31.0-37.0) g/dL RDW 15.7 H (11.5-15.5) % Plt Count 204 (150-450) k/uL Neutrophils % 59 % Lymphocytes % 31 % Monocytes % 5 % Eosinophils % 2 % Basophils % 1 % Neutrophils # 4.6 (1.3-7.7) k/uL Lymphocytes # 2.5 (1.0-4.8) k/uL Monocytes # 0.4 (0-1.0) k/uL Eosinophils # 0.2 (0-0.7) k/uL Basophils # 0.1 (0-0.2) k/uL Macrocytosis Slight PT 11.1 (9.0-12.0) sec INR 1.1 (<1.2) APTT 22.2 (22.0-30.0) sec Sodium 132 L (137-145) mmol/L Potassium 4.6 (3.5-5.1) mmol/L Chloride 99 (98-107) mmol/L Carbon Dioxide 21 L (22-30) mmol/L Anion Gap 12 mmol/L BUN 10 (7-17) mg/dL Creatinine 0.65 (0.52-1.04) mg/dL Est GFR (CKD-EPI)AfAm >90 (>60 ml/min/1.73 sqM) Est GFR (CKD-EPI)NonAf 80 (>60 ml/min/1.73 sqM) Glucose 93 (74-99) mg/dL Calcium 8.4 (8.4-10.2) mg/dL Total Bilirubin 0.4 (0.2-1.3) mg/dL AST 26 (14-36) U/L ALT 13 (9-52) U/L Alkaline Phosphatase 64 (38-126) U/L Troponin I (0.000-0.034) ng/mL Total Protein 5.1 L (6.3-8.2) g/dL Albumin 2.7 L (3.5-5.0) g/dL Urine Color Urine Appearance (Clear) Urine pH (5.0-8.0) Ur Specific [place] (1.001-1.035) Urine Protein (Negative) Urine Glucose (UA) (Negative) Urine Ketones (Negative) Urine Blood (Negative) Urine Nitrite (Negative) Urine Bilirubin (Negative) Urine Urobilinogen (<2.0) mg/dL Ur Leukocyte Esterase (Negative) Serum Alcohol 136 mg/dL 06/14/19 06/14/19 Range/Units 01:44 03:15 WBC (3.8-10.6) k/uL RBC (3.80-5.40) m/uL Hgb (11.4-16.0) gm/dL Hct (34.0-46.0) % MCV (80.0-100.0) fL MCH (25.0-35.0) pg MCHC (31.0-37.0) g/dL RDW (11.5-15.5) % Plt Count (150-450) k/uL Neutrophils % % Lymphocytes % % Monocytes % % Eosinophils % % Basophils % % Neutrophils # (1.3-7.7) k/uL Lymphocytes # (1.0-4.8) k/uL Monocytes # (0-1.0) k/uL Eosinophils # (0-0.7) k/uL Basophils # (0-0.2) k/uL Macrocytosis PT (9.0-12.0) sec INR (<1.2) APTT (22.0-30.0) sec Sodium (137-145) mmol/L Potassium (3.5-5.1) mmol/L Chloride (98-107) mmol/L Carbon Dioxide (22-30) mmol/L Anion Gap mmol/L BUN (7-17) mg/dL Creatinine (0.52-1.04) mg/dL Est GFR (CKD-EPI)AfAm (>60 ml/min/1.73 sqM) Est GFR (CKD-EPI)NonAf (>60 ml/min/1.73 sqM) Glucose (74-99) mg/dL Calcium (8.4-10.2) mg/dL Total Bilirubin (0.2-1.3) mg/dL AST (14-36) U/L ALT (9-52) U/L Alkaline Phosphatase (38-126) U/L Troponin I <0.012 (0.000-0.034) ng/mL Total Protein (6.3-8.2) g/dL Albumin (3.5-5.0) g/dL Urine Color Yellow Urine Appearance Clear (Clear) Urine pH 5.5 (5.0-8.0) Ur Specific [place] 1.009 (1.001-1.035) Urine Protein Negative (Negative) Urine Glucose (UA) Negative (Negative) Urine Ketones Negative (Negative) Urine Blood Negative (Negative) Urine Nitrite Negative (Negative) Urine Bilirubin Negative (Negative) Urine Urobilinogen <2.0 (<2.0) mg/dL Ur Leukocyte Esterase Negative (Negative) Serum Alcohol mg/dL - Radiology Data X-ray of the left hip and pelvis was obtained. Report was reviewed in its entirety. Impression by Dr. Jefferson shows no acute abnormalities of the pelvis multiple soft tissue ossification the left trochanter extending towards that she and. This is a change compared to old exam. (Jess Martinez) Disposition Is patient prescribed a controlled substance at d/c from ED?: No Time of Disposition: 03:53 <Jess Martinez - Last Filed: 06/14/19 18:01> <Estevan Brantley - Last Filed: 06/15/19 12:55> Clinical Impression: Fall, Alcohol intoxication Disposition: HOME SELF-CARE Condition: Good Instructions (If sedation given, give patient instructions): Fall Prevention for Older Adults (ED), Alcohol Intoxication (ED) Additional Instructions: Follow-up with the primary care physician for recheck in 1-2 days. Return to the emergency department immediately for any new, worsening, or concerning symptoms. Referrals: Abdoulaye Dunbar MD [Primary Care Provider] - 1-2 days
[2019-06-14 03:48] LABS: Appearance,Urine Clear (Clear); Bilirubin,Urine Negative (Negative); Blood,Urine Negative (Negative); Color,Urine Yellow; Glucose,Urine (UA) Negative (Negative); Ketones,Urine Negative (Negative); Leukocyte Esterase,Urine Negative (Negative); Nitrite,Urine Negative (Negative); PH, Urine 5.5 (5.0-8.0); Protein,Urine Negative (Negative); Specific Gravity,Urine 1.009 (1.001-1.035); Urobilinogen,Urine <2.0 mg/dL (<2.0)
--- NOTE | 2019-06-14 04:55 | CT ---
EXAM: CT Head Without Intravenous Contrast CLINICAL HISTORY: ITS.REASON CT Reason: Fall; Takes eliquis TECHNIQUE: Axial computed tomography images of the head/brain without intravenous contrast. CTDI is 45 mGy and DLP is 993 mGy-cm. This CT exam was performed using one or more of the following dose reduction techniques: automated exposure control, adjustment of the mA and/or kV according to patient size, and/or use of iterative reconstruction technique. COMPARISON: 04/28/2018 FINDINGS: Brain: No hemorrhage, large hypodensity, or mass effect. Chronic microvascular ischemic changes. Ventricles: No hydrocephalus. Age related cerebral volume loss. Bones/joints: Unremarkable. Soft tissues: Unremarkable. Sinuses: Unremarkable. Mastoid air cells: Clear. IMPRESSION: No acute hemorrhage, hydrocephalus, or mass effect. EXAM: CT Cervical Spine Without Intravenous Contrast CLINICAL HISTORY: ITS.REASON CT Reason: Fall; Takes eliquis TECHNIQUE: Axial computed tomography images of the cervical spine without intravenous contrast. CTDI is 8 mGy and DLP is 239 mGy-cm. This CT exam was performed using one or more of the following dose reduction techniques: automated exposure control, adjustment of the mA and/or kV according to patient size, and/or use of iterative reconstruction technique. COMPARISON: 04/28/2018 FINDINGS: Vertebrae: No acute fracture. Diffuse osteopenia. Discs/spinal canal/neural foramina: Mild degenerative changes. No spinal canal stenosis. Soft tissues: Moderate centrilobular emphysema. IMPRESSION: No acute fracture or subluxation.
[2019-06-14 06:10] VITALS: BP 113/71; PULSE 80; RESP 17
== END 2019-06-14 05:26 | disposition home or self-care (01) ==
LOC: EC 01:31
DX: F10.129 Alcohol abuse with intoxication, unspecified (principal); R60.0 Localized edema; Z79.01 Long term (current) use of anticoagulants; Z79.899 Other long term (current) drug therapy; Z96.642 Presence of left artificial hip joint; Z85.41 Personal history of malignant neoplasm of cervix uteri; Z85.72 Personal history of non-Hodgkin lymphomas; Z85.3 Personal history of malignant neoplasm of breast; Z85.828 Personal history of other malignant neoplasm of skin; Z90.710 Acquired absence of both cervix and uterus; Z95.828 Presence of other vascular implants and grafts; W18.39XA Other fall on same level, initial encounter; Y90.9 Presence of alcohol in blood, level not specified; Y92.009 Unspecified place in unspecified non-institutional (private) residence as the place of occurrence of the external cause
CPT/HCPCS: 36415; 93005; 80053; 84484; 85025; 85610; 85730; 81003; 73502; 72125; 70450; 99285; G0480; 80320